=== PATIENT | female | born 1950 | race Caucasian/White ===

== ENCOUNTER 2017-01-28 12:33 | Inpatient (IN) | payer MEDICARE, OTHER ==
[2017-01-28 15:48] VITALS: BMI 26.9
--- NOTE | 2017-01-28 17:01 | HP ---
CIWA Score - CIWA Score Nausea/Vomitin-Mild Nausea/No Vomiting Muscle Tremors: 5 Anxiety: 5 Agitation: 4-Moderately Restless Paroxysmal Sweats: 1-Minimal Palms Moist Orientation: 1-Uncertain about Date Tacttile Disturbances: 0-None Auditory Disturbances: 0-None Visual Disturbances: 0-None Headache: 2-Mild CIWA-Ar Total Score: 19 Admission ROS BHS - HPI Chief Complaint: WITHDRAWAL SX Allergies/Adverse Reactions: Allergies Allergy/AdvReac Type Severity Reaction Status Date / Time No Known Allergies Allergy Verified 01/28/17 16:57 History of Present Illness: 66 YEARS OLD FEMALE WITH LONG HISTORY OF ALCOHOL NICOTINE DEPENDENCE, HAS HYPOTHYROID, HYPERLIPIDEMIA, CHRONIC SINUSITIS, AND DEPRESSION IS ADMITTED TO DETOX Exam Limitations: No Limitations - Ebola screening Have you traveled outside of the country in the last 21 days: No Have you had contact with anyone from an Ebola affected area: No Have you been sick,other than usual withdrawal symptoms: No Do you have a fever: No - Review of Systems Constitutional: Chills, Changes in sleep, Weight Stable EENT: reports: Other (EYE GLASSES) Respiratory: reports: No Symptoms reported Cardiac: reports: No Symptoms Reported GI: reports: Nausea, Poor Fluid Intake, Abdominal cramping : reports: No Symptoms Reported Musculoskeletal: reports: No Symptoms Reported Integumentary: reports: No Symptoms Reported Neuro: reports: Tremors Endocrine: reports: No Symptoms Reported Hematology: reports: No Symptoms Reported Psychiatric: reports: Judgement Intact, Depressed Other Systems: Reviewed and Negative Patient History - Patient Medical History Hx Anemia: No Hx Asthma: No Hx Chronic Obstructive Pulmonary Disease (COPD): No Hx Cancer: No Hx Cardiac Disorders: No Hx Congestive Heart Failure: No Hx Hypertension: No Hx Hypercholesterolemia: Yes (zocor 40mg ) Hx Pacemaker: No HX Cerebrovascular Accident: No Hx Seizures: No Hx Diabetes: No Hx Gastrointestinal Disorders: No Hx Liver Disease: No Hx Genitourinary Disorders: No Hx Sexually Transmitted Disorders: No Hx Renal Disease (ESRD): No Hx Thyroid Disease: Yes (HYPOTHYROIDISM 137mcq) Hx Human Immunodeficiency Virus (HIV): No Hx Hepatitis C: No Hx Depression: Yes Hx Suicide Attempt: No Hx Bipolar Disorder: No Hx Schizophrenia: No - Patient Surgical History Past Surgical History: Yes Hx Neurologic Surgery: No Hx Cataract Extraction: No Hx Cardiac Surgery: No Hx Lung Surgery: No Hx Breast Surgery: No Hx Breast Biopsy: No Hx Abdominal Surgery: No Hx Appendectomy: No Hx Cholecystectomy: No Hx Genitourinary Surgery: No Hx Section: No Hx Orthopedic Surgery: No Hx Hysterectomy: No Other Surgical History: Sinus sx in 1999 and 2009 Anesthesia Reaction: No - PPD History Previous Implant?: Yes Documented Results: Negative w/proof Implanted [facility] Admission?: Yes Date: 02/02/16 Results: 0mm PPD to be Administered?: Yes - Reproductive History Patient is a Female of Child Bearing Age (11 -55 yrs old): No Last Menstrual Period: 11/16/98 Patient : No - Smoking Cessation Smoking history: Current every day smoker Have you smoked in the past 12 months: Yes Aproximately how many cigarettes per day: 6 Cigars Per Day: 0 Hx Chewing Tobacco Use: No Initiated information on smoking cessation: Yes 'Breaking Loose' booklet given: 01/28/17 - Substance & Tx. History Hx Alcohol Use: Yes Hx Substance Use: No Substance Use Type: Alcohol Hx Substance Use Treatment: Yes - Substances Abused Alcohol Route: Oral Frequency: Daily Alcohol-wine/rum Route: Oral Frequency: Daily Amount used: 1 pt. Age of first use: 12 Date of Last Use: 01/28/17 Family Disease History - Family Disease History Family Disease History: CA: Father (), Brother (leukemia), Respiratory: Mother () Admission Physical Exam BHS - Vital Signs Vital Signs: Vital Signs - 24 hr 01/28/17 15:44 Temperature 98.7 F Pulse Rate 96 H Respiratory 20 Rate Blood Pressure 156/99 - Physical General Appearance: Yes: Nourished, Appropriately Dressed, Moderate Distress, Tremorous, Irritable, Sweating, Anxious HEENTM: Yes: Hearing grossly Normal, Normal ENT Inspection, Normocephalic, Normal Voice Respiratory: Yes: Chest Non-Tender, Lungs Clear, Normal Breath Sounds, No Respiratory Distress, No Accessory Muscle Use Neck: Yes: Supple, Trachea in good position Breast: Yes: Breasts Symetrical Cardiology: Yes: Regular Rhythm, S1, S2, Tachycardia Abdominal: Yes: Non Tender, Soft Genitourinary: Yes: Within Normal Limits Back: Yes: Normal Inspection Musculoskeletal: Yes: full range of Motion, Gait Steady Extremities: Yes: Normal Range of Motion, Non-Tender, Tremors Neurological: Yes: Alert, Motor Strength 5/5, Normal Response, Depressed Affect Integumentary: Yes: Warm Lymphatic: Yes: Within Normal Limits - Diagnostic (1) Alcohol dependence with uncomplicated withdrawal Current Visit: Yes Status: Acute (2) Depression Current Visit: Yes Status: Suspected Qualifiers: Depression Type: dysthymia Qualified Code(s): F34.1 - Dysthymic disorder (3) Hypercholesteremia Current Visit: Yes Status: Acute (4) Nicotine dependence Current Visit: Yes Status: Acute Qualifiers: Nicotine product type: cigarettes Substance use status: in withdrawal Qualified Code(s): F17.213 - Nicotine dependence, cigarettes, with withdrawal (5) Hypothyroidism Current Visit: Yes Status: Acute Qualifiers: Hypothyroidism type: acquired Qualified Code(s): E03.9 - Hypothyroidism, unspecified Cleared for Admission BHS - Detox or Rehab [facility] Level of Care: Medically Managed Detox Regimen/Protocol: Librium S Breath Alcohol Content Breath Alcohol Content: 0 Urine Pregancy Test - Result Urine Test Results: Negative- NO Line Present Urine Drug Screen - Results Drug Screen Negative: No Urine Drug Screen Results: BZO-Benzodiazepines
[2017-01-28] MEDS ORDERED: P-EPHED 60MG/TRIPROLIDI 2.5MG TABLET PO PRN (17:06)
[2017-01-28] MEDS ORDERED: hydrOXYzine PAMOATE 50 MG CAPSULE (FP) PO PRN (17:06)
[2017-01-28] MEDS ORDERED: MAGNESIUM CITRATE 300 ML BOTTLE PO PRN (17:06)
[2017-01-28] MEDS ORDERED: MENTHOL/PHENOL 1 EACH UD MM PRN (17:06)
[2017-01-28] MEDS ORDERED: chlordiazePOXIDE HCL 25 MG CAPSULE PO PRN (17:06)
[2017-01-28] MEDS ORDERED: NICOTINE POLACRILEX 2 MG GUM BC PRN (17:06)
[2017-01-28] MEDS ORDERED: guaiFENesin/D-METHORPHAN HB 10 ML UNIT-DOSE CUPS PO PRN (17:06)
[2017-01-28] MEDS ORDERED: MAGNESIUM HYDROX 2400MG/30ML ORAL SUSPENSION 30 ML CUP PO PRN (17:06)
[2017-01-28] MEDS ORDERED: MAG HYDROX/AL HYDROX/SIMETH 30 ML UNIT-DOSE CUP PO PRN (17:06)
[2017-01-28] MEDS ORDERED: LOPERAMIDE HCL 2 MG CAPSULE PO PRN (17:06)
[2017-01-28] MEDS ORDERED: ACETAMINOPHEN 325 MG TABLET (FP) PO PRN (17:06)
[2017-01-28] MEDS ORDERED: IBUPROFEN 400 MG TABLET (FP) PO PRN (17:06)
[2017-01-28] MEDS ORDERED: cloNIDine HCL 0.1 MG TABLET PO PRN (17:08)
[2017-01-28] MEDS ORDERED: chlordiazePOXIDE HCL 25 MG CAPSULE PO ONE (18:30)
[2017-01-28] MEDS: ATORVASTATIN CA 20 MG TABLET (FP) PO SCH (22:47)
[2017-01-28] MEDS: chlordiazePOXIDE HCL 25 MG CAPSULE PO SCH (22:47)
[2017-01-28] MEDS: THIAMINE HCL 100 MG TABLET (FP) PO SCH (22:47)
[2017-01-28 23:08] LABS: URINE APPEARANCE CLEAR; URINE BILIRUBIN NEGATIVE (NEGATIVE); URINE COLOR STRAW; URINE GLUCOSE (UA) NEGATIVE (NEGATIVE); URINE KETONE NEGATIVE (NEGATIVE); URINE LEUK ESTERASE NEGATIVE (NEGATIVE); URINE NITRITE NEGATIVE (NEGATIVE); URINE PROTEIN NEGATIVE (NEGATIVE); URINE UROBILINOGEN NEGATIVE E.U./dl (0.2-1.0)
[2017-01-28 23:12] LABS: URINE BLOOD 2+ (NEGATIVE)
[2017-01-28 23:16] LABS: URINE HYALINE CAST 1 /lpf; URINE MUCUS RARE; URINE RBC 10 /hpf (0-3); URINE WBC <1 /hpf (3-5)
[2017-01-28] MEDS: diphenhydrAMINE HCL 50 MG CAPSULE PO PRN (23:16)
[2017-01-29] MEDS: chlordiazePOXIDE HCL 25 MG CAPSULE PO SCH ×4 (05:42→22:29)
[2017-01-29] MEDS ORDERED: LEVOTHYROXINE NA 125 MCG TABLET (FP) PO SCH (07:00)
[2017-01-29] MEDS: LEVOTHYROXINE PO SCH (07:01)
[2017-01-29] MEDS: PRENATAL VITAMINS W/ FOLIC ACID TABLET (FP) PO SCH (10:12)
[2017-01-29] MEDS: NICOTINE 14 MG/24 HOURS TOPICAL PATCH TD SCH (10:13)
[2017-01-29 10:39] LABS: ALBUMIN 3.6 g/dl (3.4-5.0); ALK PHOS 63 U/L (45-117); ANION GAP 14 (8-16); BILIRUBIN,TOTAL 0.3 mg/dL (0.2-1.0); CALCIUM 8.5 mg/dL (8.5-10.1); CO2 26 mmol/L (21-32); CREATININE 0.7 mg/dL (0.55-1.02); GLUCOSE,RANDOM 119 mg/dL (74-106); SGOT/AST 45 U/L (15-37); SGPT/ALT 58 U/L (12-78); TOT PROT 6.7 g/dl (6.4-8.2)
[2017-01-29 10:41] LABS: MCHC 33.4 g/dl (32.0-36.0); MEAN PLT VOLUME 9.1 fl (7.5-11.1); PLATELET COUNT 270 K/MM3 (134-434); RDW 13.4 % (11.6-15.6); WHITE BLOOD COUNT 8.4 K/mm3 (4.0-10.0)
--- NOTE | 2017-01-29 11:07 | EKG ---
Test Reason : Blood Pressure : / mmHG Vent. Rate : 097 BPM Atrial Rate : 097 BPM P-R Int : 132 ms QRS Dur : 078 ms QT Int : 372 ms P-R-T Axes : 052 056 032 degrees QTc Int : 472 ms NORMAL SINUS RHYTHM POSSIBLE LEFT ATRIAL ENLARGEMENT NONSPECIFIC ST ABNORMALITY ABNORMAL ECG NO PREVIOUS ECGS AVAILABLE Confirmed by NICOLE GRANADOS, CLAY ([id number]) on 01/29/2017 11:07:14 AM Referred By: Ian Zhou Confirmed By:CLAY RIVERA MD
--- NOTE | 2017-01-29 11:58 | PN ---
S CIWA - CIWA Score Nausea/Vomitin Muscle Tremors: 3 Anxiety: 3 Agitation: 2 Paroxysmal Sweats: 3 Orientation: 0-Oriented Tacttile Disturbances: 1-Very Mild Itch/Numbness Auditory Disturbances: 0-None Visual Disturbances: 0-None Headache: 0-None Present CIWA-Ar Total Score: 14 S Progress Note (SOAP) Subjective: interrupted sleep, sweats, shakes , Objective: 01/29/17 11:56 Vital Signs Temperature 99.9 F H 01/29/17 09:49 Pulse Rate 94 H 01/29/17 09:49 Respiratory Rate 18 01/29/17 09:49 Blood Pressure 143/75 01/29/17 09:49 O2 Sat by Pulse Oximetry (%) Laboratory Tests 01/28/17 01/29/17 01/29/17 22:50 06:00 06:00 WBC 8.4 D RBC 3.89 Hgb 12.9 Hct 38.5 MCV 99.0 H MCHC 33.4 RDW 13.4 Plt Count 270 MPV 9.1 Sodium 144 Potassium 3.6 Chloride 104 Carbon Dioxide 26 Anion Gap 14 BUN 10 D Creatinine 0.7 Creat Clearance w eGFR > 60 Random Glucose 119 H Calcium 8.5 Total Bilirubin 0.3 D AST 45 H D ALT 58 D Alkaline Phosphatase 63 Total Protein 6.7 Albumin 3.6 Urine Color Straw Urine Appearance Clear Urine pH 7.0 Ur Specific [place] 1.014 Urine Protein Negative Urine Glucose (UA) Negative Urine Ketones Negative Urine Blood 2+ H Urine Nitrite Negative Urine Bilirubin Negative Urine Urobilinogen Negative Ur Leukocyte Esterase Negative Urine RBC 10 Urine WBC <1 Ur Epithelial Cells Rare Hyaline Casts 1 Urine Mucus Rare pt aox3 in nad, lying in bed Assessment: 01/29/17 11:57 withdrawal sx's Plan: cont. detox increase fluids pysch eval
--- NOTE | 2017-01-29 14:39 | CONSULT ---
[facility] Psychiatric Consult - Data Date of interview: 01/29/17 Admission source: [facility] Identifying data: [facility] for this 66 y/o female seeking detox treatment on for alcohol dependence.Patient is single without children,domiciled,unemployed and supported on SSI benefits. Substance Abuse History: - Smoking Cessation. Smoking history: Current every day smoker. Have you smoked in the past 12 months: Yes. Aproximately how many cigarettes per day: 6. Cigars Per Day: 0. Hx Chewing Tobacco Use: No. Initiated information on smoking cessation: Yes. 'Breaking Loose' booklet given : 01/28/17. - Substance & Tx. History. Hx Alcohol Use: Yes. Hx Substance Use : No. Substance Use Type: Alcohol. Hx Substance Use Treatment: Yes. - Substances Abused. Alcohol. Route: Oral. Frequency: Daily. Alcohol- wine/rum. Route: Oral. Frequency: Daily. Amount used: 1 pt. Age of first use : 12. Date of Last Use: 01/28/17. Confirmed by the patient in this session. Medical History: Hypothyroidism,hypercholesterolemia and a history of surgery for sinusitis. Psychiatric History: Diagnosed with MDD (1982).History of " more than 10 psychiatric hospitalizations ".Patient is known to [facility], [facility] and [facility] in [facility].Ms Sumnergan her psychiatric outpatient services at the [facility] in [facility].Current medications (as per patient) : prozac 40 mg/day + remeron 45 mg/ hs.Patient reports that she last took these medications about a week ago.History of a suicide attempt via overdose with medications (2006). Physical/Sexual Abuse/Trauma History: Patient denies. Additional Comment: Urine Drug Screen Results: BZO-Benzodiazepines.Noted. Mental Status Exam - Mental Status Exam Alert and Oriented to: Time, Place, Person Cognitive Function: Good Patient Appearance: Well Groomed Mood: Nervous, Withdrawn, Anxious Affect: Mood Congruent Patient Behavior: Fatigued, Appropriate, Cooperative Speech Pattern: Clear, Appropriate Voice Loudness: Normal Thought Process: Goal Oriented Thought Disorder: Not Present Hallucinations: Denies Suicidal Ideation: Denies Homicidal Ideation: Denies Insight/Judgement: Fair Sleep: Poorly, Difficulty falling asleep Appetite: Good Muscle strength/Tone: Normal Gait/Station: Normal Psychiatric Findings - Problem List ([place] 1, 2,3) (1) Alcohol dependence with uncomplicated withdrawal Current Visit: Yes Status: Acute (2) MDD (major depressive disorder), recurrent episode, moderate Current Visit: Yes Status: Chronic (3) Nicotine dependence Current Visit: Yes Status: Acute Qualifiers: Nicotine product type: cigarettes Substance use status: in withdrawal Qualified Code(s): F17.213 - Nicotine dependence, cigarettes, with withdrawal (4) Hypothyroidism Current Visit: Yes Status: Chronic Qualifiers: Hypothyroidism type: acquired Qualified Code(s): E03.9 - Hypothyroidism, unspecified (5) Hypercholesteremia Current Visit: Yes Status: Chronic (6) Insomnia Current Visit: Yes Status: Acute - Initial Treatment Plan Initial Treatment Plan: Psychoeducation.Detoxification.Medications : prozac 40 mg po daily + remeron 30 mg po hs (reduced in view of potential for orthostasis) .Side effects/benefits discussed with patient.She is in agreement with this plan.Observation.Medications verified via review of pharmacy claims on 01/21/17 @ [facility]No scripts needed at discharge.
[2017-01-29] MEDS: MIRTAZAPINE 30 MG TABLET (FP) PO SCH (22:29)
[2017-01-29] MEDS: THIAMINE HCL 100 MG TABLET (FP) PO SCH (22:29)
[2017-01-29] MEDS: ATORVASTATIN CA 20 MG TABLET (FP) PO SCH (22:29)
[2017-01-30] MEDS: chlordiazePOXIDE HCL 25 MG CAPSULE PO SCH ×3 (06:09→17:45)
[2017-01-30] MEDS: LEVOTHYROXINE PO SCH (06:09)
[2017-01-30] MEDS: NICOTINE 14 MG/24 HOURS TOPICAL PATCH TD SCH (10:16)
[2017-01-30] MEDS: FLUoxetine HCL 20 MG CAPSULE (FP) PO SCH (10:16)
[2017-01-30] MEDS: PRENATAL VITAMINS W/ FOLIC ACID TABLET (FP) PO SCH (10:16)
--- NOTE | 2017-01-30 10:36 | PN ---
[facility] CIWA - CIWA Score Nausea/Vomitin-No Nausea/No Vomiting Muscle Tremors: 4-Moderate,w/Arms Extend Anxiety: 2 Agitation: 3 Paroxysmal Sweats: 2 Orientation: 0-Oriented Tacttile Disturbances: 0-None Auditory Disturbances: 0-None Visual Disturbances: 0-None Headache: 0-None Present CIWA-Ar Total Score: 11 [facility] Progress Note (SOAP) Subjective: i have a sinus infection sweats shakes body aches Objective: 01/30/17 10:35 Vital Signs Temperature 98.2 F 01/30/17 10:10 Pulse Rate 92 H 01/30/17 10:10 Respiratory Rate 18 01/30/17 10:10 Blood Pressure 120/82 01/30/17 10:10 O2 Sat by Pulse Oximetry (%) Laboratory Tests 01/28/17 01/28/17 01/29/17 06:00 22:50 06:00 WBC 8.4 D RBC 3.89 Hgb 12.9 Hct 38.5 MCV 99.0 H MCHC 33.4 RDW 13.4 Plt Count 270 MPV 9.1 Sodium Potassium Chloride Carbon Dioxide Anion Gap BUN Creatinine Creat Clearance w eGFR Random Glucose Calcium Total Bilirubin AST ALT Alkaline Phosphatase Total Protein Albumin Urine Color Straw Urine Appearance Clear Urine pH 7.0 Ur Specific [place] 1.014 Urine Protein Negative Urine Glucose (UA) Negative Urine Ketones Negative Urine Blood 2+ H Urine Nitrite Negative Urine Bilirubin Negative Urine Urobilinogen Negative Ur Leukocyte Esterase Negative Urine RBC 10 Urine WBC <1 Ur Epithelial Cells Rare Hyaline Casts 1 Urine Mucus Rare RPR Titer Hepatitis C Antibody <0.1 01/29/17 01/29/17 06:00 06:00 WBC RBC Hgb Hct MCV MCHC RDW Plt Count MPV Sodium 144 Potassium 3.6 Chloride 104 Carbon Dioxide 26 Anion Gap 14 BUN 10 D Creatinine 0.7 Creat Clearance w eGFR > 60 Random Glucose 119 H Calcium 8.5 Total Bilirubin 0.3 D AST 45 H D ALT 58 D Alkaline Phosphatase 63 Total Protein 6.7 Albumin 3.6 Urine Color Urine Appearance Urine pH Ur Specific [place] Urine Protein Urine Glucose (UA) Urine Ketones Urine Blood Urine Nitrite Urine Bilirubin Urine Urobilinogen Ur Leukocyte Esterase Urine RBC Urine WBC Ur Epithelial Cells Hyaline Casts Urine Mucus RPR Titer Nonreactive Hepatitis C Antibody awake/alert ambulating no acute distress Assessment: 01/30/17 10:37 withdrawal sx Plan: continue detox increase fluids augmentin 875mg bid x 7 days ocean spray
[2017-01-30] MEDS: SODIUM CHLORIDE NASAL SPRAY 44 ML BOTTLE NS PRN (12:38)
[2017-01-30] MEDS: AMOX TR/POT CLAV 875MG/125MG TABLETS (FP) PO SCH (17:45)
[2017-01-30] MEDS: chlordiazePOXIDE 5 MG CAPSULE PO SCH (22:18)
[2017-01-30] MEDS: ATORVASTATIN CA 20 MG TABLET (FP) PO SCH (22:18)
[2017-01-30] MEDS: diphenhydrAMINE HCL 50 MG CAPSULE PO PRN (22:18)
[2017-01-30] MEDS: THIAMINE HCL 100 MG TABLET (FP) PO SCH (22:18)
[2017-01-30] MEDS: MIRTAZAPINE 30 MG TABLET (FP) PO SCH (22:18)
[2017-01-31] MEDS: chlordiazePOXIDE 5 MG CAPSULE PO SCH ×3 (06:04→17:55)
[2017-01-31] MEDS: LEVOTHYROXINE PO SCH (06:04)
[2017-01-31] MEDS: AMOX TR/POT CLAV 875MG/125MG TABLETS (FP) PO SCH ×2 (07:59→18:10)
--- NOTE | 2017-01-31 09:00 | PN ---
S Progress Note (SOAP) Subjective: ALERT,IRRITABLE,ANXIOUS,INTERRUPTED SLEEP Objective: 01/31/17 08:59 Vital Signs Temperature 97 F L 01/31/17 06:27 Pulse Rate 69 01/31/17 06:27 Respiratory Rate 18 01/31/17 06:27 Blood Pressure 134/74 01/31/17 06:27 O2 Sat by Pulse Oximetry (%) Assessment: 01/31/17 09:00 WITHDRAWAL SYMPTOM Plan: CONTINUE DETOX
[2017-01-31] MEDS: PRENATAL VITAMINS W/ FOLIC ACID TABLET (FP) PO SCH (10:34)
[2017-01-31] MEDS: FLUoxetine HCL 20 MG CAPSULE (FP) PO SCH (10:34)
[2017-01-31] MEDS: NICOTINE 14 MG/24 HOURS TOPICAL PATCH TD SCH (10:36)
[2017-01-31] MEDS: MIRTAZAPINE 30 MG TABLET (FP) PO SCH (22:42)
[2017-01-31] MEDS: chlordiazePOXIDE HCL 10 MG CAPSULE PO SCH (22:42)
[2017-01-31] MEDS: ATORVASTATIN CA 20 MG TABLET (FP) PO SCH (22:42)
[2017-01-31] MEDS: THIAMINE HCL 100 MG TABLET (FP) PO SCH (22:42)
[2017-01-31] MEDS: diphenhydrAMINE HCL 50 MG CAPSULE PO PRN (22:43)
--- NOTE | 2017-01-31 23:35 | PN ---
S Progress Note Note: received nurse call bp 148/106 no chest pain no shortness of breath, no headache no blurred vision hydrochlorothiazide 12.5 mg x 1 now repeat bp around 0130 am report to md/institutional research coordinator if bp above 140/90 or below 100/60 continue detox
[2017-02-01] MEDS: chlordiazePOXIDE HCL 10 MG CAPSULE PO SCH ×2 (05:43→10:41)
--- NOTE | 2017-02-01 07:38 | PN ---
S Progress Note (SOAP) Subjective: ALERT,NO COMPLAINT Objective: 02/01/17 07:36 Vital Signs Temperature 97.3 F L 02/01/17 06:15 Pulse Rate 68 02/01/17 06:15 Respiratory Rate 16 02/01/17 06:15 Blood Pressure 136/87 02/01/17 06:15 O2 Sat by Pulse Oximetry (%) Assessment: 02/01/17 07:37 DETOX COMPLETED,NO WITHDRAWAL SYMPTOM Plan: DISCHARGE TODAY,FOLLOW UP WITH AFTER CARE PROGRAM ARRANGEMENT
--- NOTE | 2017-02-01 07:44 | DS ---
[facility] Detox Discharge Summary Admission Date: 01/28/17 Discharge Date: 02/01/17 - History Present History: Alcohol Dependence Additional Comments: FOLLOW UP WITH AFTER CARE PROGRAM ARRANGEMENT ,CONTIUNE MEDICATIONS,TO SEE PMD FOR FOLLOW UP FOR MEDICAL PROBLEM Pertinent Past History: HYPERCHOLESTEROLEMIA HYPOTHYROIDISM NICOTINE DEPENDENCE DEPRESSION - Physical Exam Results Vital Signs: Vital Signs Temperature 97.3 F L 02/01/17 06:15 Pulse Rate 68 02/01/17 06:15 Respiratory Rate 16 02/01/17 06:15 Blood Pressure 136/87 02/01/17 06:15 O2 Sat by Pulse Oximetry (%) Pertinent Admission Physical Exam Findings: WITHDRAWAL SYMPTOM - Treatment Hospital Course: Detox Protocol Followed, Detoxed Safely, Responded well, Discharged Condition Good, Rehab Referral Accepted Patient has Accepted a Rehab Referral to: [facility] - Medication Discharge Medications: Ambulatory Orders Levothyroxine [Synthroid -] 137 mcg PO DAILY 02/04/16 Simvastatin [Zocor -] 40 mg PO HS #30 tablet 02/04/16 Mirtazapine [Remeron -] 45 mg PO HS #90 tablet 02/08/16 Fluoxetine HCl [Prozac -] 40 mg PO DAILY 01/28/17 - Diagnosis (1) Alcohol dependence with uncomplicated withdrawal Current Visit: Yes Status: Acute (2) Insomnia Current Visit: Yes Status: Acute (3) Nicotine dependence Current Visit: Yes Status: Acute Qualifiers: Nicotine product type: cigarettes Substance use status: in withdrawal Qualified Code(s): F17.213 - Nicotine dependence, cigarettes, with withdrawal (4) Hypercholesteremia Current Visit: Yes Status: Chronic (5) Hypothyroidism Current Visit: Yes Status: Chronic Qualifiers: Hypothyroidism type: acquired Qualified Code(s): E03.9 - Hypothyroidism, unspecified (6) MDD (major depressive disorder), recurrent episode, moderate Current Visit: Yes Status: Chronic - AMA Did Patient Leave Against Medical Advice: No
[2017-02-01] MEDS: LEVOTHYROXINE PO SCH (07:52)
[2017-02-01] MEDS: AMOX TR/POT CLAV 875MG/125MG TABLETS (FP) PO SCH (08:07)
[2017-02-01 10:03] VITALS: BP 126/66; PULSE 83; TEMP 98.4
[2017-02-01] MEDS: PRENATAL VITAMINS W/ FOLIC ACID TABLET (FP) PO SCH (10:39)
[2017-02-01] MEDS: SODIUM CHLORIDE NASAL SPRAY 44 ML BOTTLE NS PRN (10:39)
[2017-02-01] MEDS: NICOTINE 14 MG/24 HOURS TOPICAL PATCH TD SCH (10:39)
[2017-02-01] MEDS: FLUoxetine HCL 20 MG CAPSULE (FP) PO SCH (10:41)
[2017-02-01] MEDS ORDERED: HYDROCHLOROTHIAZIDE 12.5 MG CAPSULE (FP) PO ONE (23:30)
== END 2017-02-01 12:18 | disposition other institution (70) | DRG 897 ==
LOC: YASAS 12:33 → Y6N 18:13
PROVIDERS: ADMIT Internal Medicine Addiction Medicine; ATTEND Internal Medicine Addiction Medicine
PROC: HZ2ZZZZ Detoxification Services for Substance Abuse Treatment (ICD-10-PCS; principal; 2017-02-01)
DX: F10.230 Alcohol dependence with withdrawal, uncomplicated (principal); F33.1 Major depressive disorder, recurrent, moderate; F17.213 Nicotine dependence, cigarettes, with withdrawal; G47.00 Insomnia, unspecified; E03.9 Hypothyroidism, unspecified; E78.00 Pure hypercholesterolemia, unspecified
CPT/HCPCS: 36415; 80053; 81003; 81015; 85027; 86593; 93005; 93010

== ENCOUNTER 2017-02-01 12:33 | Inpatient (IN) | payer MEDICARE, OTHER ==
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
[2017-02-01] MEDS ORDERED: MAGNESIUM CITRATE 300 ML BOTTLE PO PRN (13:57)
[2017-02-01] MEDS ORDERED: guaiFENesin/D-METHORPHAN HB 10 ML UNIT-DOSE CUPS PO PRN (13:57)
[2017-02-01] MEDS ORDERED: MENTHOL/PHENOL 1 EACH UD MM PRN (13:57)
[2017-02-01] MEDS ORDERED: IBUPROFEN 400 MG TABLET (FP) PO PRN (13:57)
[2017-02-01] MEDS ORDERED: MAGNESIUM HYDROX 2400MG/30ML ORAL SUSPENSION 30 ML CUP PO PRN (13:57)
[2017-02-01] MEDS ORDERED: MAG HYDROX/AL HYDROX/SIMETH 30 ML UNIT-DOSE CUP PO PRN (13:57)
[2017-02-01] MEDS ORDERED: ACETAMINOPHEN 325 MG TABLET (FP) PO PRN (13:57)
[2017-02-01] MEDS ORDERED: LOPERAMIDE HCL 2 MG CAPSULE PO PRN (13:57)
--- NOTE | 2017-02-01 13:57 | HP ---
REANNA GRANADOS Rehab Assess/Revision - Admission History Admitted to Rehab from: [facility] [place] Date of Admission to Rehab: 02/01/17 - Vital signs Vital Signs: Vital Signs Period Temp Pulse Resp BP Sys/Chappell Pulse Ox Last 24 Hr 98.2 F 80 19 104/64 - Findings Detox History & Physical reviewed: Yes Concur with findings: Yes Comments/Additional Findings: FOR REHAB PROTOCOL
[2017-02-01] MEDS: ATORVASTATIN CA 20 MG TABLET (FP) PO SCH (21:32)
[2017-02-01] MEDS: THIAMINE HCL 100 MG TABLET (FP) PO SCH (21:32)
[2017-02-01] MEDS: MIRTAZAPINE 15 MG TABLET (FP) PO SCH (22:05)
[2017-02-01] MEDS ORDERED: PT OWN MED DRAWER 7, Y5N ONE (22:38)
[2017-02-02] MEDS ORDERED: PT OWN MED DRAWER 7, Y5N ONE (05:04)
[2017-02-02] MEDS: LEVOTHYROXINE 112 MCG, LEVOTHYROXINE 25 MCG PO SCH (06:28)
[2017-02-02] MEDS ORDERED: LEVOTHYROXINE PO SCH (07:00)
[2017-02-02] MEDS ORDERED: LEVOTHYROXINE NA 25 MCG TABLET (FP) PO SCH (07:00)
[2017-02-02] MEDS ORDERED: AMOX TR/POT CLAV 875MG/125MG TABLETS (FP) PO SCH (08:00)
[2017-02-02] MEDS: FLUoxetine HCL 20 MG CAPSULE (FP) PO SCH (09:44)
[2017-02-02] MEDS: PRENATAL VITAMINS W/ FOLIC ACID TABLET (FP) PO SCH (09:44)
[2017-02-02] MEDS: AMOX TR/POT CLAV 875MG/125MG TABLETS (FP) PO SCH (17:44)
[2017-02-02] MEDS: ATORVASTATIN CA 20 MG TABLET (FP) PO SCH (21:32)
[2017-02-02] MEDS: THIAMINE HCL 100 MG TABLET (FP) PO SCH (21:32)
[2017-02-02] MEDS: MIRTAZAPINE 15 MG TABLET (FP) PO SCH (21:32)
[2017-02-03] MEDS ORDERED: PT OWN MED DRAWER 7, Y5N ONE ×3 (05:37→20:06)
[2017-02-03] MEDS: LEVOTHYROXINE 112 MCG, LEVOTHYROXINE 25 MCG PO SCH (06:51)
[2017-02-03] MEDS: AMOX TR/POT CLAV 875MG/125MG TABLETS (FP) PO SCH ×2 (09:42→17:30)
[2017-02-03] MEDS: FLUoxetine HCL 20 MG CAPSULE (FP) PO SCH (09:42)
[2017-02-03] MEDS: PRENATAL VITAMINS W/ FOLIC ACID TABLET (FP) PO SCH (09:42)
[2017-02-03] MEDS: SODIUM CHLORIDE NASAL SPRAY 44 ML BOTTLE NS PRN ×2 (09:43→20:05)
[2017-02-03] MEDS: MIRTAZAPINE 15 MG TABLET (FP) PO SCH (21:09)
[2017-02-03] MEDS: ATORVASTATIN CA 20 MG TABLET (FP) PO SCH (21:09)
[2017-02-03] MEDS: THIAMINE HCL 100 MG TABLET (FP) PO SCH (21:09)
[2017-02-04] MEDS ORDERED: PT OWN MED DRAWER 7, Y5N ONE ×3 (02:52→22:46)
[2017-02-04] MEDS: LEVOTHYROXINE 112 MCG, LEVOTHYROXINE 25 MCG PO SCH (06:12)
[2017-02-04] MEDS: FLUoxetine HCL 20 MG CAPSULE (FP) PO SCH (09:53)
[2017-02-04] MEDS: PRENATAL VITAMINS W/ FOLIC ACID TABLET (FP) PO SCH (09:53)
[2017-02-04] MEDS: AMOX TR/POT CLAV 875MG/125MG TABLETS (FP) PO SCH ×2 (09:53→17:50)
[2017-02-04] MEDS: SODIUM CHLORIDE NASAL SPRAY 44 ML BOTTLE NS PRN (09:55)
[2017-02-04] MEDS: THIAMINE HCL 100 MG TABLET (FP) PO SCH (21:19)
[2017-02-04] MEDS: ATORVASTATIN CA 20 MG TABLET (FP) PO SCH (21:19)
[2017-02-04] MEDS: MIRTAZAPINE 15 MG TABLET (FP) PO SCH (21:19)
[2017-02-05] MEDS: SODIUM CHLORIDE NASAL SPRAY 44 ML BOTTLE NS PRN ×2 (06:16→10:04)
[2017-02-05] MEDS: LEVOTHYROXINE 112 MCG, LEVOTHYROXINE 25 MCG PO SCH (06:17)
[2017-02-05] MEDS: PRENATAL VITAMINS W/ FOLIC ACID TABLET (FP) PO SCH (10:00)
[2017-02-05] MEDS: AMOX TR/POT CLAV 875MG/125MG TABLETS (FP) PO SCH ×2 (10:00→17:40)
[2017-02-05] MEDS: FLUoxetine HCL 20 MG CAPSULE (FP) PO SCH (10:01)
[2017-02-05] MEDS ORDERED: PT OWN MED DRAWER 7, Y5N ONE ×3 (10:02→12:04)
[2017-02-05] MEDS: ATORVASTATIN CA 20 MG TABLET (FP) PO SCH (21:24)
[2017-02-05] MEDS: MIRTAZAPINE 15 MG TABLET (FP) PO SCH (21:24)
[2017-02-05] MEDS: THIAMINE HCL 100 MG TABLET (FP) PO SCH (21:25)
[2017-02-06] MEDS ORDERED: PT OWN MED DRAWER 7, Y5N ONE ×2 (03:47→17:42)
[2017-02-06] MEDS: LEVOTHYROXINE 112 MCG, LEVOTHYROXINE 25 MCG PO SCH (06:40)
[2017-02-06] MEDS: AMOX TR/POT CLAV 875MG/125MG TABLETS (FP) PO SCH ×2 (10:33→17:42)
[2017-02-06] MEDS: FLUoxetine HCL 20 MG CAPSULE (FP) PO SCH (10:33)
[2017-02-06] MEDS: PRENATAL VITAMINS W/ FOLIC ACID TABLET (FP) PO SCH (10:33)
[2017-02-06] MEDS: SODIUM CHLORIDE NASAL SPRAY 44 ML BOTTLE NS PRN (17:42)
[2017-02-06] MEDS: ATORVASTATIN CA 20 MG TABLET (FP) PO SCH (21:43)
[2017-02-06] MEDS: THIAMINE HCL 100 MG TABLET (FP) PO SCH (21:43)
[2017-02-06] MEDS: MIRTAZAPINE 15 MG TABLET (FP) PO SCH (21:43)
[2017-02-07] MEDS ORDERED: PT OWN MED DRAWER 7, Y5N ONE (03:34)
[2017-02-07] MEDS: LEVOTHYROXINE 112 MCG, LEVOTHYROXINE 25 MCG PO SCH (06:36)
[2017-02-07] MEDS: PRENATAL VITAMINS W/ FOLIC ACID TABLET (FP) PO SCH (10:29)
[2017-02-07] MEDS: AMOX TR/POT CLAV 875MG/125MG TABLETS (FP) PO SCH (10:29)
[2017-02-07] MEDS: FLUoxetine HCL 20 MG CAPSULE (FP) PO SCH (10:29)
[2017-02-07] MEDS: MIRTAZAPINE 15 MG TABLET (FP) PO SCH (21:44)
[2017-02-07] MEDS: ATORVASTATIN CA 20 MG TABLET (FP) PO SCH (21:45)
[2017-02-07] MEDS: THIAMINE HCL 100 MG TABLET (FP) PO SCH (21:45)
[2017-02-07] MEDS: diphenhydrAMINE HCL 50 MG CAPSULE PO PRN (21:46)
[2017-02-08] MEDS: LEVOTHYROXINE 112 MCG, LEVOTHYROXINE 25 MCG PO SCH (06:23)
--- NOTE | 2017-02-08 10:25 | PN ---
Psychiatric Progress Note Vital Signs: Vital Signs Period Temp Pulse Resp BP Sys/Chappell Pulse Ox Last 24 Hr 98.0 F 79 16-18 160/69 Date of Session: 02/08/17 Chief Complaint:: Santos depressed,thinking a lot,still some cravings and dreams about drinking. HPI: Patient addressed Alcohol dependence comorbid with Major Depressive Disorder. ROS: Significant for Hypothyroidism,Hyperlipidemia. Current Medications: Active Medications Generic Name Dose Route Start Last Admin Trade Name Freq PRN Reason Stop Dose Admin Acetaminophen 650 mg 02/01/17 13:57 Tylenol - PO Q4H PRN FEVER OR PAIN Al Hydroxide/Mg Hydroxide 30 ml 02/01/17 13:57 Mylanta Oral Suspension - PO Q6H PRN DYSPEPSIA Aripiprazole 5 mg 02/08/17 10:30 Abilify PO DAILY CURT Atorvastatin Calcium 20 mg 02/01/17 22:00 02/07/17 21:45 Lipitor - PO 20 mg HS CURT Administration Diphenhydramine HCl 50 mg 02/01/17 13:57 02/07/17 21:46 Benadryl - PO 50 mg HSMR1 PRN Administration FOR ITCHING Eucalyptus/Menthol/Phenol/Sorbitol 1 each 02/01/17 13:57 Cepastat Lozenge - MM Q4H PRN SORE THROAT Fluoxetine HCl 60 mg 02/08/17 10:30 Prozac - PO DAILY [facility] Guaifenesin 10 ml 02/01/17 13:57 Robitussin Dm - PO Q6H PRN COUGH Hydroxyzine Pamoate 50 mg 02/01/17 13:57 Vistaril - PO Q4H PRN AGITATION Ibuprofen 400 mg 02/01/17 13:57 Motrin - PO Q6H PRN PAIN Levothyroxine Sodium 112 mcg/ 137 mcg 02/02/17 07:00 02/08/17 06:23 Levothyroxine Sodium 25 mcg PO 137 mcg DAILY@0700 CURT Administration Loperamide HCl 4 mg 02/01/17 13:57 Imodium - PO Q6H PRN DIARRHEA Magnesium Hydroxide 30 ml 02/01/17 13:57 Milk Of Magnesia - PO DAILY PRN CONSTIPATION Mirtazapine 45 mg 02/01/17 22:00 02/07/17 21:44 Remeron - PO 45 mg HS CURT Administration Multivit/Folic Acid/Iron 1 tab 02/02/17 10:00 02/07/17 10:29 Vitamins (Sjr) - PO 1 tab DAILY CURT Administration Pseudoephedrine/Triprolidine 1 combo 02/01/17 13:57 Actifed - PO TID PRN NASAL CONGESTION Sodium Chloride 2 spray 02/02/17 21:34 02/06/17 17:42 [place] Nasal [place] - NS 2 sprays TID PRN Administration NASAL CONGESTION Thiamine HCl 100 mg 02/01/17 22:00 02/07/17 21:45 Vitamin B1 - PO 100 mg HS CURT Administration Current Side Effect: No Lab tests ordered: No Lab tests reviewed: Yes Provider note:: Chart was revuewed,Attending Admission notes appreciated.Patient addressed continues anxiety,depressed mood,stil some craving and thoughts about drniking.Properties of Prozac and Abilify has been discussed with the patient including side effects profile,benefits adn dose adjustment.Patient agrees to start Abilify 5 mg po daily and Prozac 60 mg po daily(will be adjusted from 40 mg po daily to 60 mg po daily). Supportive therapy provided including relaxation techniques,behavioral odification.Emotional support provided. Total face to face time:: 35 Mental Status Exam - Mental Status Exam Alert and Oriented to: Time, Place, Person Cognitive Function: Grossly Intact Patient Appearance: Well Groomed Mood: Sad, Anxious Affect: Labile Patient Behavior: Cooperative Speech Pattern: Clear Voice Loudness: Mildly Soft/Quiet Thought Process: Goal Oriented Thought Disorder: Not Present Hallucinations: Denies Suicidal Ideation: Denies Homicidal Ideation: Denies Insight/Judgement: Fair Sleep: Fair Appetite: Good Muscle strength/Tone: Normal Gait/Station: Normal Psychiatric Treatment Plan - Problem List (1) Nicotine dependence Current Visit: No Qualifiers: Qualified Code(s): F17.213 - Nicotine dependence, cigarettes, with withdrawal (2) Alcohol dependence Current Visit: No (3) Hypercholesteremia Current Visit: No (4) Hypothyroidism Current Visit: No Qualifiers: Qualified Code(s): E03.9 - Hypothyroidism, unspecified (5) MDD (major depressive disorder), recurrent episode, moderate Current Visit: No
[2017-02-08] MEDS: PRENATAL VITAMINS W/ FOLIC ACID TABLET (FP) PO SCH (10:52)
[2017-02-08] MEDS: FLUoxetine HCL 20 MG CAPSULE (FP) PO SCH ×2 (10:53→10:54)
[2017-02-08] MEDS: ARIPiprazole 5 MG TABLET (FP) PO SCH (10:53)
[2017-02-08] MEDS ORDERED: COLLOIDAL OATMEAL 1 BAR EACH TP PRN (12:23)
[2017-02-08] MEDS: MIRTAZAPINE 15 MG TABLET (FP) PO SCH (21:33)
[2017-02-08] MEDS: ATORVASTATIN CA 20 MG TABLET (FP) PO SCH (21:33)
[2017-02-08] MEDS: THIAMINE HCL 100 MG TABLET (FP) PO SCH (21:34)
[2017-02-09] MEDS ORDERED: PT OWN MED DRAWER 7, Y5N ONE ×2 (06:28→20:27)
[2017-02-09] MEDS: LEVOTHYROXINE 112 MCG, LEVOTHYROXINE 25 MCG PO SCH (06:56)
[2017-02-09] MEDS: FLUoxetine HCL 20 MG CAPSULE (FP) PO SCH (10:23)
[2017-02-09] MEDS: PRENATAL VITAMINS W/ FOLIC ACID TABLET (FP) PO SCH (10:23)
[2017-02-09] MEDS: ARIPiprazole 5 MG TABLET (FP) PO SCH (10:24)
[2017-02-09] MEDS: hydrOXYzine PAMOATE 50 MG CAPSULE (FP) PO PRN (18:05)
[2017-02-09] MEDS: ATORVASTATIN CA 20 MG TABLET (FP) PO SCH (21:28)
[2017-02-09] MEDS: SODIUM CHLORIDE NASAL SPRAY 44 ML BOTTLE NS PRN (21:28)
[2017-02-09] MEDS: THIAMINE HCL 100 MG TABLET (FP) PO SCH (21:29)
[2017-02-09] MEDS: MIRTAZAPINE 15 MG TABLET (FP) PO SCH (21:29)
[2017-02-10] MEDS ORDERED: PT OWN MED DRAWER 7, Y5N ONE ×2 (05:52→20:17)
[2017-02-10] MEDS: LEVOTHYROXINE 112 MCG, LEVOTHYROXINE 25 MCG PO SCH (06:52)
[2017-02-10] MEDS: FLUoxetine HCL 20 MG CAPSULE (FP) PO SCH (10:12)
[2017-02-10] MEDS: ARIPiprazole 5 MG TABLET (FP) PO SCH (10:12)
[2017-02-10] MEDS: PRENATAL VITAMINS W/ FOLIC ACID TABLET (FP) PO SCH (10:12)
[2017-02-10] MEDS: hydrOXYzine PAMOATE 50 MG CAPSULE (FP) PO PRN (16:32)
[2017-02-10] MEDS: MIRTAZAPINE 15 MG TABLET (FP) PO SCH (21:25)
[2017-02-10] MEDS: THIAMINE HCL 100 MG TABLET (FP) PO SCH (21:25)
[2017-02-10] MEDS: ATORVASTATIN CA 20 MG TABLET (FP) PO SCH (21:25)
[2017-02-11] MEDS ORDERED: PT OWN MED DRAWER 7, Y5N ONE (04:01)
[2017-02-11] MEDS: LEVOTHYROXINE 112 MCG, LEVOTHYROXINE 25 MCG PO SCH (06:30)
[2017-02-11] MEDS: PRENATAL VITAMINS W/ FOLIC ACID TABLET (FP) PO SCH (10:04)
[2017-02-11] MEDS: ARIPiprazole 5 MG TABLET (FP) PO SCH (10:04)
[2017-02-11] MEDS: FLUoxetine HCL 20 MG CAPSULE (FP) PO SCH (10:05)
[2017-02-11] MEDS: hydrOXYzine PAMOATE 50 MG CAPSULE (FP) PO PRN (10:28)
[2017-02-11] MEDS: THIAMINE HCL 100 MG TABLET (FP) PO SCH (21:30)
[2017-02-11] MEDS: diphenhydrAMINE HCL 50 MG CAPSULE PO PRN (21:30)
[2017-02-11] MEDS: MIRTAZAPINE 15 MG TABLET (FP) PO SCH (21:30)
[2017-02-11] MEDS: ATORVASTATIN CA 20 MG TABLET (FP) PO SCH (21:30)
[2017-02-12] MEDS ORDERED: PT OWN MED DRAWER 7, Y5N ONE ×2 (03:12→20:12)
[2017-02-12] MEDS: LEVOTHYROXINE 112 MCG, LEVOTHYROXINE 25 MCG PO SCH (06:24)
[2017-02-12] MEDS: PRENATAL VITAMINS W/ FOLIC ACID TABLET (FP) PO SCH (09:55)
[2017-02-12] MEDS: FLUoxetine HCL 20 MG CAPSULE (FP) PO SCH (09:55)
[2017-02-12] MEDS: ARIPiprazole 5 MG TABLET (FP) PO SCH (09:55)
[2017-02-12] MEDS: hydrOXYzine PAMOATE 50 MG CAPSULE (FP) PO PRN (18:18)
[2017-02-12] MEDS: MIRTAZAPINE 15 MG TABLET (FP) PO SCH (21:37)
[2017-02-12] MEDS: SODIUM CHLORIDE NASAL SPRAY 44 ML BOTTLE NS PRN (21:37)
[2017-02-12] MEDS: ATORVASTATIN CA 20 MG TABLET (FP) PO SCH (21:37)
[2017-02-12] MEDS: THIAMINE HCL 100 MG TABLET (FP) PO SCH (21:37)
[2017-02-13] MEDS: LEVOTHYROXINE 112 MCG, LEVOTHYROXINE 25 MCG PO SCH (06:31)
[2017-02-13] MEDS: P-EPHED 60MG/TRIPROLIDI 2.5MG TABLET PO PRN (07:43)
[2017-02-13] MEDS: FLUoxetine HCL 20 MG CAPSULE (FP) PO SCH (10:02)
[2017-02-13] MEDS: ARIPiprazole 5 MG TABLET (FP) PO SCH (10:02)
[2017-02-13] MEDS: PRENATAL VITAMINS W/ FOLIC ACID TABLET (FP) PO SCH (10:03)
[2017-02-13] MEDS: hydrOXYzine PAMOATE 50 MG CAPSULE (FP) PO PRN ×2 (10:04→17:23)
[2017-02-13] MEDS: THIAMINE HCL 100 MG TABLET (FP) PO SCH (21:36)
[2017-02-13] MEDS: MIRTAZAPINE 15 MG TABLET (FP) PO SCH (21:36)
[2017-02-13] MEDS: ATORVASTATIN CA 20 MG TABLET (FP) PO SCH (21:36)
[2017-02-14] MEDS: LEVOTHYROXINE 112 MCG, LEVOTHYROXINE 25 MCG PO SCH (06:22)
[2017-02-14] MEDS: P-EPHED 60MG/TRIPROLIDI 2.5MG TABLET PO PRN (06:23)
[2017-02-14] MEDS: FLUoxetine HCL 20 MG CAPSULE (FP) PO SCH (10:19)
[2017-02-14] MEDS: PRENATAL VITAMINS W/ FOLIC ACID TABLET (FP) PO SCH (10:19)
[2017-02-14] MEDS: ARIPiprazole 5 MG TABLET (FP) PO SCH (10:19)
[2017-02-14] MEDS: hydrOXYzine PAMOATE 50 MG CAPSULE (FP) PO PRN (17:06)
[2017-02-14] MEDS: diphenhydrAMINE HCL 50 MG CAPSULE PO PRN (21:38)
[2017-02-14] MEDS: ATORVASTATIN CA 20 MG TABLET (FP) PO SCH (21:38)
[2017-02-14] MEDS: MIRTAZAPINE 15 MG TABLET (FP) PO SCH (21:38)
[2017-02-14] MEDS: THIAMINE HCL 100 MG TABLET (FP) PO SCH (21:38)
[2017-02-15] MEDS ORDERED: PT OWN MED DRAWER 7, Y5N ONE (06:00)
[2017-02-15] MEDS: P-EPHED 60MG/TRIPROLIDI 2.5MG TABLET PO PRN (06:16)
[2017-02-15] MEDS: LEVOTHYROXINE 112 MCG, LEVOTHYROXINE 25 MCG PO SCH (06:16)
[2017-02-15 07:35] VITALS: BP 147/84; PULSE 67; TEMP 97.4
[2017-02-15] MEDS: PRENATAL VITAMINS W/ FOLIC ACID TABLET (FP) PO SCH (09:05)
[2017-02-15] MEDS: FLUoxetine HCL 20 MG CAPSULE (FP) PO SCH (09:05)
[2017-02-15] MEDS: ARIPiprazole 5 MG TABLET (FP) PO SCH (09:05)
[2017-02-15] MEDS: SODIUM CHLORIDE NASAL SPRAY 44 ML BOTTLE NS PRN (09:06)
--- NOTE | 2017-02-15 09:09 | PN ---
Psychiatric Progress Note Vital Signs: Vital Signs Period Temp Pulse Resp BP Sys/Chappell Pulse Ox Last 24 Hr 97.4 F 67 18-18 147/84 Date of Session: 02/15/17 Chief Complaint:: Discharge visit HPI: Patient addressed Alcohol dependence comorbid with Major Depressive Disorder. ROS: Significant for Hypothyroidism,Hyperlipidemia. Current Medications: Active Medications Generic Name Dose Route Start Last Admin Trade Name Freq PRN Reason Stop Dose Admin Acetaminophen 650 mg 02/01/17 13:57 02/11/17 15:58 Tylenol - PO 650 mg Q4H PRN Administration FEVER OR PAIN Al Hydroxide/Mg Hydroxide 30 ml 02/01/17 13:57 Mylanta Oral Suspension - PO Q6H PRN DYSPEPSIA Aripiprazole 5 mg 02/08/17 10:30 02/15/17 09:05 Abilify PO 5 mg DAILY CURT Administration Atorvastatin Calcium 20 mg 02/01/17 22:00 02/14/17 21:38 Lipitor - PO 20 mg HS CURT Administration Colloidal Oatmeal 1 applic 02/08/17 12:23 02/08/17 13:35 Aveeno Soap - TP 1 bar DAILY PRN Administration HYGEINE Diphenhydramine HCl 50 mg 02/01/17 13:57 02/14/17 21:38 Benadryl - PO 50 mg HSMR1 PRN Administration FOR ITCHING Eucalyptus/Menthol/Phenol/Sorbitol 1 each 02/01/17 13:57 Cepastat Lozenge - MM Q4H PRN SORE THROAT Fluoxetine HCl 60 mg 02/08/17 10:30 02/15/17 09:05 Prozac - PO 60 mg DAILY CURT Administration Guaifenesin 10 ml 02/01/17 13:57 Robitussin Dm - PO Q6H PRN COUGH Hydroxyzine Pamoate 50 mg 02/01/17 13:57 02/14/17 17:06 Vistaril - PO 50 mg Q4H PRN Administration AGITATION Ibuprofen 400 mg 02/01/17 13:57 Motrin - PO Q6H PRN PAIN Levothyroxine Sodium 112 mcg/ 137 mcg 02/02/17 07:00 02/15/17 06:16 Levothyroxine Sodium 25 mcg PO 137 mcg DAILY@0700 CURT Administration Loperamide HCl 4 mg 02/01/17 13:57 Imodium - PO Q6H PRN DIARRHEA Magnesium Hydroxide 30 ml 02/01/17 13:57 Milk Of Magnesia - PO DAILY PRN CONSTIPATION Mirtazapine 45 mg 02/01/17 22:00 02/14/17 21:38 Remeron - PO 45 mg HS CURT Administration Multivit/Folic Acid/Iron 1 tab 02/02/17 10:00 02/15/17 09:05 Vitamins (Sjr) - PO 1 tab DAILY CURT Administration Pseudoephedrine/Triprolidine 1 combo 02/01/17 13:57 02/15/17 06:16 Actifed - PO 1 combo TID PRN Administration NASAL CONGESTION Sodium Chloride 2 spray 02/02/17 21:34 02/15/17 09:06 [place] Nasal [place] - NS 2 sprays TID PRN Administration NASAL CONGESTION Thiamine HCl 100 mg 02/01/17 22:00 02/14/17 21:38 Vitamin B1 - PO 100 mg HS CURT Administration Current Side Effect: No Lab tests ordered: No Lab tests reviewed: Yes Provider note:: Patient completed this program today.She has met her treatment goals and will continue to address her issues on outpatient basis at [facility].Patient continues to find that Remeron 45 mg po hs, Prozac 60 mg po daily and Abilify 5 mg po daily help to reduce her depressed mood,anxiety,mood instability.Therapy provided focusing on relapse prevention.Emotional support provided. Patient is stable for discharge today. Total face to face time:: 30 Mental Status Exam - Mental Status Exam Alert and Oriented to: Time, Place, Person Cognitive Function: Grossly Intact Patient Appearance: Well Groomed Mood: Hopeful, Euthymic Affect: Appropriate, Mood Congruent Patient Behavior: Cooperative Speech Pattern: Clear Voice Loudness: Normal Thought Process: Goal Oriented Thought Disorder: Not Present Hallucinations: Denies Suicidal Ideation: Denies Homicidal Ideation: Denies Insight/Judgement: Fair Sleep: Fair Appetite: Fair Muscle strength/Tone: Normal Gait/Station: Normal Psychiatric Treatment Plan - Problem List (1) Nicotine dependence Qualifiers: Qualified Code(s): F17.213 - Nicotine dependence, cigarettes, with withdrawal (4) Hypothyroidism Qualifiers: Qualified Code(s): E03.9 - Hypothyroidism, unspecified
== END 2017-02-15 09:30 | disposition home or self-care (01) | DRG 895 ==
LOC: YASAS 12:33 → Y3W 12:34 → Y3E 02-05 12:29
PROVIDERS: ADMIT Psychiatry & Neurology Psychiatry; ATTEND Psychiatry & Neurology Psychiatry
PROC: HZ42ZZZ Group Counseling for Substance Abuse Treatment, Cognitive-Behavioral (ICD-10-PCS; principal; 2017-02-15)
DX: F10.20 Alcohol dependence, uncomplicated (principal); F33.1 Major depressive disorder, recurrent, moderate; F17.213 Nicotine dependence, cigarettes, with withdrawal; E03.9 Hypothyroidism, unspecified; E78.00 Pure hypercholesterolemia, unspecified

== ENCOUNTER 2020-09-01 11:24 | Inpatient (IN) | payer MEDICARE, OTHER ==
--- NOTE | 2020-09-01 11:39 | BHS.RME ---
Substance Use & Tx History - Substance Use History Alcohol Substance amount: 2 pints rum Frequency of use: Daily Substance route: Oral Date of Last Use: 09/01/20 ( started age 27) Vaping/Electronic Cigaret Substance amount: 1 cartridge Frequency of use: Daily Substance route: Vaping Date of Last Use: 09/01/20 (started age 66) - Last Treatment Date of last treatment: 2016 Treatment type: Substance Use Disorder (DON[facility]) Where was last treatment: Detox Physical/Psych/Mental Status - Behavior General Behavior: Increased activity (restlessness, agitation) Eye Contact: Normal - Cooperativeness Cooperativeness: Cooperative - Thinking Thought Processes: Tight, Logical, Goal Directed Thought content: Future oriented - Physical Health Problems Is patient presently having any pain?: No Does patient presently have any injuries (include location): No Does patient currently have a fever: No Is patient : No CIWA Nausea/Vomitin Muscle Tremors: 3 Anxiety: 3 Agitation: 1-Slight > Activity Paroxysmal Sweats: 5 Orientation: 0-Oriented Tacttile Disturbances: 0-None Auditory Disturbances: 0-None Visual Disturbances: 0-None Headache: 0-None Present (not yet in full withdrawals due to drinking at 7AM today.) CIWA-Ar Total Score: 14
--- OUTSIDE RECORDS SUMMARY | 2020-09-01 11:47 | XMS ---
:1950 Author Organization [facility] Care Team Providers Name Role Phone Veronica, Jus Unavailable Unavailable Issack, Jus Unavailable Unavailable Issack, Jus Unavailable Unavailable OUTREACH, SAMY Unavailable Unavailable Rosina Caruso ([facility] [place] Unavailable MARCHWINSKI Unavailable Unavailable Abhyankar Unavailable Unavailable POP Unavailable Unavailable Covino Unavailable Jyung Unavailable Unavailable Jyung Unavailable Unavailable Re-disclosure Warning The records that you are about to access may contain information from federally- assisted alcohol or drug abuse programs. If such information is present, then the following federally mandated warning applies: This information has been disclosed to you from records protected by federal confidentiality rules (42 CFR part 2). The federal rules prohibit you from making any further disclosure of this information unless further disclosure is expressly permitted by the written consent of the person to whom it pertains or as otherwise permitted by 42 CFR part 2. A general authorization for the release of medical or other information is NOT sufficient for this purpose. The Federal rules restrict any use of the information to criminally investigate or prosecute any alcohol or drug abuse patient.The records that you are about to access may contain highly sensitive health information, the redisclosure of which is protected by Article 27-F of the [facility] Public Health law. If you continue you may haveaccess to information: Regarding HIV / AIDS; Provided by facilities licensed or operated by the [facility] Office of Mental Health; or Provided by the [facility] Office for People With Developmental Disabilities. If such information is present, then the following [facility] mandated warning applies: This information has been disclosed to you from confidential records which are protected by state law. State law prohibits you from making any further disclosure of this information without the specific written consent of the person to whom it pertains, or as otherwise permitted by law. Any unauthorized further disclosure in violation of state law may result in a fine or long term sentence or both. A general authorization for the release of medical or other information is NOT sufficient authorization for further disclosure. Allergies and Adverse Reactions Type Description Substance Reaction Status Data Source(s ) SYSTEMIC NO KNOWN ALLERGIES NO KNOWN ALLERGIES [facility] Encounters Encounter Providers Location Date Indications Data Source(s ) Outpatient Attender: Jagruti 08/12/2020 The [facility] 05:05:[address] [facility] EDT Patient admitted. Outpatient Attender: Jagruti 08/12/2020 04:00:51 PM The [facility] Patient admitted. Outpatient Attender: Jagruti 08/05/2020 09:44:08 AM The [facility] Patient admitted. Outpatient Attender: Jagruti 07/25/2020 01:20:24 PM The [facility] - 07/25/2020 [facility] 02:25:52 PM EDT Patient admitted. Outpatient Attender: Jagruti 07/05/2020 09:29:53 AM The [facility] Patient admitted. Outpatient Attender: KENIA 06/03/2020 11:34:28 AM The [facility] Patient admitted. Outpatient Attender: Jagruti 05/24/2020 01:54:32 PM The [facility] Patient admitted. Outpatient Attender: Eddie Hopper 05/04/2020 02:33:24 PM The [facility] - 05/04/2020 [facility] 03:41:51 PM EDT Patient admitted. Outpatient Attender: Jagruti 05/02/2020 10:58:44 AM The [facility] Patient admitted. Outpatient Attender: Jus Martin 04/20/2020 12:39:32 PM The [facility] Patient admitted. Outpatient Attender: IVORY 04/15/2020 09:59:[address] [facility] [place] Outpatient Attender: IVORY 04/13/2020 06:12:[address] [facility] ED Family Health Patient admitted. Outpatient Attender: KENIA 04/07/2020 09:59:13 AM The [facility] ED Family [facility] Patient admitted. Outpatient Attender: SAMY 03/28/2020 03:27:58 PM The [place] [facility] EDT Family Health Patient admitted. Outpatient Attender: Sendy 03/17/2020 09:30:51 AM The [facility] - 03/17/2020 Family H ealth 06:30:27 PM EDT Patient admitted. Outpatient Attender: Sendy 03/15/2020 11:07:37 AM The [facility] - 03/16/2020 Family [facility] e[facility] 01:21:54 PM EDT Patient admitted. Outpatient Attender: Sendy 03/14/2020 01:23:57 PM The [facility] - 03/19/2020 Family H ealth 12:30:17 PM EDT Patient admitted. Outpatient Attender: Jagruti 02/17/2020 12:00:00 AM The [place] [facility] Family Health Patient admitted. Outpatient Attender: SAMY 12/31/2019 11:27:11 AM The [place] For [facility] EST Family Health Patient admitted. Outpatient Attender: SAMY 12/29/2019 09:49:50 AM The [place] For [facility] EST Family Health Patient admitted. Outpatient Attender: Rosina Caruso 11/24/2019 08:49:18 AM The [place] For EST Family Health Patient admitted. Outpatient Attender: SAMY 11/20/2019 12:22:27 PM The [place] For [facility] EST Family Health Patient admitted. Outpatient Attender: Rosina Caruso 11/16/2019 02:56:30 PM The [place] For EST Family Health Patient admitted. Outpatient Attender: Jagruti 11/16/2019 10:44:07 AM The [place] [facility] EST Family Health Patient admitted. Outpatient Attender: SAMY 11/13/2019 12:23:22 PM The [place] For [facility]RE[facility] EST Family Health Patient admitted. Outpatient Attender: SAMY 11/03/2019 03:23:52 PM The [place] For [facility] EST Family Health Patient admitted. Outpatient Attender: Jagruti 09/25/2019 12:31:57 PM The [place] [facility] Family Health Patient admitted. Outpatient Attender: Jagruti 07/17/2019 08:39:35 AM The [facility] EDT - 07/17/2019 Family H ealth 12:39:59 PM EDT Patient admitted. Outpatient Attender: Jagruti 07/16/2019 09:37:50 AM The [facility] EDT Family Health Patient admitted. Immunizations Vaccine Date Status Description Data Source(s) Quadrivalent 07/25/2020 completed Quadrivalent 07/25/2020 Th e [place] Influenza 12:00:00 AM Influenza For Fami ly Vaccine, EDT Vaccine, Health Adjuvanted, Adjuvanted, Preservative Preservative Free Free influenza, 09/02/2019 completed Seasonal 09/02/2019 The Ins titute trivalent, 12:00:00 AM Trivalent For Fam renetta adjuvanted EDT Influenza Health Vaccine, Adjuvanted, Preservative Free Tdap 07/17/2019 completed Tdap 07/17/2019 The Inst itute 12:00:00 AM (Deferred: Out For Family EDT of Stock) Health Deferred: Out of Stock Medications Medication Brand Start Product Dose Route Administrative Pharmacy [facility] Indications Reaction Description Data Name Date Form Instructions Instructions Source(s) Levothyroxi levoth Oral active Other Take O NE The ne Sodium yroxin 2020 ug specified tablet ( 150 [place] 0.15 MG e 150 12:00: hypothyroidi mcg to lainey) For Family Oral Tablet MCG 00 AM sm by mouth Hea lth levothyroxi Oral EDT daily ne 150 MCG tablet Oral tablet Other specified hypothyroidism atorvastatin Atorvastatin 07/25/2020 40 Oral active Other Take The 40 MG Oral Calcium 40 MG 12:00:00 AM mg hyperlip idemia ONE [place] Tablet Oral Tab EDT tablet For Fam renetta Atorvastatin (40 mg Healt h Calcium 40 MG total) Oral Tab by mouth daily Other hyperlipidemia Levothyroxine Levothyroxine 07/25/2020 137 Oral abort ed Hypothyroidism, Take The Sodium 0.137 Sodium 137 MCG 12:00:00 AM ug unspe cified type ONE [place] MG Oral Tablet Oral Tab EDT tablet For Family Levothyroxine (137 Health Sodium 137 MCG mcg Oral Tab total) by mouth daily Hypothyroidism, unspecified type Amlodipine 5 amLODIPine 5 07/25/2020 5 Oral active Essent ial Take The MG Oral MG Oral 12:00:00 AM mg hypertension ONE [place] Tablet tablet EDT tablet For Famil y amLODIPine 5 (5 mg Health MG Oral total) tablet by mouth daily Essential hypertension Mirtazapine Mirtazapine 07/25/2020 45 Oral active Severe Take The 45 MG Oral 45 MG Oral 12:00:00 AM mg episode of ONE [place] Tablet Tab EDT recurrent tablet For Julia valente major (45 mg Health depressive total) disorder, by without mouth psychotic daily features (HCC) Severe episode of recurrent major depres sive disorder, without psychotic features (HCC) Potassium Potassium 07/05/2020 20 Oral active Hypokalemia Take The Chloride 20 Chloride ER 12:00:00 AM meq ONE [place] MEQ 20 MEQ Oral EDT tablet For Fa ambrosio Extended Tab CR (20 mEq Health Release total) Oral Tablet by Potassium mouth Chloride ER daily 20 MEQ Oral Tab CR Hypokalemia Amlodipine 5 amLODIPine 5 05/24/2020 5 Oral aborted Essen tial Take The MG Oral MG Oral 12:00:00 AM mg hypertension ONE [place] Tablet tablet EDT tablet For Famil y amLODIPine 5 (5 mg Health MG Oral total) tablet by mouth daily Essential hypertension Take ONE tablet (5 mg total) by mouth da renetta Levothyroxine Levothyroxine 05/24/2020 137 Oral abort ed Hypothyroidism, Take The Sodium 0.137 Sodium 137 MCG 12:00:00 AM ug unspe cified type ONE [place] MG Oral Tablet Oral Tab EDT tablet For Family Levothyroxine (137 Health Sodium 137 MCG mcg Oral Tab total) by mouth daily Hypothyroidism, unspecified type Take ONE tablet (137 mcg total) by mouth daily 24 HR Budesonide 9 05/16/2020 active The Budesonide 9 MG Oral 12:00:00 AM [place] MG Extended TABLET SR 24 EDT For Family Release Oral HR Health Tablet Budesonide 9 MG Oral TABLET SR 24 HR Sertraline Sertraline 05/03/2020 25 Oral aborted Recurrent Take The 25 MG Oral HCl (ZOLOFT) 12:00:00 AM mg major ONE [place] Tablet 25 MG Oral EDT depressive tablet For Family Sertraline Tab disorder, (25 mg He alth HCl (ZOLOFT) in partial total) 25 MG Oral remission by Tab (HCC) mouth daily Recurrent major depressive disorder, in partial remission (HCC) Take ONE tablet (25 mg total) by mouth d aily Levothyroxine Levothyroxine 05/03/2020 112 Oral compl eted Hypothyroidism, Take The Sodium 0.112 Sodium 112 MCG 12:00:00 AM ug unspe cified type ONE [place] MG Oral Tablet Oral Tab EDT tablet For Family Levothyroxine (112 Health Sodium 112 MCG mcg Oral Tab total) by mouth daily Hypothyroidism, unspecified type Take ONE tablet (112 mcg total) by mouth daily Potassium Potassium 05/03/2020 20 Oral aborted Hypokalemia Take The Chloride 20 Chloride ER 12:00:00 AM meq ONE [place] MEQ 20 MEQ Oral EDT tablet For Fa ambrosio Extended Tab CR (20 mEq Health Release total) Oral Tablet by Potassium mouth Chloride ER daily 20 MEQ Oral Tab CR Hypokalemia Take ONE tablet (20 mEq total) by mouth daily Loperamide loperamide 2 04/27/2020 2 mg completed 2 mg The Hydrochloride 2 MG Oral 12:00:00 AM [place] MG Oral Tablet tablet EDT For Family loperamide 2 MG Heal th Oral tablet 2 mg atorvastatin Atorvastatin 02/17/2020 40 Oral aborted Other Take The 40 MG Oral Calcium 40 MG 12:00:00 AM mg hyperlip idemia ONE [place] Tablet Oral Tab EDT tablet For Fam renetta Atorvastatin (40 mg Healt h Calcium 40 MG total) Oral Tab by mouth daily Other hyperlipidemia Take ONE tablet (40 mg total) by mouth d aily Amlodipine amLODIPine 02/17/2020 5 Oral completed Essenti al Take The 5 MG Oral 5 MG Oral 12:00:00 AM mg hypertension ONE [place] Tablet tablet EDT tablet For Famil y amLODIPine (5 mg Health 5 MG Oral total) tablet by mouth daily Essential hypertension Take ONE tablet (5 mg total) by mouth da renetta Levothyroxine Levothyroxine 02/17/2020 137 Oral compl eted Other specified Take The Sodium 0.137 Sodium 137 MCG 12:00:00 AM ug hypot hyroidism ONE [place] MG Oral Tablet Oral Tab EDT tablet For Family Levothyroxine (137 Health Sodium 137 MCG mcg Oral Tab total) by mouth daily Other specified hypothyroidism Take ONE tablet (137 mcg total) by mouth daily Mirtazapine Mirtazapine 02/17/2020 45 Oral aborted Severe Take The 45 MG Oral 45 MG Oral 12:00:00 AM mg episode of ONE [place] Tablet Tab EDT recurrent tablet For Julia valente major (45 mg Health depressive total) disorder, by without mouth psychotic daily features (HCC) Severe episode of recurrent major depres sive disorder, without psychotic features (HCC) Take ONE tablet (45 mg total) by mouth d safia Blood [id number] 02/17/2020 active Essential Dispense The Pressure 12:00:00 AM hypertension e lectronic [place] Monitor EDT Blood For Family Does not Pressure Health apply Kit monitor with upper arm cuff, use daily as directed. Essential hypertension Dispense electronic Blood Pressure monit or with upper arm cuff, use daily as directed. duloxetine DULoxetine 12/23/2019 aborted The 60 MG HCl 60 MG 12:00:00 AM In stitute Delayed Oral CAPSULE EST For Family Release Oral ENTERIC Heal th Capsule COATED DULoxetine PARTICLES HCl 60 MG Oral CAPSULE ENTERIC COATED PARTICLES Mirtazapine Mirtazapine 11/16/2019 45 Oral completed Sever e Take The 45 MG Oral 45 MG Oral 12:00:00 AM mg episode of ONE [place] Tablet Tab EST recurrent tablet For Fa ambrosio major (45 mg Health depressive total) disorder, by without mouth psychotic daily features (HCC) Severe episode of recurrent major depres sive disorder, without psychotic features (HCC) Take ONE tablet (45 mg total) by mouth leonardo baig Levothyroxine Levothyroxine 11/16/2019 137 Oral compl eted Other specified Take The Sodium 0.137 Sodium 137 MCG 12:00:00 AM ug hypot hyroidism ONE [place] MG Oral Tablet Oral Tab EST tablet For Family Levothyroxine (137 Health Sodium 137 MCG mcg Oral Tab total) by mouth daily Other specified hypothyroidism Take ONE tablet (137 mcg total) by mouth daily Fluoxetine 40 FLUoxetine HCl 09/25/2019 completed TK ONE The MG Oral 40 MG Oral Cap 12:00:00 AM C PO [place] Capsule EDT QD For Family FLUoxetine HCl Healt h 40 MG Oral Cap TK ONE C PO QD Mirtazapine Mirtazapine 09/25/2019 45 Oral completed Sever e Take The 45 MG Oral 45 MG Oral 12:00:00 AM mg episode of ONE [place] Tablet Tab EDT recurrent tablet For Fa ambrosio major (45 mg Health depressive total) disorder, by without mouth psychotic daily features (HCC) Severe episode of recurrent major depres sive disorder, without psychotic features (HCC) Take ONE tablet (45 mg total) by mouth d safia Naltrexone Naltrexone 07/17/2019 50 Oral active Alcohol Take The hydrochloride HCl 50 MG 12:00:00 AM mg abuse ONE [place] 50 MG Oral Oral Tab EDT tablet For Family Tablet (50 mg Health Naltrexone HCl total) 50 MG Oral Tab by mouth daily for 14 days Alcohol abuse Folic folic 07/17/2019 1 mg Oral completed Alcohol Take ONE The Acid 1 MG acid 1 MG 12:00:00 AM abuse ta blet [place] Oral Oral EDT (1 mg For Family Tablet tablet total) Health folic by mouth acid 1 MG daily Oral tablet Alcohol abuse Take ONE tablet (1 mg total) by mouth da renetta Thiamine thiamine 07/17/2019 100 Oral completed Alcohol Take The 100 MG 100 MG 12:00:00 AM mg abuse ONE Ins titute Oral Oral EDT tablet For Family Tablet tablet (100 mg Health thiamine total) 100 MG by Oral mouth tablet daily Alcohol abuse Take ONE tablet (100 mg total) by mouth daily Levothyroxine Levothyroxine 03/27/2019 137 Oral compl eted Other specified Take The Sodium 0.137 Sodium 137 MCG 12:00:00 AM ug hypot hyroidism ONE [place] MG Oral Tablet Oral Tab EDT tablet For Family Levothyroxine (137 Health Sodium 137 MCG mcg Oral Tab total) by mouth daily Other specified hypothyroidism Take ONE tablet (137 mcg total) by mouth daily atorvastatin Atorvastatin 03/27/2019 40 Oral completed Oth er Take The 40 MG Oral Calcium 40 MG 12:00:00 AM mg hyperlip idemia ONE [place] Tablet Oral Tab EDT tablet For Fam renetta Atorvastatin (40 mg Healt h Calcium 40 MG total) Oral Tab by mouth daily Other hyperlipidemia Take ONE tablet (40 mg total) by mouth d aily Folic folic 03/27/2019 1 mg Oral aborted Alcohol Take O NE The Acid 1 MG acid 1 MG 12:00:00 AM abuse ta blet [place] Oral Oral EDT (1 mg For Family Tablet tablet total) Health folic by mouth acid 1 MG daily Oral tablet Alcohol abuse Thiamine thiamine 03/27/2019 100 Oral aborted Alcohol Take ONE The 100 MG 100 MG 12:00:00 AM mg abuse tablet I nstitute Oral Oral EDT (100 mg For Family Tablet tablet total) Health thiamine by mouth 100 MG daily Oral tablet Alcohol abuse Mirtazapine Mirtazapine 03/27/2019 45 Oral completed Sever e Take The 45 MG Oral 45 MG Oral 12:00:00 AM mg episode of ONE [place] Tablet Tab EDT recurrent tablet For Fa ambrosio major (45 mg Health depressive total) disorder, by without mouth psychotic daily features (HCC) Severe episode of recurrent major depres sive disorder, without psychotic features (HCC) Take ONE tablet (45 mg total) by mouth d aily duloxetine DULoxetine 03/27/2019 60 Oral completed Severe Take ONE The 60 MG HCl 60 MG 12:00:00 AM mg episode of c apsule [place] Delayed Oral EDT recurrent (60 mg For F amily Release Oral CAPSULE major total) H ealth Capsule ENTERIC depressive by mouth DULoxetine COATED disorder, daily HCl 60 MG PARTICLES without Oral CAPSULE psychotic ENTERIC features COATED (HCC) PARTICLES Severe episode of recurrent major depres sive disorder, without psychotic features (HCC) Take ONE capsule (60 mg total) by mouth daily aripiprazole Aripiprazole 02/19/2019 10 Oral completed Take The 10 MG Oral (ABILIFY) 10 12:00:00 AM mg 10 mg [place] Tablet MG Oral Tab EDT by For Julia valente Aripiprazole mouth Health (ABILIFY) 10 MG Oral Tab Take 10 mg by mouth Insurance Providers Payer name Policy type Policy ID Covered Covered constitution party's Policy P migdalia / Coverage constitution party ID relationship to Jaffe Inf ormation type jaffe ADRIAN Medicare/Med [id number] CARE [facility] Managed Care PENDING SALE TO [facility] [id number] Self [id number] CARE PENDING SALE TO [facility] [id number] Self [id number] CARE PENDING SALE TO [facility] Medicare/Med 2784 [id number] CARE icaid Managed Care ADRIAN [id number] Self [id number] CARE PENDING SALE TO [facility] Medicare/Med 2784 [id number] CARE [facility] Managed Care Problems, Conditions, and Diagnoses Code Display Name Description Problem Type Effective Data Dates Source(s) K52.832 Lymphocytic colitis Lymphocytic colitis [id number] The 12:00:00 AM [place] EDT For [facility] [email or web address] Lab Results Lab Results Diagnosis 08/12/2020 The 05:05:50 PM [place] EDT For [facility] [employer] Z23 Encounter for Encounter for Diagnosis 07/25/2020 The immunization immunization 01:20:24 PM [place] EDT For [facility] [employer] I10 Essential (primary) Essential (primary) Diagnosis 020 The hypertension hypertension 01:20:24 PM [place] EDT For [facility] F33.2 Major depressive Major depressive Diagnosis 07/25/2020 Th e disorder, recurrent disorder, recurrent 01:20:2 4 PM [place] severe without severe without EDT For Julia valente psychotic features psychotic features Health Well Exam Well Exam Diagnosis 07/25/2020 The 01:20:24 PM [place] EDT For [facility] Other Other Diagnosis 07/25/2020 The 01:20:24 PM [place] EDT For [facility] E87.6 Hypokalemia Hypokalemia Diagnosis 07/05/2020 The 09:29:53 AM [place] EDT For [facility] Outreach Outreach Diagnosis 06/03/2020 The 11:34:28 AM [place] EDT For [facility] K52.832 Lymphocytic colitis Lymphocytic colitis Diagnosis 020 The 02:28:42 PM [place] EDT For [facility] F32.9 Major depressive Major depressive Diagnosis 05/24/2020 Th e disorder, single disorder, single 01:54:32 PM I nstitute episode, unspecified episode, unspecified EDT For [facility] R19.7 Diarrhea, Diarrhea, Diagnosis 05/04/2020 The unspecified unspecified 02:33:24 PM [place] EDT For [facility] Z53.20 Procedure and Procedure and Diagnosis 05/04/2020 The treatment not treatment not 02:33:24 PM Institu te carried out because carried out because EDT For Family of patient's of patient s Health decision for decision for unspecified reasons unspecified reasons Z11.4 Encounter for Encounter for Diagnosis 05/04/2020 The screening for human screening for human 02:33:2 4 PM [place] immunodeficiency immunodeficiency EDT Fo r [facility] virus [HIV] virus (HIV) [facility] F33.41 Major depressive Major depressive Diagnosis 05/02/2020 Th e disorder, recurrent, disorder, recurrent, 10:58 :44 AM [place] in partial remission in partial remission EDT For [facility] Virtual Visit Virtual Visit Diagnosis 05/02/2020 The (Telephone Only) (Telephone Only) 10:58:44 AM I nstitute EDT For [facility] R11.15 Cyclical vomiting Cyclical vomiting Diagnosis 04/20/2020 The syndrome unrelated syndrome unrelated 12:39:32 PM [place] to migraine to migraine EDT For [facility] Case Closure Case Closure Diagnosis 04/15/2020 The 09:59:00 AM [place] EDT For [facility] Missed Appointment Missed Appointment Diagnosis 0 The 06:12:07 PM [place] EDT For [facility] R45.851 Suicidal ideations Suicidal ideations Diagnosis 0 The 09:30:51 AM [place] EDT For [facility] Z20.828 Contact with and Contact with and Diagnosis 03/15/2020 Th e (suspected) exposure (suspected) exposure 11:07 :37 AM [place] to other viral to other viral EDT For Julia valente communicable communicable Health diseases diseases R68.89 Other general Other general Diagnosis 03/14/2020 The symptoms and signs symptoms and signs 01:23:57 PM [place] EDT For [facility] Appointment Reminder Appointment Reminder Diagnosis 12/31 The Call Call 11:27:11 AM [place] EST [facility] Emergency Room Visit Emergency Room Visit Diagnosis 12/29 The Follow Up Follow Up 09:49:50 AM [place] EST [facility] Depression Depression Diagnosis 11/16/2019 The 02:56:[address] [facility] Z28.21 Immunization not Immunization not Diagnosis 11/16/2019 Th e carried out because carried out because 10:44:0 7 AM [place] of patient refusal of patient refusal EST [facility] Medication Request Medication Request Diagnosis 9 The 10:44:[address] [facility] Hospital Discharge Hospital Discharge Diagnosis 9 The Appointment Appointment 03:23:[address] [facility] Forms Forms Diagnosis 07/17/2019 The 08:39:35 AM [place] EDT For [facility] Call During Clinic Call During Clinic Diagnosis 9 The Hours Hours 09:37:50 AM [place] EDT For [facility] Surgeries/Procedures Procedure Description Date Indications Data Source(s) AIIV4 VACC AIIV4 VACC Routine 07/25/2020 Need for 07/25/2020 Nee d for The INACTIVATED INACTIVATED 2:45 PM EDT prophylactic 02:45:2 5 PM prophylactic [place] PRSRV FR PRSRV FR vaccination EDT vaccinatio n For Family 0.5ML DOS IM 0.5ML DOS IM and and Health USE USE inoculation inoculation against against influenza influenza Need for prophylactic vaccination and in oculation against influenza TSH, HIGH TSH, HIGH Routine 07/25/2020 Hypothyroidism, 0 Hypothyroidism, The SENSITIVITY SENSITIVITY 2:27 PM EDT unspecified type 02: 27:00 PM unspecified type [place] (SERUM) (SERUM) EDT For [facility] Hypothyroidism, unspecified type COMP COMP Routine 05/04/2020 Hypothyroidism, 05/04/2020 Hy pothyroidism, The METABOLIC METABOLIC 2:50 PM EDT unspecified type 02:50:0 0 PM unspecified type [place] PANEL PANEL EDT For [facility] Hypothyroidism, unspecified type TSH, HIGH TSH, HIGH Routine 05/04/2020 Hypothyroidism, 0 Hypothyroidism, The SENSITIVITY SENSITIVITY 2:50 PM EDT unspecified type 02: 50:00 PM unspecified type [place] (SERUM) (SERUM) EDT [facility] Hypothyroidism, unspecified type TDAP TDAP Routine 07/17/2019 Need for prophylactic 019 Need for prophylactic The VACCINE VACCINE 9:56 AM EDT vaccination with combined 01 :56:06 PM vaccination with combined [place] 7/> YR SQ IMM uekxjqnolw-nozzutt-ddfjiyeze EDT tehtvarewz-uijhawg-khhyafxcc For [facility] (DTP) vaccine (DTP) vacc ine Health Need for prophylactic vaccination with c ombined dwguyujacz-zqwhohd-htamtlyay (DTP) vaccine TSH, HIGH TSH, HIGH Routine 07/17/2019 Alcohol 07/17/2019 Alcoho l The SENSITIVITY SENSITIVITY 9:44 AM EDT abuse 01:44:00 PM abuse [place] (SERUM) (SERUM) EDT [facility] Alcohol abuse HGA1C (HGB HGA1C (HGB Routine 07/17/2019 Alcohol 07/17/2019 Alco hol The GLYCOSYLATED) GLYCOSYLATED) 9:44 AM EDT abuse 01:44:00 PM abuse [place] EDT [facility] Alcohol abuse LIPID LIPID Routine 07/17/2019 Alcohol 07/17/2019 Alcohol Th e PANEL PANEL 9:44 AM EDT abuse 01:44:00 PM abuse [place] EDT [facility] Alcohol abuse COMP COMP Routine 07/17/2019 Alcohol 07/17/2019 Alcohol Th e METABOLIC METABOLIC 9:44 AM EDT abuse 01:44:00 PM abus e [place] PANEL PANEL EDT [facility] Alcohol abuse Results ID Date Data Source [id number] 07/25/2020 02:46:50 PM EDT [facility] Reason for Visit and Comments: Other [0] - meds refills Well Exam [1110] Other [0] - no Er visitVitals (Last File d):BP 126/70 (Orthostatic Site : Arm - Right, Orthostatic Po- siti on : Sitting, Orthostatic Cuff Size : Adult) Pulse - 78 Temp 97. 4 F (36.3 C) (Temporal) Wt 194 lb (88 kg- ) SpO2 97% BMI 30.1 8 kg/x6UlkjmSheryl Torres MA 07/25/2020 2:25 PM SignedI have identified this patient to be Lavell Cruz, -1950.Chief ComplaintPatient presents with Other m eds refills Well Exam Other no Er visitVitals: 07/25/20 1328BP: 126/70Orth ostatic Site : Arm - RightOrthostatic Position : SittingOrthostatic Cuff Size : AdultPulse: 78Temp: 97.4 F (36.3 C)TempSrc: TemporalSpO2: 97%Weight: 194 lb (88 kg)Patient reports a pain score of "0-None" in her No pain location entered forpatient.Pharmacy VerifiedAllergies VerifiedER Visit Status= Marcus Yates Lalita, MD 07/25/2020 2:25 PM SignedLavell Cruz is a 69 year old femalePatient Active Problem ListDiagnosis Hyperlipidemia Hypothyroid Alcohol abu se Tobacco use disorder 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 Diarrhea is gone. Hasan appointment with GI next month, will tell him then.ROS: no fevers, chills, cp, n/v/d, sob, ab pain, urinary problems, headache,blurry vision, numbness/tingling, rashes, unintentional weight lossEXAM:BP 126/70 (Orthostatic Site : Arm - Right, Orthostatic Position : Si tting,Orthostatic Cuff Size : Adult) | Pulse 78 | Temp 97.4 F (36.3 C) (Temporal) | Wt 194 lb (88 kg) | SpO2 97% | BMI 30.18 kg/mThe patient appears well, in no a pparent distress. Alert and oriented timesthree, pleasant and cooperative. Vi lainey signs are as noted by the nurse.1. Other hyperlipidemia- Atorvastatin Calcium 40 MG Oral Tab; Take ONE tablet (40 mg total) by mouthdaily Dispense: 30 tablet; Refill: 32. Hypothyroidism, unspecified type- Levothyroxine Sodium 137 MCG Oral Tab; T jayne ONE tablet (137 mcg total) bymouth daily Dispense: 30 tablet; Refill: 2- TSH, HIG H SENSITIVITY (SERUM); Future3. Essential hypertension- amLODIPine 5 MG Oral table t; Take ONE tablet (5 mg total) by mouth dailyDispense: 30 tablet; Refill: 24. Se octaviano episode of recurrent major depressive disorder, without psychoticfeatures (HCC )- Mirtazapine 45 MG Oral Tab; Take ONE tablet (45 mg total) by mouth dailyDispe nse: 30 tablet; Refill: 25. Need for prophylactic vaccination and inoculation against influenza- FLUCELVAX, INFLUENZA, CCIIV4, PSRV FREE, 4YRS+, 0.5 ML, PREFIL LED SYRINGE;Yanira Ahmadi MD [facility]ITALtthugh [facility] Family PhysicianNorth Carolina Specialty HospitalJagruti Ahmadi MD 07/25/2020 2:39 PM SignedAddended by: JAGRUTI RAMOS on: 07/25/2020 02:39 PM Modules accepted: Celeste Enriquez M A 07/25/2020 2:41 PM [facility] 1 sst tubessent to [facility]. She tolerated the proc edure well and will return [facility] for results.Joel Odom Erika, MA 07/25/2020 2:41 PM SignedAddended by: CELESTE BECKER on: 07/25/2020 02:41 PM Modules accepted: Martha Sewell Alexander, LPN 07/25/2020 2:46 PM Sign Pratima have identified this patient to be Lavell Cruz, -1950.Chief ComplaintPatient presents with Other meds refills Well Exam Other no Er visitAf ter obtaining consent, and per orders of Dr. Ahmadi, injection of FluADgiven by Lucien Gunderson LPN. Patient instructed to remain in clinic for 25minutes afterward s, and to report any adverse reaction to me immediately.Allergies reviewedTolerated wellEducation materials given and discussed with patient.Edmundo Fannie Gunderson Alexander, LPN 07/25/2020 2:46 PM SignedAddended by: EDMUNDO GUNDERSON o n: 07/25/2020 02:46 PM Modules accepted: Orders, SmartSetPrimary Diagnosis:F33.2 Severe episode of recurrent major depressive disorder, wi thout psychotic features (HCC) Other Diagnoses:E78.49 Other hyperlipidemia E03.9 Hypothyroidism, unspecified type I10 Essential hypertension Z23 Need for prophylactic vaccinat ion and inoculationagainst influenza F33.2 Major depressive disor merritt, recurrent severe withoutpsychotic features (Active) Comment:Billing Diagnosis E78.49 Other hyperlipidemia (Active ) Comment:Billing Diagnosis E03.9 Hyp othyroidism, unspecified (Active) Comment:Billing Diagnosis I10 Essential (primary) hypertension (Active) Comment:Billing Diagnosis Z23 Encounter for immunization (Active) Comment:Billing DiagnosisPrescription s as of 07/25/2020 Disp Refills Start End * amLODIPine 5 MG Oral tablet 30 t* 2 07/25/2020 10/23/2020 Class: E Prescribing Ro [place]: Oral Sig: Take ONE tablet (5 mg total) by mouth daily * Atorvastatin Ca lcium 40 MG Oral Tab 30 t* 3 07/25/2020 08/24/2020 Class: E Prescri lupillo Route: Oral Sig: Take ONE tablet (40 mg total) by mouth daily Blood Pr essure Monitor Does not ap* 1 kit 0 02/17/2020 Class: E Prescribing Si g: Dispense electronic Blood Pressure monitor with upper arm cuff, use daily a s directed. Budesonide 9 MG Oral TABLET SR 24 * 05/16/2020 Cla ss: Historical Med Sig: FLUTICASONE PROPIONATE, NASAL, 50 * 1 Luis* 5 11/06/2017 Class: E Prescribing Route: Nasal Sig: TWO Act (100 mcg to lainey) into each nostril daily FLUTICASONE PROPIONATE, NASAL, 50 * 0 03/15/2017 Class: Historical Med Sig: instill 1 spray into each nostril twice a day * Levothyroxine Sodium 137 MCG Oral * 30 t* 2 07/25/2020 08/24/2020 Class: E Prescribing Route: Oral Sig: Take ONE tablet (137 mcg total) by mouth daily loperamide 2 MG Oral tablet 04/27/2020 020 Class: Historical Med Si mg * Mirtazapine 45 MG Oral Tab 30 t * 2 07/25/2020 Class: E Prescribing Route: Oral Sig: Take ONE tablet (45 mg total) by mouth daily Potassium Chloride ER 20 MEQ Oral * 30 t * 1 07/05/2020 08/04/2020 Class: E Prescribing Route: Oral Sig: Titus e ONE tablet (20 mEq total) by mouth dailyAllergies As of Date: 07/25/2020(No Known Allergies)Date Reviewed: 07/25/2020Reviewed by: Sheryl Torres MA - ReviewedLevel of Service:[id number] OFFIC/OUTPT VISIT E&M EST LOW-MOD SEVER* Historical Information ----- ------Past Medical and Surgical HistoryM edical And Surgical History Item DateHyperlipidemiaDepressionHypothyroidi smNo family history on fileSocial History Marital Status: Single Sp ouse: Years of Education: # children:Social History Narrative (no ne)Social History Topics Tobacco Use: Yes Cigarettes (Packs/Day): .5 Sta rt Date: Comment: 6 a day Alcohol Use: No Drug Use: No Sexually Active: Never Immunizations Administered Bicillin LA 05/02/2017 Influenza, Injectable,(cciiv4), Qu* 11/13/2017 P neumococcal polysaccharide vaccin* 03/27/2019 Quadrivalent Influenza Vacci ne, Ad* 07/25/2020 Seasonal Trivalent Influenza Vacci* 09/02/2019 Tdap defer-07/17/2019 Name Value Range Interpretation Code Description Data Megan rce(s) Supporting Document(s ) ID Date Data Source [id number] 07/26/2020 12:09:00 PM EDT The [place] [facility] Name Value Range Interpretation Code Description Data Megan rce(s) Supporting Document(s ) TSH 13.610 0.234-4.02 Above high normal The Institu te uIU/mL 0 [facility] ID Date Data Source [id number] 05/24/2020 06:58:39 PM EDT The [place] [facility] Reason for Visit and Comments: Well E xam [1110] Follow-up for: [92] - [facility] visit , lab resultsVitals (Last Filed):BP 123/65 Pu lse 79 Temp 97.5 F (36.4 C) (Oral) Wt- 188 lb (85.3 kg) SpO2 98% BMI 29 .25 kg/p3VtfhsyCeleste Becker MA 05/24/2020 6:58 PM SignedI have identified this patient to be Fouzia Cruz, -1950.Chief ComplaintPatient presents with Well Exam Follow-[facility] for[facility] , lab resultsVitals: 05/24/20 1410BP: 123/65Pulse: 79Temp: 97.5 F (36.4 C)Te mpSrc: OralSpO2: 98%Weight: 188 lb (85.3 kg)Patient reports a pain score of "0-None" in her No pain location entered forpatient.Pharmacy VerifiedNo Recent ER VisitEmelina Odom Lalita, MD 05/24/2020 6:58 PM SignedLavell Cruz is a 69 year old femalePatient Active Problem ListDiagnosis Hyperlipidemia Hypothyroid Alcohol abuse Tobacco use disorder Severe recurrent major depression without psychotic features (HCC) Borderline per sonality disorder (HCC) PMB (postmenopausal bleeding) Emergency Room Frequent User Lymphocyti c colitisHas appointment with cardiology for dx with lymphocytic colitis, taking bude sonide orally, has refills of thismedicationDr. JASWINDER Hawley was the one who diagnosed her and did a colonoscopy. Nolonger having diarrhea.Still not drinking!ROS: no fevers, chills, cp, n/v/d, sob, ab pain, urinary problems, headache,blurry vision, numbness/tingling, rashes, unint entional weight lossTSH was 16 at last visit, low does of thyroid medication. Will increaseEXAM :BP 123/65 | Pulse 79 | Temp 97.5 F (36.4 C) (Oral) | Wt 188 lb (85.3 kg)| SpO2 98% | BMI 2 9.25 kg/mThe patient appears well, in no apparent distress. Alert and oriented timesthree , pleasant and cooperative. Vital signs are as noted by the nurse.Exam minimized to decrease COV ID-19 transmission1. Hypothyroidism, unspecified type- Levothyroxine Sodium 137 MCG Oral Tab; T jayne ONE tablet (137 mcg total) bymouth daily Dispense: 30 tablet; Refill: 22. Lymphocytic colit is3. Essential hypertension- amLODIPine 5 MG Oral tablet; Take ONE tablet (5 mg total) by mouth dailyDispense: 30 tablet; Refill: 2Lmeron Ahmadi MD [facility] HospitalPrimary Diagnosis:E03.9 Hypothyroidism, unspecified type Other Diagnoses:K52.832 Lymphocytic colitis I10 Essential hypertension F10.10 Alcohol abuse F32.9 Depression, unspecified depres joey typePrescriptions as of 05/24/2020 Disp Refills Start End * amLODIPin e 5 MG Oral tablet 30 t* 2 05/24/2020 08/22/2020 Class: E Prescribing Rou te: Oral Sig: Take ONE tablet (5 mg total) by mouth daily Atorvastatin Calcium 40 MG Oral Tab 30 t* 3 02/17/2020 03/18/2020 Class: E Prescribing Route: Oral Sig: Take ONE tablet (40 mg total) by mouth daily Blood Pressure Monitor Does not ap* 1 kit 0 02/17/2020 Class: E Prescribing Sig: Dispense electronic Blood Pressure monit or with upper arm cuff, use daily as directed. Budesonide 9 MG Oral TABLET SR 24 * 05/16/2020 Class: Historical Med Sig: DULoxetine HCl 60 MG Oral CAPSUL E * 12/23/2019 Class: Historical Med Sig: FLUTICASONE PROPIONATE, N NELLY, 50 * 1 Luis* 5 11/06/2017 Class: E Prescribing Route: Nasal Sig: TWO Act (100 mcg total) into each nostril daily FLUTICASONE PROPIONATE, NASAL, 50 * 0 03/15/2017 Class: Historical Med Sig: instill 1 spray into each nostril t wice a day * Levothyroxine Sodium 137 MCG Oral * 30 t* 2 05/24/2020 06/23/2020 Cla ss: E Prescribing Route: Oral Sig: Take ONE tablet (137 mcg total) by mouth daily * corey mide 2 MG Oral tablet 04/27/2020 05/25/2020 Class: Historical Med Si mg Mirtazapine 45 MG Oral Tab 30 t* 2 02/17/2020 Class: E Prescribing Route: Oral Sig: Take ONE tablet (45 mg total) by mouth daily Potassium Ch loride ER 20 MEQ Oral * 30 t* 1 05/03/2020 06/02/2020 Class: E Prescribing Rout e: Oral Sig: Take ONE tablet (20 mEq total) by mouth daily Sertraline HCl (ZOLOFT) 25 MG O ral* 30 t* 3 05/03/2020 06/02/2020 Class: E Prescribing Route: Oral Sig: Take ONE tablet (25 mg total) by mouth dailyAllergies As of Date: 05/24/2020(No Known Allergies)Date Reviewed: 05/24/2020Reviewed by: Celeste Becker MA - ReviewedLevel of Service:[id number] OFFIC /OUTPT VISIT E&M EST LOW-MOD SEVER* Historical Information Past Medical and Surgical HistoryMedical And Surgical History Item DateHyperlipidemiaDepressionHypothyroidi smNo family history on fileSocial History Marital Status: Single Spouse: Y ears of Education: # children:Social History Narrative (none)Social History Topics Tobacco Use: Yes Cigarettes (Packs/Day): .5 Start Date: Commen t: 6 a day Alcohol Use: No Drug Use: No Sexually Active: NeverImmunizations Administered Bicillin LA 05/02/2017 Influenza, Injectabl e,(cciiv4), Qu* 11/13/2017 Pneumococcal polysaccharide vaccin* 03/27/2019 [place] Trivalent Influenza Vacci* 09/02/2019 Tdap defer-2018 Name Value Range Interpretation Code Description Data Megan rce(s) Supporting Document(s ) ID Date Data Source [id number] 05/04/2020 03:41:54 PM EDT [facility] [place] [facility] Reason for Visit and Comments: Other [0] - pt was on the hospital and was discharged on saturday04/27/20b/c pt had constant d iarrhea, throwing up yellow liquid and pt was tested forpotasium and it was very low Bloodwork [1103] - CMP and TSHVitals (Last Filed):BP 118/78 (Orthostatic Site : Arm - Left, Orthostatic Pos- ition : Sitting, Orthostatic Cuff Size : Adult) Pulse 8- 6 Temp 98.3 F (36.8 C) (Oral) Wt 186 lb (84. 4 kg) - SpO2 95% BMI 28.94 kg/n9NzcsfEddie Hopper MD 05/04/2020 3:41 PM SignedI have identified this patient to be Lavell Cruz, who is 69 year oldfem evelyn who presents forLast drink 04/20/2020Hospitalized for weakness, emes is, near syncopeFor severe hypokalemia with initial EKG changes which improved with repletion-no EKG result in discharge summaryPotassium of 3.8 on 04/27/2020Colon oscopy done without polyps but hemorrhoid biopsiedDeclined rehab but considering A A meetingsDenies any chest pain, shortness of breath, dizziness, muscle achesLoose sto ol improving, 1-2 times a day, no blood in stool, on imodium, has GIapptLevothyroxi ne decreased to 112mcgReview Of Systems: Denies fever, CP, SOB, Abd pain, nausea, vomiti ng, dysuriaMedicines - list reviewed and reconciledPastMedicalHistory: reviewed a nd updatedBP 118/78 (Orthostatic Site : Arm - Left, Orthostatic Position : Sitting,Ort hostatic Cuff Size : Adult) | Pulse 86 | Temp 98.3 F (36.8 C) (Oral) |Wt 186 lb (84 .4 kg) | SpO2 95% | BMI 28.94 kg/mGen: In no acute distressLungs clear to ascultat ion bilaterallyHeart: regular rate rhythm, negative murmurAbdomen: soft, nontender, + bowel soundsNeuro: No gross abnormalities1. Hypothyroidism, unspecified type2. Hypok alemiaHypokalemia - thought to be secondary to chronic diarrhea, continue repletion,imo dium, follow up with GIHospital discharge records reviewed and scanned to chartRec heck TSH in 8 weeks since recent adjustment of dose, continue 112mcglevothyroxine- COMP METABOLIC PANEL; Future- TSH, HIGH SENSITIVITY (SERUM); Future- TSH, HIGH SENSITIVITY ( SERUM)- COMP METABOLIC PANEL- ROUTINE VENIPUNCT/FINGER/HEEL STICK-COL*- HANDL &/OR CONVEY SPECMN-TRANSF OFFIC T*3. Alcohol abuseCounseling given, declines rehab at this time, encouraged close follow up andAA meeting when able4. DiarrheaAvoid trigge rs, imodium, follow up with Sheryl Renee MA 05/04/2020 3:41 PM SignedI have identif ied this patient to be Lavell Cruz, -1950.Chief ComplaintPatient prese nts with? Other pt was on the hospital and was discharged on saturday04/27/20 b/c p t hadconstant diarrhea, throwing up yellow liquid and pt was tested for potasium an dit was very low? Bloodwork CMP and TSHVitals: 05/04/20 1448BP: 118/78Orthos tatic Site : Arm - LeftOrthostatic Position : SittingOrthostatic Cuff Size : AdultPuls e: 86Temp: 98.3 F (36.8 C)TempSrc: OralSpO2: 95%Weight: 186 lb (84.4 kg)Patient repor ts a pain score of "0-None" in her No pain location entered forpatient.Pharmacy [facility] VerifiedER Visit Status= 04/27/20 discharged from [facility] JOSE Torres I have identified this patient to be Lavell Cruz, -1950.Lavell Sumner [facility]asmeen [facility] today to have blood drawn. 1sst tubes sentto [facility]. Pat iepaolo tolerated the procedure well and will return [facility] for results.Lab beatriz ges was done.Jordan Velazquez Diagnosis:E87.6 Hypokalemia Other D iagnoses:E03.9 Hypothyroidism, unspecified type F10.10 Alcohol abuse Z11.4 Encounter for screening for HIV Z53.2 0 Surgical or procedure not carried out because ofpatient s decision R19.7 Diarrhea, unspecified type E87.6 Hypokalemia (Activ e) Comment:Billing Diagnosis E03.9 Hyp othyroidism, unspecified (Active) Comment:Billing Diagnosis F10.10 Alcohol abuse, uncomplicated (Active) Comment:Billing Diagnosis Z11.4 Encounter for screening f or human immunodeficiencyvirus (HIV) (Active) Comment:Billing Diagnosis R19.7 Diarrhea, unspecified (Active) Comment:Billing DiagnosisPrescriptions as of 05/04/2020 Disp Refills Start End amLODIPine 5 MG Oral tablet 30 t* 2 020 05/17/2020 Class: E Prescribing Route: Oral Sig: Take ONE tablet (5 m g total) by mouth daily Atorvastatin Calcium 40 MG Oral Tab 30 t* 3 020 03/18/2020 Class: E Prescribing Route: Oral Sig: Take ONE tablet (40 mg total) by mouth daily Blood Pressure Monitor Does not ap* 1 kit 0 02/17/2020 Class: E Prescribing Sig: Dispense electronic Blood Pressure monit or with upper arm cuff, use daily as directed. DULoxetine HCl 60 MG Oral C APSULE * 12/23/2019 Class: Historical Med Sig: FLUTICASONE PA OPIONATE, NASAL, 50 * 1 Luis* 5 11/06/2017 Class: E Prescribing Ro [place]: Nasal Sig: TWO Act (100 mcg total) into each nostril daily FLUTICASONE PROPIO KHLOE, NASAL, 50 * 0 03/15/2017 Class: Historical Med Sig: instill 1 spray into each nostril twice a day Levothyroxine Sodium 112 MCG Oral * 30 t * 0 05/03/2020 06/02/2020 Class: E Prescribing Route: Oral Sig: Take ONE tablet (112 mcg total) by mouth daily Mirtazapine 45 MG Oral Tab 30 t * 2 02/17/2020 Class: E Prescribing Route: Oral Sig: Take ONE tablet (45 mg total) by mouth daily Potassium Chloride ER 20 MEQ Oral * 30 t * 1 05/03/2020 06/02/2020 Class: E Prescribing Route: Oral Sig: Take ONE tablet (20 mEq total) by mouth daily Sertraline HCl (ZOLOFT) 25 MG Oral* 30 t * 3 05/03/2020 06/02/2020 Class: E Prescribing Route: Oral Sig: Take ONE tablet (25 mg total) by mouth dailyAllergies As of Date: 05/04/2020(No Known Allergies)Date Reviewed: 05/04/2020Reviewed by: Sheryl Torres MA - ReviewedLevel of Service:[id number] OFFIC/OUTPT VISIT E&M EST LOW-MOD SEVER* Historical Information ------- ----Past Medical and Surgical HistoryMed ical And Surgical History Item DateHyperlipidemiaDepressionHypothyroidi smNo family history on fileSocial History Marital Status: Single Sp ouse: Years of Education: # children:Social History Narrative (none )Social History Topics Tobacco Use: Yes Cigarettes (Packs/Day): .5 Start D ate: Comment: 6 a day Alcohol Use: No Drug Use: No Sexually Active: NeverImmuni zations Administered Bicillin LA Influenza, Injectable,(cciiv4), Qu* 11/13/2017 Pneumococcal polysaccharide vaccin* 03/27/2019 Seasonal Trivalent Influenza Vacci* 09/02/2019 Tdap defer-07/17/2019 Name Value Range Interpretation Code Description Data Megan rce(s) Supporting Document(s ) ID Date Data Source [id number] 05/05/2020 01:34:00 PM EDT [facility] Name Value Range Interpretation Code Description Data Megan rce(s) Supporting Document(s ) TSH 16.640 0.234-4.02 Above high normal The Institu te uIU/mL 0 [facility] ID Date Data Source [id number] 05/05/2020 08:57:00 AM EDT [facility] Name Value Range Interpretation Description Data Sup porting Code Source(s) Document(s ) PROTEIN, 6.7 g/dL 5.9-8.4 The TOTAL, SERUM [place] [facility] ALBUMIN 3.8 g/dL 3.5-5.[address] [place] [address] [facility] GLOBULIN, 2.9 g/dL 1.7-3.7 The TOTAL [facility] A/G RATIO 1.3 1.1-2.9 The Ratio [facility] SODIUM 138 135-147 The mmol/L [facility] POTASSIUM 4.4 3.5-5.5 The mmol/L [facility] CHLORIDE 101 96-108 The mmol/L [facility] CARBON DIOXIDE 25 22-29 The mmol/L [facility] UREA NITROGEN 9 mg/dL 8-23 The (BUN) [facility] CREATININE 0.82 0.49-1.0 The mg/dL 2 [facility] EGFR 73 >or=60 The mL/min [facility] EGFR 85 >or=60 The [place] mL/min [facility] BUN/CREATININE 11.0 10.0-28. The RATIO Ratio 0 [facility] CALCIUM 9.0 8.6-10.4 The mg/dL [facility] BILIRUBIN, <0.2 <1.2 The TOTAL mg/dL [facility] ALKALINE 48 U/L 40-156 The PHOSPHATASE [facility] AST (SGOT) 26 U/L <32 The [facility] ALT (SGPT) 13 U/L <33 The [facility] GLUCOSE 101 70-99 Above high normal The mg/dL [facility] ID Date Data Source [id number] 11/16/2019 07:05:55 PM EST [facility] Reason for Visit and Comments: Medica tion Request [386] Well Exam [1110] Other [0] - no recent er visit Cold Symptoms [186]Pat linares (Last Filed):BP 103/68 (Orthostatic Site : Arm - Right, Orthostatic Po- sition : Sitting, Orthostatic Cuff Size : Adult) Pulse - 74 Temp 98. 2 F (36.8 C) (Oral) Wt 204 lb (92.5 kg) - SpO2 96% BMI 31.74 kg/s2Qithvx History RecordedCeleste Becker 11/16/2019 7:05 PM SignedI have identified this patient to be Lavell Cruz, -1950.Chief ComplaintPatient presents with Medicati on Request Well Exam Other no recent er visit Cold SymptomsVitals: 11/16/19 1100BP: 103/68O rthostatic Site : Arm - RightOrthostatic Position : SittingOrthostatic Cuff Size : AdultPuls e: 74Temp: 98.2 F (36.8 C)TempSrc: OralSpO2: 96%Weight: 204 lb (92.5 kg)Patient repor ts a pain score of "0-None" in her No pain location entered forpatient.Pharmacy VerifiedNo R ecent ER Marcus Maynard Lalita, MD 11/16/2019 7:05 PM SignedPatricblank lundberg is a 69 year old femalePatient Active Problem ListDiagnosis Hyperlipidemia Hypothyro id Depression Alcohol abuse Tobacco use disorder Severe recurrent major depression withou t psychotic features (HCC) Borderline personality disorder (HCC) PMB (postmenopausal blee ding) Emergency Room Frequent UserWants to go to rehab for the holidaysHaving difficulty follow ing up with [facility] to [facility] to get insurance to pay for rehabCurrently drinking 1 bot tle wine and 1 pint of rum, was not using alcoholduring my visit, but apparently was actively dr inking alcohol while meetingwith mental healthTried to commit suicide in 1999sHaving increasing ly suicidal thoughts, but no plan to kill herself. "If I had agun I would just shoot myself, but I don t know where to get a gun."Needs refills for thyroid and cholesterol medicationDiscus sed with patient access to after-hours providers, weekend and eveningcare, and onsite and affiliated resources as well as appropriate use ofemergency room services when needed.EX AM:BP 103/68 (Orthostatic Site : Arm - Right, Orthostatic Position : Sitting,Orthostat ic Cuff Size : Adult) | Pulse 74 | Temp 98.2 F (36.8 C) (Oral) |Wt 204 lb (92.5 kg) Comment: w shoes | SpO2 96% | BMI 31.74 kg/mThe patient appears well, in no apparent distress. Alert and oriented timesthree, pleasant and cooperative. Vital signs are as noted by the nurse.We ight Assessment and CounselingPatricia s body mass index is 31.74 kg/m. This is considered to be obese.Using shared medical decision- making, discussed with patient an individualizedplan that includes both diet and exercise recommendations.1. Refused influenza vaccine2. Severe episo de of recurrent major depressive disorder, without psychoticfeatures (HCC)- Mirtazapine 45 MG Oral Tab; Take ONE tablet (45 mg total) by mouth dailyDispense: 30 tablet; Refill: 23. Ot her specified hypothyroidism- Levothyroxine Sodium 137 MCG Oral Tab; Take ONE tablet (137 mcg t otal) bymouth daily Dispense: 30 tablet; Refill: 5Discussed with health and social care teacher today poss ibility of getting patient to inpatientrehab.If unable to have scheduled check-in with patient next SaturdayJagruti Ahmadi MD [facility] PhysicianCrawley Memorial HospitalPrim christopher Diagnosis:Z28.21 Refused influenza vaccine Other Diagnoses:F33.2 Severe episode of re current major depressive disorder, without psychotic features (HCC) E03.8 Other specified hypothyroidism Z28.21 Immunization not ca rried out because of patientrefusal (Active) Comment:Billing Diagnosis F33.2 Major depressive disorder, recurrent severe withoutpsychotic featur es (Active) Comment:Billing Diagnosis E03.8 Oth er specified hypothyroidism (Active) Comment:Billing DiagnosisPrescrip tions as of 11/16/2019 Disp Refills Start End * Aripiprazole (ABILIFY) 10 MG Oral * 02/19/2019 Class: Historical Med Route: Oral Sig: Ta ke 10 mg by mouth Atorvastatin Calcium 40 MG Oral Tab 30 t* 3 03/27/2019 04/26/2019 Class: E Prescribing Route: Oral Sig: Take ONE tablet (40 mg total) by mouth daily F LUoxetine HCl 40 MG Oral Cap 0 09/25/2019 Class: Historical Med Si g: TK ONE C PO QD FLUTICASONE PROPIONATE, NASAL, 50 * 1 Luis* 5 11/06/2017 Class : E Prescribing Route: Nasal Sig: TWO Act (100 mcg total) into each nostril daily FLUTIC ASONE PROPIONATE, NASAL, 50 * 0 03/15/2017 Class: Historical Med Si g: instill 1 spray into each nostril twice a day folic acid 1 MG Oral tablet 30 t * 5 07/17/2019 11/14/2019 Class: E Prescribing Route: Oral Sig: Take ONE tablet (1 mg total) by mouth daily * Levothyroxine Sodium 137 MCG Oral * 30 t* 5 11/16/2019 Class: E Prescribing Route: Oral Sig: Take ONE tablet (137 mcg total) by mouth daily * Mirtazapine 45 MG Oral Tab 30 t* 2 11/16/2019 Class: E Pres cribing Route: Oral Sig: Take ONE tablet (45 mg total) by mouth daily thiamine 100 MG Oral tablet 30 t* 5 07/17/2019 10/15/2019 Class: E Prescribing [place]: Oral Sig: Take ONE tablet (100 mg total) by mouth dailyAllergies As of Date: 019(No Known Allergies)Date Reviewed: 11/16/2019Reviewed by: Celeste Becker - [facility]ed[facility] Ser vice[id number] OFFIC/OUTPT VISIT E&M EST LOW-MOD SEVER* Historical Information Past Medical and Surgical HistoryMedical And Surgical History Item DateHyperlipidemiaDepressionHypothyroidi smNo family history on fileSocial History Marital Status: Single Spouse: Y ears of Education: # children:Social History Narrative (none)Social History Topics Tobacco Use: Yes Cigarettes (Packs/Day): .5 Start Date: Commen t: 6 a day Alcohol Use: No Drug Use: No Sexually Active: NeverImmunizations Administered Bicillin LA 05/02/2017 Influenza, Injectabl e,(cciiv4), Qu* 11/13/2017 Pneumococcal polysaccharide vaccin* 03/27/2019 [place] Trivalent Influenza Vacci* 09/02/2019 Tdap defer-2018 Name Value Range Interpretation Code Description Data Megan rce(s) Supporting Document(s ) ID Date Data Source [id number] 07/17/2019 12:45:50 PM EDT [facility] Reason for Visit and Comments: Other [0] - pt would like to do a endoscopy to see why is the reason herstomach is bothering to o much. Other [0] - pt want a blood test to check her thyroid and checkprescription she was given on the hospital Other [0] - no Er visit Forms [188] - forms to be fi lled out for transportationVitals (Last Filed):BP 126/75 (Orthostatic Site : Arm - Right, Orthostatic Po- sition : Sitting, Orthostatic Cuff Size : Adult) Pulse - 81 Temp 98.5 F (36.9 C) (Oral) Wt 208 lb (94. 3 kg) - SpO2 95% BMI 32.36 kg/i0Emzbmi History RecordedSheryl Torres MA 07/17/2019 12:39 PM SignedI have identified this patient to be Lavell reagan, -1950.Chief ComplaintPatient presents with Other pt would like to d o a endoscopy to see why is the reason her stomach isbothering too much. Other pt want a blood test to check her thyroid and check prescription she wasgiven on the h ospital Other no Er visit Forms forms to be filled out for transportationVitals: 0857BP: 126/75Orthostatic Site : Arm - RightOrthostatic Position : SittingOrtho static Cuff Size : AdultPulse: 81Temp: 98.5 F (36.9 C)TempSrc: OralSpO2: 95%Weight: 2 08 lb (94.3 kg)Patient reports a pain score of "0-None" in her No pain location entered forpatient.Pharmacy VerifiedAllergies VerifiedER Visit Status= Marcus Yates Lalita, MD 07/17/2019 12:39 PM SignedLavell Cruz is a 68 year old femalePatient Active Problem ListDiagnosis Hyperlipidemia Hypothyroid Depression Alcohol abuse Tobacco use disorder 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) Borderline personality disorder (HCC) PMB (postmenopausal blee ding) Emergency Room Frequent UserRecently hospitalized for rehab in Mayconcnered for loose stool GI referral, had FIT testing in February that wasnegative, denies bleeding, no nausea, no vomiting, no coughing up blood, nomelenaStill drinking 1 pint of rum ron ly with mixerNot interested in stopping drinking, but interested in trailing lulu canHaving eye openers dailyCurrent Outpatient Medications: Atorvastatin Calcium 40 M G Oral Tab, Take ONE tablet (40 mg total) by mouthdaily, Disp: 30 tablet, Rfl: 3 DU Loxetine HCl 60 MG Oral CAPSULE ENTERIC COATED PARTICLES, Take ONE capsule(60 mg total) by mouth daily, Disp: 30 capsule, Rfl: 3 FLUTICASONE PROPIONATE, NASAL, 50 MCG/AC T Nasal Suspension, TWO Act (100 mcgtotal) into each nostril daily, Disp: 1 Bottle, Rfl: 5 FLUTICASONE PROPIONATE, NASAL, 50 MCG/ACT Nasal Suspension, instill 1 sprayinto ea ch nostril twice a day, Disp: , Rfl: 0 folic acid 1 MG Oral tablet, Take ONE tablet ( 1 mg total) by mouth daily,Disp: 30 tablet, Rfl: 5 Levothyroxine Sodium 137 MCG Oral Ta b, Take ONE tablet (137 mcg total) bymouth daily, Disp: 30 tablet, Rfl: 5 Mirtaza pine 45 MG Oral Tab, Take ONE tablet (45 mg total) by mouth daily,Disp: 30 tablet, R fl: 3 Naltrexone HCl 50 MG Oral Tab, Take ONE tablet (50 mg total) by mouth dailyfor 1 4 days, Disp: 14 tablet, Rfl: 0 thiamine 100 MG Oral tablet, Take ONE tablet (100 mg total) by mouth daily,Disp: 30 tablet, Rfl: 5EXAM:BP 126/75 (Orthostatic Site : Arm - Right, Orthostatic Position : Sitting,Orthostatic Cuff Size : Adult) | Pulse 81 | Temp 98.5 F (36.9 C) (Oral) |Wt 208 lb (94.3 kg) | SpO2 95% | BMI 32.3 6 kg/mThe patient appears well, in no apparent distress. Alert and oriented timesthree , pleasant and cooperative. Vital signs are as noted by the nurse.Abdomen: soft, non-te nder, normal bowel sounds, no masses, no organomegaly.1. Alcohol abuse- Naltrexon e HCl 50 MG Oral Tab; Take ONE tablet (50 mg total) by mouth dailyfor 14 days Dispen se: 14 tablet; Refill: 0- folic acid 1 MG Oral tablet; Take ONE tablet (1 mg total) by mouth dailyDispense: 30 tablet; Refill: 5- thiamine 100 MG Oral tablet; Take ONE ta blet (100 mg total) by mouth dailyDispense: 30 tablet; Refill: 5- TSH, HIGH SENSITIVITY (SERUM); Future- HGA1C (HGB GLYCOSYLATED); Future- LIPID PANEL; Future- COMP METABO LIC PANEL; Future- ULTRASOUND, LIVER2. Diarrhea, unspecified type- CONSULT TO GASTROENTER OLOGYLalita Abhyankar, MD [facility] Family PhysicianCrawley Memorial HospitalDis ussed with patient access to after-hours providers, weekend and eveningcare, and onsite and affiliated resources as well as appropriate [facility] s when needed.Ivory Jesus MA 07/17/2019 12:39 PM SignedMental Health Screenings and AssessmentsPHQ-2: Over the the past two weeks, how often have you been bothered by thefollowing...?PHQ-2 Total: 1PHQ- 9:Over the past two weeks, how often have you been bothered by thefollowing...? (Ulysses las ultimas 2 semanas, con que frecuencia le hanmolestado los siguientes problemas...?)1. Little interest or pleasure doing things (Tener poco interes o disfrutarpoco de hacer cosas): Several days2. Feeling down, dep ressed, or hopeless (Sentirse desanimado/a, deprimido/a, osin sha): Not at all 3. Trouble falling or staying asleep, or sleeping too much (Tener problemaspara d ormir (coger el sueno o mantenerlo) o tener mas sueno de la cuenta): Notat all4. Feeling tired or having little energy (Sentirse cansado/a o con pocaenergia): Several da ys5. Poor appetite or overeating (Tener poco apetito o comer en exceso): Not atall6. Feeling bad about yourself- or that you are a failure or have let yourselfor your fami ly down (Sentimientos de culpabilidad, desesperanza o perdida deautoestima sensacion de ser un fracaso o mark dece pcionado a goodrich tanner o simismo): Several days7. Trouble concentrating on things such as reading the newspaper or watchingtelevision (Tener problemas para concentrarse, lele por ejemplo para leer elperiodico o nedra la television): Not at all8. Moving or spea sushila slowly that other people have noticed. Or being sofidgety or restless that you hav e been moving around more than usual. (Moverseo hablar lentamente que los demas lo thomas n otado o estar mas inquieto ointranquilo de lo habitual): Not at all9. Thoughts that you would be better off or of hurting yoursel f insomeway. (Tener pensamientos de que seria mejor estar muerto/a o de hacersedano a si mismo de alguna manera): (!) Several daysPHQ-9 Total: 4.1GAD-7: Over the the past two weeks, how often have you been bothered by thefollowing...?1. Feeling nervous, a nxious, or on edge: Nearly every day2. Not being able to stop or control worrying: Not at all3. Worrying too much about different things: Not at all4. Trouble relaxing: Several d ays5. Being so restless that it s hard to sit still: Not at all6. Becoming easily anno yed or irritable: Several days7. Feeling afraid as if something awful might happen: Not at allGAD-7 Total: 7NNOTA8. How often do you have a drink containing alcohol?: 4 or m ore times a week2. How many standard drinks containing alcohol do you have on a typ ical daywhen drinking?: 7, 8, or 93. How often do you have six or more drinks on one oc casion?: Daily or almostdailyI have identified this patient to be Lavell Cruz, DO B -1950.Lavell Cruz at [facility] today to have blood drawn. 1 SST and 1L avender tubes sent to [facility]. She tolerated the procedure well andhansel davis urn to the clinic for results.Mariela Dunbar Diagnosis:F10.10 A lcohol abuse Other Diagnoses:R19.7 Diarrhea, unspecified type Z23 Need for prophylactic vaccination with jnxrhiqnaqbdmshvxq-otrajwp-yxvfgazo s (DTP) vaccine F10.10 Alcohol abuse, uncomplicated (Active) Comment:Billing Diagnosis R19.7 Sarah rrhea, unspecified (Active) Comment:Billing Diagnosis Z23 Encounter for immunization (Active) Comm ent:Billing DiagnosisPrescriptions as of 07/17/2019 Disp Refills S tart End amLODIPine 5 MG Oral tablet 30 t* 3 03/27/2019 04/26/20 19 Class: E Prescribing Route: Oral Sig: Take ONE tablet (5 mg total) by quiana th daily Atorvastatin Calcium 40 MG Oral Tab 30 t* 3 03/27/2019 04/26/2019 Class: E Prescribing Route: Oral Sig: Take ONE tablet (40 mg total) by mouth d aily DULoxetine HCl 60 MG Oral CAPSULE * 30 c* 3 03/27/2019 04/26/2019 C lass: E Prescribing Route: Oral Sig: Take ONE capsule (60 mg total) by mouth daily FLUTICASONE PROPIONATE, NASAL, 50 * 1 Luis* 5 11/06/2017 Class: E Prescri lupillo Route: Nasal Sig: TWO Act (100 mcg total) into each nostril daily FLUTIC ASONE PROPIONATE, NASAL, 50 * 0 03/15/2017 Class: Historical Med Si g: instill 1 spray into each nostril twice a day * folic acid 1 MG Oral tablet 3 0 t* 5 07/17/2019 11/14/2019 Class: E Prescribing Route: Oral S ig: Take ONE tablet (1 mg total) by mouth daily Levothyroxine Sodium 137 MCG Oral * 30 t* 5 03/27/2019 Class: E Prescribing Route: Oral Sig: Take ONE tablet (137 mcg total) by mouth daily Mirtazapine 45 MG Oral Tab 30 t * 3 03/27/2019 Class: E Prescribing Route: Oral Sig: Take ONE tablet (4 5 mg total) by mouth daily * Naltrexone HCl 50 MG Oral Tab 14 t* 0 06/2607/31/2019 Class: E Prescribing Route: Oral Sig: Take ONE tablet (50 mg total) by mouth daily for 14 days * thiamine 100 MG Oral tablet 30 t* 5 07/17/2019 10/15/2019 Class: E Prescribing Route: Oral Sig: Take ONE tablet (100 mg total) by mouth dailyAllergies As of Date: 07/17/2019(No Known Allergies)Date Reviewed: 07/17/2019Reviewed by: Jagruti Ahmadi MD - ReviewedLevel of Service:25135 OFFIC/OUTPT VISIT E&M EST LOW-MOD SEVER* Historical Information -------- ---Past Medical and Surgical HistoryMedi david And Surgical History Item DateHyperlipidemiaDepressionHypothyroidi smNo family history on fileSocial History Marital Status: Single Sp ouse: Years of Education: # children:Social History Narrative (none )Social History Topics Tobacco Use: Yes Cigarettes (Packs/Day): .5 Start Da te: Comment: 6 a day Alcohol Use: No Drug Use: No Sexually Active: NeverImmuni zations Administered Bicillin LA Influenza, Injectable,(cciiv4), Qu* 11/13/2017 Pneumococcal polysaccharide vaccin* 03/27/2019 Tdap defer-07/17/2019 Name Value Range Interpretation Code Description Data Megan rce(s) Supporting Document(s ) ID Date Data Source [id number] 07/18/2019 03:46:00 AM EDT [facility] Name Value Range Interpretation Description Data Sup porting Code Source(s) Document(s ) CHOLESTEROL 198 <200 The mg/dL [facility] HDL CHOLESTEROL 74 mg/dL >50 [facility] TRIGLYCERIDES 227 <150 Above high normal The mg/dL [facility] HDL % OF 37 % >14 The CHOLESTEROL [facility] Evaluation: BELOW AVERAGE RISK CHOL/HDL RATIO 2.7 NA <5.8 [facility] Evaluation: BELOW AVERAGE RISK HDL/LDL RATIO 1.07 NA <3.56 [facility] LDL CHOLESTEROL 79 mg/dL <100 [facility] VLDL CHOLESTEROL DAVID 45 mg/dL 7-32 Above high normal T he [facility] NON HDL CHOL. (LDL+VLDL) 124 mg/dL <130 [facility] Date Data Source [id number] 07/18/2019 03:46:00 AM EDT [facility] Name Value Range Interpretation Description Data Sup porting Code Source(s) Document(s ) PROTEIN, 7.1 g/dL 5.9-8.4 The TOTAL, SERUM [facility] ALBUMIN 4.3 g/dL 3.5-5.2 The [facility] GLOBULIN, 2.8 g/dL 1.7-3.7 The TOTAL [facility] A/G RATIO 1.5 1.1-2.9 The Ratio [facility] SODIUM 138 135-147 The mmol/L [facility] POTASSIUM 4.0 3.5-5.5 The mmol/L [facility] CHLORIDE 101 96-108 The mmol/L [facility] CARBON DIOXIDE 22 22-29 The mmol/L [facility] UREA NITROGEN 22 mg/dL 8-23 The (BUN) [facility] CREATININE 0.57 0.49-1.0 The mg/dL 2 [facility] EGFR 95 >or=60 The mL/min [facility] EGFR 110 >or=60 The [place] mL/min [facility] BUN/CREATININE 38.6 10.0-28. Above high normal The RATIO Ratio 0 [facility] CALCIUM 9.2 8.6-10.4 The mg/dL [facility] BILIRUBIN, 0.6 <1.2 The TOTAL mg/dL [facility] ALKALINE 62 U/L 40-156 The PHOSPHATASE [facility] AST (SGOT) 38 U/L <32 Above high normal The [facility] ALT (SGPT) 31 U/L <33 The [facility] GLUCOSE 77 mg/dL 70-99 The [facility] ID Date Data Source [id number] 07/18/2019 03:33:00 AM EDT [facility] Name Value Range Interpretation Code Description Data Megan rce(s) Supporting Document(s ) TSH 4.800 0.338-3.91 Above high normal The Institu te uIU/mL [address] [facility] NOTE: New reference range for TSH implem ented on 06-03-19. ID Date Data Source [id number] 07/18/2019 12:38:00 AM EDT [facility] Name Value Range Interpretation Description Data Sup porting Code Source(s) Document(s ) HEMOGLOBIN A1C 5.4 % <5.7 The [facility] HEMOGLOBIN A1c AND eAG REFERENCE RANGES A1c(%) DIABETES CATEGORY* <5.7 Normal (non-diabetic) 5.7-6.4 [address] ri sk of diabetes =>6.5 Consistent with diabetes A1c(%) eAG(ESTIMATED AVERAGE PLASMA GLUCOSE)(mg/dL) 6 126 7 154 8 183 9 212 10 240 11 269 12 298 *recom [facility] regioned ranges-[place] [employer](2010) NOTE: The amount of gl ycated hemoglobin as measured by the HbA1c test may be overestimated in [place] n Americans and should not be used as the sole parameter of glycemic burden. Similarly, hemolysis, genetic hemoglobin variants and chemically modified hemoglo bin derivatives (as seen in renal failure, smoking, aspirin use) may also affect glycated hemoglobin levels. Procedure Social History Code Duration Value Status Description Data Source(s ) Alcohol intake 07/25/2020 Current completed Current The [facility] [place] 12:00:00 AM non-drinker non-drinker of For Fami ly EDT of alcohol alcohol (finding) Health (finding) Tobacco use and 07/25/2020 Never used completed Never used The Insti tute exposure 12:00:00 AM For Family EDT Health Cigarettes 07/25/2020 UNK completed [facility] smoked current 12:00:00 AM For Famil y (pack per day) - EDT Health Reported Smoking 07/25/2020 Current every completed Current every day [facility] 12:00:00 AM day smoker smoker For Family EDT Health Alcohol intake 05/24/2020 Current completed Current [facility] [place] 12:00:00 AM non-drinker non-drinker of For Fami ly EDT of alcohol alcohol (finding) Health (finding) Cigarettes 05/04/2020 K [facility] smoked current 12:00:00 AM For Famil y (pack per day) - EDT Health Reported Alcohol intake 05/04/2020 Current The [facility] [place] 12:00:00 AM non-drinker For Family EDT of alcohol Health (finding) Tobacco use and 05/04/2020 Never used The Insti tute exposure 12:00:00 AM For Family EDT Health Tobacco smoking 05/04/2020 Current every The In stitute status NHIS 12:00:00 AM day smoker For Family EDT Health Cigarettes 11/16/2019 UNK [facility] smoked current 12:00:00 AM For Famil y (pack per day) - EST Health Reported Tobacco use and 11/16/2019 Never used The Insti tute exposure 12:00:00 AM For Family EST Health Tobacco smoking 11/16/2019 Current every The In stitute status NHIS 12:00:00 AM day smoker For Family EST Health Alcohol intake 11/16/2019 Current The [facility] [place] 12:00:00 AM non-drinker For Family EST of alcohol Health (finding) Alcohol intake 07/17/2019 Current completed The [facility] [place] 12:00:00 AM non-drinker For Family EDT of alcohol Health (finding) Tobacco smoking 07/17/2019 Current every completed Current every day [facility] status NHIS 12:00:00 AM day smoker smoker For Family EDT Health Cigarettes 07/17/2019 UNK completed [facility] smoked current 12:00:00 AM For Famil y (pack per day) - EDT Health Reported Vital Signs ID Date Data Source UNK Name Value Range Interpretation Code Description Data Source(s) Oxygen saturation 97 % 97 % The Ins titute in Arterial blood For Shilo renetta by Pulse oximetry [facility] Body mass index 30.18 kg/m2 30.18 kg/m2 The Ins titute (BMI) [Ratio] For [facility] Body weight 87.998 kg 87.998 kg The [facility] Body temperature 36.33 Kimi 36.33 Kimi The Inst itute For [facility] Heart rate 78 /min 78 /min The [facility] Diastolic blood 70 mm[Hg] 70 mm[Hg] The Insti tute pressure For [facility] Systolic blood 126 mm[Hg] 126 mm[Hg] The Instit [place] pressure For Family Health Oxygen saturation 98 % 98 % The Ins titute in Arterial blood For Shilo renetta by Pulse oximetry [facility] Body weight 85.276 kg 85.276 kg The [facility] Body temperature 36.39 Kimi 36.39 Kimi The Inst itute For [facility] Heart rate 79 /min 79 /min The [facility] Diastolic blood 65 mm[Hg] 65 mm[Hg] The Insti tute pressure For [facility] Systolic blood 123 mm[Hg] 123 mm[Hg] The Instit [place] pressure For [facility] Oxygen saturation 95 % 95 % The Ins titute in Arterial blood For Shilo renetta by Pulse oximetry [facility] Body weight 84.369 kg 84.369 kg The [facility] Body temperature 36.83 Kimi 36.83 Kimi The Inst itute For [facility] Heart rate 86 /min 86 /min The [facility] Diastolic blood 78 mm[Hg] 78 mm[Hg] The Insti tute pressure For Family Health Systolic blood 118 mm[Hg] 118 mm[Hg] The Instit [place] pressure For [facility] Oxygen saturation 96 % 96 % The Ins titute in Arterial blood For Fam renetta by Pulse oximetry [facility] Body weight 92.534 kg 92.534 kg [facility] Body temperature 36.78 Kimi 36.78 Kimi The Inst itute For [facility] Heart rate 74 /min 74 /min The [facility] Diastolic blood 68 mm[Hg] 68 mm[Hg] The Insti tute pressure For Family Health Systolic blood 103 mm[Hg] 103 mm[Hg] The Instit [place] pressure For [facility] Oxygen saturation 95 % 95 % The Ins titute in Arterial blood For Fam renetta by Pulse oximetry [facility] Body mass index 32.36 kg/m2 32.36 kg/m2 The Ins titute (BMI) [Ratio] For [facility] Body weight 94.348 kg 94.348 kg The [facility] Body temperature 36.94 Kimi 36.94 Kimi The Inst itute For [facility] Heart rate 81 /min 81 /min The [facility] Diastolic blood 75 mm[Hg] 75 mm[Hg] The Insti tute pressure For Family Health Systolic blood 126 mm[Hg] 126 mm[Hg] The Instit [place] pressure For [facility] Patient Treatment Plan of Care Planned Activity Planned Date Details Description Data Source (s) Levothyroxine Sodium 0.15 08/12/2020 12:00:00 [facility] For MG Oral Tablet AM [facility] Mirtazapine 45 MG Oral 07/25/2020 12:00:00 [facility] For Tablet AM [facility] Amlodipine 5 MG Oral 07/25/2020 12:00:00 [facility] For Tablet AM [facility] atorvastatin 40 MG Oral 07/25/2020 12:00:00 [facility] For Tablet AM [facility] Levothyroxine Sodium 07/25/2020 12:00:00 [facility] For 0.137 MG Oral Tablet AM [facility] Potassium Chloride 20 MEQ 07/05/2020 12:00:00 [facility] For Extended Release Oral AM [facility] Tablet Amlodipine 5 MG Oral 05/24/2020 12:00:00 [facility] For Tablet AM [facility] Levothyroxine Sodium 05/24/2020 12:00:00 [facility] For 0.137 MG Oral Tablet AM [facility] 24 HR Budesonide 9 MG 05/16/2020 12:00:00 [facility] For Extended Release Oral AM [facility] Tablet Sertraline 25 MG Oral 05/03/2020 12:00:00 [facility] For Tablet AM [facility] Potassium Chloride 20 MEQ 05/03/2020 12:00:00 [facility] For Extended Release Oral AM [facility] Tablet Blood Pressure Monitor 02/17/2020 12:00:00 [facility] For Does not apply Kit AM [facility] Family He alth atorvastatin 40 MG Oral 02/17/2020 12:00:00 [facility] For Tablet AM [facility] Mirtazapine 45 MG Oral 02/17/2020 12:00:00 [facility] For Tablet AM [facility] duloxetine 60 MG Delayed 12/23/2019 12:00:00 [facility] For Release Oral Capsule AM [facility] Folic Acid 1 MG Oral 07/17/2019 12:00:00 [facility] For Tablet AM [facility] Thiamine 100 MG Oral 07/17/2019 12:00:00 [facility] For Tablet AM [facility] Naltrexone hydrochloride 07/17/2019 12:00:00 The [place] [facility] 50 MG Oral Tablet AM [facility] lt atorvastatin 40 MG Oral 03/27/2019 12:00:00 [facility] [place] [facility] Tablet AM [facility] duloxetine 60 MG Delayed 03/27/2019 12:00:00 [facility] [place] [facility] Release Oral Capsule AM [facility] Levothyroxine Sodium 03/27/2019 12:00:00 [facility] [place] [facility] 0.137 MG Oral Tablet AM [facility] Mirtazapine 45 MG Oral 03/27/2019 12:00:00 [facility] [place] [facility] Tablet AM [facility] Thiamine 100 MG Oral 03/27/2019 12:00:00 [facility] [place] [facility] Tablet AM [facility] Folic Acid 1 MG Oral 03/27/2019 12:00:00 [facility] [place] [facility] Tablet AM [facility]
--- NOTE | 2020-09-01 12:51 | HP ---
CIWA Score Nausea/Vomitin Muscle Tremors: 3 Anxiety: 3 Agitation: 1-Slight > Activity Paroxysmal Sweats: 5 Orientation: 0-Oriented Tacttile Disturbances: 0-None Auditory Disturbances: 0-None Visual Disturbances: 0-None Headache: 0-None Present (not yet in full withdrawals due to drinking at 7AM today.) CIWA-Ar Total Score: 14 - Admission Criteria OASAS Guidelines: Admission for Medically Managed Detox: Requires at least one of the followin. CIWA greater than 12 2. Seizures within the past 24 hours 3. Delirium tremens within the past 24 hours 4. Hallucinations within the past 24 hours 5. Acute intervention needed for co occurring medical disorder 6. Acute intervention needed for co occurring psychiatric disorder 7. Severe withdrawal that cannot be handled at a lower level of care (continued vomiting, continued diarrhea, abnormal vital signs) requiring intravenous medication and/or fluids 8. Admitting History and Physical - Admission Chief Complaint: Ms. Guan is a 69 yo woman who presents to [facility] requesting admission to detox for alcohol use disorder. History of Present Illness: Ms. Guan is a 69 yo woman who presents to [facility] requesting admission to detox for alcohol use disorder. She was last here in 2016, was in detox, was sober for 2 years post discharge. She relapsed to drinking in 2019 without a clear trigger. PMH: Hypothyroidism, HLD, colitis PSH; none Psych: insomnia: Remeron, h/o depression, no SI, hx SA years ago: OD of pills SOC: lives in [place] roommate Legal: none Substance Use History Alcohol Substance amount: 2 pints rum Frequency of use: Daily Substance route: Oral Date of Last Use: 09/01/20 ( started age 27) No seizures Blackouts, last was in 2014 Admits to eyeopener Vaping/Electronic Cigaret Substance amount: 1 cartridge Frequency of use: Daily Substance route: Vaping Date of Last Use: 09/01/20 (started age 66) - Last Treatment Date of last treatment: 2016 Treatment type: Substance Use Disorder (DONTE) Where was last treatment: Detox History Source: Patient Limitations to Obtaining History: No Limitations - Past Medical History ...LMP: 10/25/98 - Smoking History Smoking history: Current every day smoker Have you smoked in the past 12 months: Yes Aproximately how many cigarettes per day: 6 - Alcohol/Substance Use Hx Alcohol Use: Yes Admission ROS S - HPI Allergies/Adverse Reactions: Allergies Allergy/AdvReac Type Severity Reaction Status Date / Time No Known Allergies Allergy Verified 09/01/20 13:06 Exam Limitations: No Limitations - Ebola screening Have you traveled outside of the country in the last 21 days: No Have you been sick,other than usual withdrawal symptoms: No Do you have a fever: No - Review of Systems Constitutional: Loss of Appetite EENT: reports: Blurred Vision (glasses) Respiratory: reports: No Symptoms reported Cardiac: reports: No Symptoms Reported GI: reports: No Symptoms Reported : reports: No Symptoms Reported Musculoskeletal: reports: No Symptoms Reported Integumentary: reports: No Symptoms Reported Neuro: reports: No Symptoms reported, Other (cane for 2 years, feels light headed at times) Endocrine: reports: Other (sweats) Hematology: reports: No Symptoms Reported Psychiatric: reports: Depressed (prior hx, denies now, no SI) Patient History - Patient Medical History Hx Anemia: No Hx Asthma: No Hx Chronic Obstructive Pulmonary Disease (COPD): No Hx Cancer: No Hx Cardiac Disorders: No Hx Congestive Heart Failure: No Hx Hypertension: No Hx Hypercholesterolemia: Yes (zocor 40mg ) Hx Pacemaker: No HX Cerebrovascular Accident: No Hx Seizures: No Hx Diabetes: No Hx Gastrointestinal Disorders: No Hx Liver Disease: No Hx Genitourinary Disorders: No Hx Sexually Transmitted Disorders: Yes Hx Renal Disease (ESRD): No Hx Thyroid Disease: Yes (HYPOTHYROIDISM 137mcq) Hx Human Immunodeficiency Virus (HIV): No Hx Hepatitis C: No Hx Depression: Yes Hx Suicide Attempt: No Hx Bipolar Disorder: No Hx Schizophrenia: No - Patient Surgical History Past Surgical History: Yes Hx Neurologic Surgery: No Hx Cataract Extraction: No Hx Cardiac Surgery: No Hx Lung Surgery: No Hx Breast Surgery: No Hx Breast Biopsy: No Hx Abdominal Surgery: No Hx Appendectomy: No Hx Cholecystectomy: No Hx Genitourinary Surgery: No Hx Section: No Hx Orthopedic Surgery: No Hx Hysterectomy: No Other Surgical History: Sinus sx in 1999 and 2009 Anesthesia Reaction: No - PPD History Date: 01/30/17 Results: 0 mm - Reproductive History Last Menstrual Period: 10/25/98 - Smoking Cessation Smoking history: Current every day smoker Have you smoked in the past 12 months: Yes Aproximately how many cigarettes per day: 6 Cigars Per Day: 0 Hx Chewing Tobacco Use: No Initiated information on smoking cessation: Yes 'Breaking Loose' booklet given: 09/01/20 Admission Physical Exam [facility] - Vital Signs Vital Signs: 123/71, 89, 12, 97.5, 96% O2 sat UDS: all neg CHANTALE: 0.046 - Physical General Appearance: Yes: No Apparent Distress, Nourished, Appropriately Dressed HEENTM: Yes: EOMI, Hearing grossly Normal, Normocephalic, Normal Voice Respiratory: Yes: Lungs Clear, No Respiratory Distress, No Accessory Muscle Use Neck: Yes: Within Normal Limits, Supple Breast: Yes: Breast Exam Deferred Cardiology: Yes: Regular Rhythm, Regular Rate Abdominal: Yes: Normal Bowel Sounds, Non Tender, Flat, Soft Genitourinary: Yes: Other (deferred) Back: Yes: Normal Inspection Musculoskeletal: Yes: Gait Steady (with use of a cane) Extremities: Yes: Normal Inspection, Non-Tender Neurological: Yes: Alert, Normal Response Integumentary: Yes: Normal Color, Dry, Warm - Diagnostic (1) Alcohol dependence with uncomplicated withdrawal Current Visit: Yes Status: Acute Comment: 1. Admit to detox 2. routine labs 3. Librium protocol 4. Education; substance use 5. comfort medication (2) Nicotine dependence Current Visit: No Status: Acute Qualifiers: Nicotine product type: cigarettes Substance use status: in withdrawal Qualified Code(s): F17.213 - Nicotine dependence, cigarettes, with withdrawal (3) Hypercholesteremia Current Visit: No Status: Chronic (4) Hypothyroidism Current Visit: No Status: Chronic Qualifiers: Hypothyroidism type: acquired Qualified Code(s): E03.9 - Hypothyroidism, unspecified (5) Depression Current Visit: Yes Status: Chronic Qualifiers: Depression Type: dysthymia Qualified Code(s): F34.1 - Dysthymic disorder Cleared for Admission [facility] - Detox or Rehab [facility] Level of Care: Medically Managed Detox Regimen/Protocol: Librium Breathalyzer - Breathalyzer Breathalyzer: 0.046 Urine Drug Screen - Test Device Lot number: [id number] Expiration date: 03/02/22 - Control Is test valid?: Yes - Results Drug screen NEGATIVE: Yes Inpatient Rehab Admission - Rehab Decision to Admit Inpatient rehab admission?: No
[2020-09-01] MEDS ORDERED: MAGNESIUM HYDROX 2400MG/30ML ORAL SUSPENSION 30 ML CUP PO PRN (12:55)
[2020-09-01] MEDS ORDERED: ONDANSETRON *ODT* 4 MG TABLET SL PRN (12:55)
[2020-09-01] MEDS ORDERED: METHOCARBAMOL 500 MG TABLET PO PRN (12:55)
[2020-09-01] MEDS ORDERED: MENTHOL/PHENOL 1 EACH UD MM PRN (12:55)
[2020-09-01] MEDS ORDERED: IBUPROFEN 400 MG TABLET (FP) PO PRN (12:55)
[2020-09-01] MEDS ORDERED: MAGNESIUM CITRATE 300 ML BOTTLE PO PRN (12:55)
[2020-09-01] MEDS ORDERED: BISMUTH SUBSALICYLATE 262 MG/15 ML BTL PO PRN (12:55)
[2020-09-01] MEDS ORDERED: NICOTINE POLACRILEX 2 MG GUM BUC PRN (12:55)
[2020-09-01] MEDS ORDERED: MAG HYDROX/AL HYDROX/SIMETH 30 ML UNIT-DOSE CUP PO PRN (12:55)
[2020-09-01] MEDS ORDERED: ACETAMINOPHEN 325 MG TABLET (FP) PO PRN ×2 (12:55)
[2020-09-01 13:11] VITALS: BMI 28.5
[2020-09-01] MEDS: chlordiazePOXIDE HCL 25 MG CAPSULE PO PRN (14:36)
[2020-09-01] MEDS: hydrOXYzine PAMOATE 25 MG CAPSULE (FP) PO SCH ×3 (14:36→22:26)
--- OUTSIDE RECORDS SUMMARY | 2020-09-01 15:06 | XMS ---
:1950 Author Organization [facility] Care Team Providers Name Role Phone Jus Martin Unavailable Unavailable Issack, Jus Unavailable Unavailable Issack, Jus Unavailable Unavailable SAMY TONY Unavailable Unavailable Rosina Caruso ([facility] [place] Unavailable MARCHWINSKI Unavailable Unavailable Abhyankar Unavailable Unavailable [...] is protected by Article 27-F of the [facility] Public Health law. If you continue you may haveaccess to information: Regarding HIV / AIDS; Provided by facilities licensed or operated by the [facility] Office of Mental Health; or Provided by the [facility] Office for People With Developmental Disabilities. If such information is present, then the following [facility] mandated warning applies: This information has been [...] law may result in a fine or mcfp sentence or both. A general authorization for the release of medical or other information is NOT sufficient authorization for further disclosure. Allergies and Adverse Reactions Type Description Substance Reaction Status Data Source(s ) SYSTEMIC NO KNOWN ALLERGIES NO KNOWN ALLERGIES The [facility] Encounters Encounter Providers Location Date Indications Data Source(s ) Outpatient Attender: Jagruti 08/12/2020 The [facility] 05:05:50 PM [facility] EDT Patient admitted. Outpatient Attender: 08/12/2020 04:00:51 PM The [facility] Patient admitted. Outpatient Attender: 08/05/2020 09:44:08 AM The [facility] Patient admitted. Outpatient Attender: 07/25/2020 01:20:24 PM The [facility] - 07/25/2020 [facility] 02:25:52 PM EDT Patient admitted. Outpatient Attender: Jagruti 07/05/2020 09:29:53 AM The [facility] Patient admitted. Outpatient Attender: KENIA 06/03/2020 11:34:28 AM The [facility] Patient admitted. Outpatient Attender: Jagruti 05/24/2020 01:54:32 PM The [facility] Patient admitted. Outpatient Attender: Eddie Hopper 05/04/2020 02:33:24 PM The [facility] 05/04/2020 [facility] 03:41:51 PM EDT Patient admitted. Outpatient Attender: Jagruti 05/02/2020 10:58:44 AM The [facility] Patient admitted. Outpatient Attender: Jus Martin 04/20/2020 12:39:32 PM The [facility] Family Health Patient admitted. Outpatient Attender: IVORY 04/15/2020 09:59:00 AM The [facility] Family [facility] Patient admitted. Outpatient Attender: IVORY 04/13/2020 06:12:07 PM The [facility] ED Family Health Patient admitted. Outpatient Attender: KENIA 04/07/2020 09:59:13 AM The [facility] ED Family [facility] Patient admitted. Outpatient Attender: SAMY 03/28/2020 03:27:58 PM The [place] [facility] EDT Family Health Patient admitted. Outpatient Attender: Sendy 03/17/2020 09:30:51 AM The [facility] - 03/17/2020 Family [facility] e[facility] 06:30:27 PM EDT Patient admitted. Outpatient Attender: Sendy 03/15/2020 11:07:37 AM The [facility] - 03/16/2020 Family [facility] 01:21:54 PM EDT Patient admitted. Outpatient Attender: Sendy 03/14/2020 01:23:57 PM The [facility] - 03/19/2020 Family [facility] ealth 12:30:17 PM EDT Patient admitted. Outpatient Attender: Jagruti 02/17/2020 12:00:00 AM The [facility] Family [facility] Patient admitted. Outpatient Attender: SAMY 12/31/2019 11:27:11 AM The [place] [facility] EST Family Health Patient admitted. Outpatient Attender: SAMY 12/29/2019 09:49:50 AM The [place] [facility] EST Family Health Patient admitted. Outpatient Attender: Rosina Caruso 11/24/2019 08:49:18 AM The [place] For EST Family Health Patient admitted. Outpatient Attender: SAMY 11/20/2019 12:22:27 PM The [place] [facility]REACH EST Family Health Patient admitted. Outpatient Attender: Rosina Caruso 11/16/2019 02:56:30 PM The [place] For EST Family Health Patient admitted. Outpatient Attender: Jagruti 11/16/2019 10:44:07 AM The [facility] Family Health Patient admitted. Outpatient Attender: SAMY 11/13/2019 12:23:22 PM The [place] For OUTREACH EST Family Health Patient admitted. Outpatient Attender: SAMY 11/03/2019 03:23:52 PM The [facility] EST [facility] Patient admitted. Outpatient Attender: Jagruti 09/25/2019 12:31:57 PM The [facility] Patient admitted. Outpatient Attender: Jagruti 07/17/2019 08:39:35 AM The [facility] EDT - 07/17/2019 Family H ealth 12:39:59 PM EDT Patient admitted. Outpatient Attender: Jagruti 07/16/2019 09:37:50 AM The [facility] Patient admitted. Immunizations Vaccine Date Status Description Data Source(s) Quadrivalent 07/25/2020 completed Quadrivalent 07/25/2020 Th e [place] Influenza 12:00:00 AM Influenza For Fami ly [...] Brand Start Product Dose Route Administrative Pharmacy [facility] Indications Reaction Description Data Name Date Form Instructions Instructions Source(s) Levothyroxi levoth Oral active Other Take O NE The ne Sodium yroxin 2020 ug specified tablet ( 150 [place] 0.15 MG e 150 12:00: hypothyroidi mcg to lainey) For Family Oral Tablet MCG 00 AM sm by mouth Hea lth levothyroxi Oral EDT daily ne 150 MCG tablet Oral tablet Other specified hypothyroidism atorvastatin Atorvastatin 07/25/2020 40 Oral active Other Take The 40 MG Oral Calcium 40 MG 12:00:00 AM mg hyperlip idemia ONE [place] Tablet Oral Tab EDT tablet For Fam renetta Atorvastatin (40 mg Healt h Calcium 40 MG total) Oral Tab by mouth daily Other hyperlipidemia Levothyroxine Levothyroxine 07/25/2020 137 Oral abort ed Hypothyroidism, Take The Sodium 0.137 Sodium 137 MCG 12:00:00 AM ug unspe cified type ONE [place] MG Oral Tablet Oral Tab EDT tablet For Family Levothyroxine (137 Health Sodium 137 MCG mcg Oral Tab total) by mouth daily Hypothyroidism, unspecified type Amlodipine 5 amLODIPine 5 07/25/2020 5 Oral active Essent ial Take The MG Oral MG Oral 12:00:00 AM mg hypertension ONE [place] Tablet tablet EDT tablet For Famil y amLODIPine 5 (5 mg Health MG Oral total) tablet by mouth daily Essential hypertension Mirtazapine Mirtazapine 07/25/2020 45 Oral active Severe Take The 45 MG Oral 45 MG Oral 12:00:00 AM mg episode of ONE [place] Tablet Tab EDT recurrent tablet For Fa ambrosio major (45 mg Health depressive total) disorder, by without mouth psychotic daily features (HCC) Severe episode of recurrent major depres sive disorder, without psychotic features (HCC) Potassium Potassium 07/05/2020 20 Oral active Hypokalemia Take The Chloride 20 Chloride ER 12:00:00 AM meq ONE [place] MEQ 20 MEQ Oral EDT tablet For Fa ambrosio Extended Tab CR (20 mEq Health Release total) Oral Tablet by Potassium mouth Chloride ER daily 20 MEQ Oral Tab CR Hypokalemia Amlodipine 5 amLODIPine 5 05/24/2020 5 Oral aborted Essen tial Take The MG Oral MG Oral 12:00:00 AM mg hypertension ONE [place] Tablet tablet EDT tablet For Famil y amLODIPine 5 (5 mg Health MG Oral total) tablet by mouth daily Essential hypertension Take ONE tablet (5 mg total) by mouth da renetta Levothyroxine Levothyroxine 05/24/2020 137 Oral abort ed Hypothyroidism, Take The Sodium 0.137 Sodium 137 MCG 12:00:00 AM ug unspe cified type ONE [place] MG Oral Tablet Oral Tab EDT tablet For Family Levothyroxine (137 Health Sodium 137 MCG mcg Oral Tab total) by mouth daily Hypothyroidism, unspecified type Take ONE tablet (137 mcg total) by mouth daily 24 HR Budesonide 9 05/16/2020 active The Budesonide 9 MG Oral 12:00:00 AM [place] MG Extended TABLET SR 24 EDT For Family Release Oral HR Health Tablet Budesonide 9 MG Oral TABLET SR 24 HR Sertraline Sertraline 05/03/2020 25 Oral aborted Recurrent Take The 25 MG Oral HCl (ZOLOFT) 12:00:00 AM mg major ONE [place] Tablet 25 MG Oral EDT depressive tablet [...] 12:00:00 AM ug unspe cified type ONE [place] MG Oral Tablet Oral Tab EDT tablet For Family Levothyroxine (112 Health Sodium 112 MCG mcg Oral Tab total) by mouth daily Hypothyroidism, unspecified type Take ONE tablet (112 mcg total) by mouth daily Potassium Potassium 05/03/2020 20 Oral aborted Hypokalemia Take The Chloride 20 Chloride ER 12:00:00 AM meq ONE [place] MEQ 20 MEQ Oral EDT tablet For Fa ambrosio Extended Tab CR (20 mEq Health Release total) Oral Tablet by Potassium mouth Chloride ER daily 20 MEQ Oral Tab CR Hypokalemia Take ONE tablet (20 mEq total) by mouth daily Loperamide loperamide 2 04/27/2020 2 mg completed 2 mg The Hydrochloride 2 MG Oral 12:00:00 AM [place] MG Oral Tablet tablet EDT For Family loperamide 2 MG Heal th Oral tablet 2 mg atorvastatin Atorvastatin 02/17/2020 40 Oral aborted Other Take The 40 MG Oral Calcium 40 MG 12:00:00 AM mg hyperlip idemia ONE [place] Tablet Oral Tab EDT tablet For Fam renetta Atorvastatin (40 mg Healt h Calcium 40 MG total) Oral Tab by mouth daily Other hyperlipidemia Take ONE tablet (40 mg total) by mouth d aily Amlodipine amLODIPine 02/17/2020 5 Oral completed Essenti al Take The 5 MG Oral 5 MG Oral 12:00:00 AM mg hypertension ONE [place] Tablet tablet EDT tablet For Famil y amLODIPine (5 mg Health 5 MG Oral total) tablet by mouth daily Essential hypertension Take ONE tablet (5 mg total) by mouth da rneetta Levothyroxine Levothyroxine 02/17/2020 137 Oral compl eted Other specified Take The Sodium 0.137 Sodium 137 MCG 12:00:00 AM ug hypot hyroidism ONE [place] MG Oral Tablet Oral Tab EDT tablet For Family Levothyroxine (137 Health Sodium 137 MCG mcg Oral Tab total) by mouth daily Other specified hypothyroidism Take ONE tablet (137 mcg total) by mouth daily Mirtazapine Mirtazapine 02/17/2020 45 Oral aborted Severe Take The 45 MG Oral 45 MG Oral 12:00:00 AM mg episode of ONE [place] Tablet Tab EDT recurrent tablet For Fa ambrosio major (45 mg Health depressive total) disorder, by without mouth psychotic daily features (HCC) Severe episode of recurrent major depres sive disorder, without psychotic features (HCC) Take ONE tablet (45 mg total) by mouth d aily Blood [id number] 02/17/2020 active Essential Dispense The Pressure 12:00:00 AM hypertension e lectronic [place] Monitor EDT Blood For Family Does not [...] Oral 12:00:00 AM mg episode of ONE [place] Tablet Tab EST recurrent tablet For Fa ambrosio major (45 mg Health depressive total) disorder, by without mouth psychotic daily features (HCC) Severe episode of recurrent major depres sive disorder, without psychotic features (HCC) Take ONE tablet (45 mg total) by mouth d safia Levothyroxine Levothyroxine 11/16/2019 137 Oral compl eted Other specified Take The Sodium 0.137 Sodium 137 MCG 12:00:00 AM ug hypot hyroidism ONE [place] MG Oral Tablet Oral Tab EST tablet For Family Levothyroxine (137 Health Sodium 137 MCG mcg Oral Tab total) by mouth daily Other specified hypothyroidism Take ONE tablet (137 mcg total) by mouth daily Fluoxetine 40 FLUoxetine HCl 09/25/2019 completed TK ONE The MG Oral 40 MG Oral Cap 12:00:00 AM C PO [place] Capsule EDT QD For Family FLUoxetine HCl Healt h 40 MG Oral Cap TK ONE C PO QD Mirtazapine Mirtazapine 09/25/2019 45 Oral completed Sever e Take The 45 MG Oral 45 MG Oral 12:00:00 AM mg episode of ONE [place] Tablet Tab EDT recurrent tablet For Fa ambrosio major (45 mg Health depressive total) disorder, by without mouth psychotic daily features (HCC) Severe episode of recurrent major depres sive disorder, without psychotic features (HCC) Take ONE tablet (45 mg total) by mouth d aily Naltrexone Naltrexone 07/17/2019 50 Oral active Alcohol Take The hydrochloride HCl 50 MG 12:00:00 AM mg abuse ONE [place] 50 MG Oral Oral Tab EDT tablet For Family Tablet (50 mg Health Naltrexone HCl total) 50 MG Oral Tab by mouth daily for 14 days Alcohol abuse Folic folic 07/17/2019 1 mg Oral completed Alcohol Take ONE The Acid 1 MG acid 1 MG 12:00:00 AM abuse ta blet [place] Oral Oral EDT (1 mg For Family Tablet tablet total) Health folic by mouth acid 1 MG daily Oral tablet Alcohol abuse Take ONE tablet (1 mg total) by mouth da ernetta Thiamine thiamine 07/17/2019 100 Oral completed Alcohol [...] MCG 12:00:00 AM ug hypot hyroidism ONE [place] MG Oral Tablet Oral Tab EDT tablet For Family Levothyroxine (137 Health Sodium 137 MCG mcg Oral Tab total) by mouth daily Other specified hypothyroidism Take ONE tablet (137 mcg total) by mouth daily atorvastatin Atorvastatin 03/27/2019 40 Oral completed Oth er Take The 40 MG Oral Calcium 40 MG 12:00:00 AM mg hyperlip idemia ONE [place] Tablet Oral Tab EDT tablet For Fam renetta Atorvastatin (40 mg Healt h Calcium 40 MG total) Oral Tab by mouth daily Other hyperlipidemia Take ONE tablet (40 mg total) by mouth d aily Folic folic 03/27/2019 1 mg Oral aborted Alcohol Take O NE The Acid 1 MG acid 1 MG 12:00:00 AM abuse ta blet [place] Oral Oral EDT (1 mg For Family [...] Oral 12:00:00 AM mg episode of ONE [place] Tablet Tab EDT recurrent tablet For Julia [...] 12:00:00 AM mg episode of c apsule [place] Delayed Oral EDT recurrent (60 mg For [...] (ABILIFY) 10 12:00:00 AM mg 10 mg [place] Tablet MG Oral Tab EDT by For Julia valente Aripiprazole mouth Health (ABILIFY) 10 MG Oral Tab Take 10 mg by mouth Insurance Providers Payer name Policy type Policy ID Covered Covered constitution party's Policy P migdalia / Coverage constitution party ID relationship to Jaffe Inf ormation type jaffe MEDICAID [id number] SP [id number] ADRIAN [id number] SP [id number] MEDICARE ADV PLAN ADRIAN CARE Medicare/Med [id number] [facility] Managed Care ADRIAN CARE [id number] Self [id number] ADRIAN CARE [id number] Self [id number] ADRIAN CARE Medicare/Med [id number] [facility] Managed Care ADRIAN CARE [id number] Self [id number] ADRIAN CARE Medicare/Med [id number] [facility] Managed Care Problems, Conditions, and Diagnoses Code Display Name Description Problem Type Effective Data Dates Source(s) K52.832 Lymphocytic colitis Lymphocytic colitis [id number] The 12:00:00 AM [place] EDT For [facility] Lab Results Lab Results Diagnosis 08/12/2020 The 05:05:50 PM [place] EDT For [facility] Z23 Encounter for Encounter for Diagnosis 07/25/2020 The immunization immunization 01:20:24 PM [place] EDT For [facility] I10 Essential (primary) Essential (primary) Diagnosis 020 The hypertension hypertension 01:20:24 PM [place] EDT For [facility] F33.2 Major depressive Major depressive Diagnosis 07/25/2020 Th e disorder, recurrent disorder, recurrent 01:20:2 4 PM [place] severe without severe without EDT For Julia valente psychotic features psychotic features Health Well Exam Well Exam Diagnosis 07/25/2020 The 01:20:24 PM [place] EDT For [facility] Other Other Diagnosis 07/25/2020 The 01:20:24 PM [place] EDT For [facility] E87.6 Hypokalemia Hypokalemia Diagnosis 07/05/2020 The 09:29:53 AM [place] EDT For [facility] Outreach Outreach Diagnosis 06/03/2020 The 11:34:28 AM [place] EDT For [facility] K52.832 Lymphocytic colitis Lymphocytic colitis Diagnosis 020 The 02:28:42 PM [place] EDT For [facility] F32.9 Major depressive Major depressive Diagnosis 05/24/2020 Th e disorder, single disorder, single 01:54:32 PM I nstitute episode, unspecified episode, unspecified EDT For [facility] R19.7 Diarrhea, Diarrhea, Diagnosis 05/04/2020 The unspecified unspecified 02:33:24 PM [place] EDT For [facility] Z53.20 Procedure and Procedure and Diagnosis 05/04/2020 The treatment not treatment not 02:33:24 PM Institu te carried out because carried out because EDT For Family of patient's of patient s Health decision for decision for unspecified reasons unspecified reasons Z11.4 Encounter for Encounter for Diagnosis 05/04/2020 The screening for human screening for human 02:33:2 4 PM [place] immunodeficiency immunodeficiency EDT Fo r Family virus [HIV] virus (HIV) Health F33.41 Major depressive Major depressive Diagnosis 05/02/2020 Th e disorder, recurrent, disorder, recurrent, 10:58 :44 AM [place] in partial remission in partial remission EDT For [facility] Virtual Visit Virtual Visit Diagnosis 05/02/2020 The (Telephone Only) (Telephone Only) 10:58:44 AM I nstitute EDT For [facility] R11.15 Cyclical vomiting Cyclical vomiting Diagnosis 04/20/2020 The syndrome unrelated syndrome unrelated 12:39:32 PM [place] to migraine to migraine EDT For [facility] Case Closure Case Closure Diagnosis 04/15/2020 The 09:59:00 AM [place] EDT For [facility] Missed Appointment Missed Appointment Diagnosis 0 The 06:12:07 PM [place] EDT For [facility] R45.851 Suicidal ideations Suicidal ideations Diagnosis 0 The 09:30:51 AM [place] EDT For [facility] Z20.828 Contact with and Contact with and Diagnosis 03/15/2020 Th e (suspected) exposure (suspected) exposure 11:07 :37 AM [place] to other viral to other [facility] diseases diseases R68.89 Other general Other general Diagnosis 03/14/2020 The symptoms and signs symptoms and signs 01:23:57 PM [place] EDT For [facility] Appointment Reminder Appointment Reminder Diagnosis 12/31 The Call Call 11:27:11 AM [facility] Emergency Room Visit Emergency Room Visit Diagnosis 12/29 The Follow Up Follow Up 09:49:50 AM [place] EST [facility] Depression Depression Diagnosis 11/16/2019 The 02:56:30 PM [place] EST [facility] Z28.21 Immunization not Immunization not Diagnosis 11/16/2019 Th e carried out because carried out because 10:44:0 7 AM [place] of patient refusal of patient refusal EST [facility] Medication Request Medication Request Diagnosis 9 The 10:44:07 AM [place] EST For [facility] Hospital Discharge Hospital Discharge Diagnosis 9 The Appointment Appointment 03:23:52 PM [place] EST [facility] Forms Forms Diagnosis 07/17/2019 The 08:39:35 AM [place] EDT For [facility] Call During Clinic Call During Clinic Diagnosis 9 The Hours Hours 09:37:50 AM [place] EDT For [facility] Surgeries/Procedures Procedure Description Date Indications Data Source(s) AIIV4 VACC AIIV4 VACC Routine 07/25/2020 Need for 07/25/2020 Nee d for The INACTIVATED INACTIVATED 2:45 PM EDT prophylactic 02:45:2 5 PM prophylactic [place] PRSRV FR PRSRV FR vaccination EDT vaccinatio n For Family 0.5ML DOS IM 0.5ML DOS IM and and Health USE USE inoculation inoculation against against influenza influenza Need for prophylactic vaccination and in oculation against influenza TSH, HIGH TSH, HIGH Routine 07/25/2020 Hypothyroidism, 0 Hypothyroidism, The SENSITIVITY SENSITIVITY 2:27 PM EDT unspecified type 02: 27:00 PM unspecified type [place] (SERUM) (SERUM) EDT For [facility] Hypothyroidism, unspecified type COMP COMP Routine 05/04/2020 Hypothyroidism, 05/04/2020 Hy pothyroidism, The METABOLIC METABOLIC 2:50 PM EDT unspecified type 02:50:0 0 PM unspecified type [place] PANEL PANEL EDT For [facility] Hypothyroidism, unspecified type TSH, HIGH TSH, HIGH Routine 05/04/2020 Hypothyroidism, 0 Hypothyroidism, The SENSITIVITY SENSITIVITY 2:50 PM EDT unspecified type 02: 50:00 PM unspecified type [place] (SERUM) (SERUM) EDT For [facility] Hypothyroidism, unspecified type TDAP TDAP Routine 07/17/2019 Need for prophylactic 019 Need for prophylactic The VACCINE VACCINE 9:56 AM EDT vaccination with combined 01 :56:06 PM vaccination with combined [place] 7/> YR SQ IMM [id number] EDT rdbpebdxqj-vsfjuls-znfpcnzcd For Family IM CLINIC (DTP) vaccine (DTP) vacc [facility] Health Need for prophylactic vaccination with c ombined vlrwgmkpuu-[id number] (DTP) vaccine TSH, HIGH TSH, HIGH Routine 07/17/2019 Alcohol 07/17/2019 Alcoho l The SENSITIVITY SENSITIVITY 9:44 AM EDT abuse 01:44:00 PM abuse [place] (SERUM) (SERUM) EDT For [facility] Alcohol abuse HGA1C (HGB HGA1C (HGB Routine 07/17/2019 Alcohol 07/17/2019 Alco hol The GLYCOSYLATED) GLYCOSYLATED) 9:44 AM EDT abuse 01:44:00 PM abuse [place] EDT For [facility] Alcohol abuse LIPID LIPID Routine 07/17/2019 Alcohol 07/17/2019 Alcohol Th e PANEL PANEL 9:44 AM EDT abuse 01:44:00 PM abuse [place] EDT For [facility] Health Alcohol abuse COMP COMP Routine 07/17/2019 Alcohol 07/17/2019 Alcohol Th e METABOLIC METABOLIC 9:44 AM EDT abuse 01:44:00 PM abus e [place] PANEL PANEL EDT For [facility] Alcohol abuse Results ID Date Data Source [id number] 07/25/2020 02:46:50 PM EDT The [facility] Reason for Visit and [...] kg- ) SpO2 97% BMI 30.1 8 kg/o6YmqdfSheryl Torres MA 07/25/2020 2:25 PM SignedI have [...] Marcus Yates Lalita, MD 07/25/2020 2:25 PM SignedPaelia Cruz is a 69 year old femalePatient [...] PSRV FREE, 4YRS+, 0.5 ML, PREFIL LED SYRINGE;FutureJagruti Ahmadi MD [facility] Family PhysicianUNC HealthJagruti Ahmadi MD 07/25/2020 2:39 PM SignedAddended by: JAGRUTI RAMOS on: 07/25/2020 02:39 PM Modules accepted: Celeste Enriquez M A 07/25/2020 2:41 PM Shiraz Cruz at [facility] today to have blood drawn. 1 sst tubessent to [facility]. She tolerated the proc edure well and will return [facility] for results.Joel Odom Erika, MA 07/25/2020 2:41 [...] reviewedTolerated wellEducation materials given and discussed with patient.Fannie Grimm Alexander, LPN 07/25/2020 2:46 PM SignedAddended by: KB GUNDERSON o n: 07/25/2020 02:46 PM Modules [...] 2 07/25/2020 10/23/2020 Class: E Prescribing Ro [place]: Oral Sig: Take ONE tablet (5 mg [...] by: Sheryl Torres MA - ReviewedLevel of Service:64824 OFFIC/OUTPT VISIT E&M EST LOW-MOD SEVER* Historical [...] Supporting Document(s ) ID Date Data Source [id number] 07/26/2020 12:09:00 PM EDT The [facility] Name Value Range Interpretation Code Description Data Megan rce(s) Supporting Document(s ) TSH 13.610 0.234-4.02 Above high normal The Institu te uIU/mL 0 For Family Health ID Date Data Source [id number] 05/24/2020 06:58:39 PM EDT The [facility] Reason for Visit and Comments: Well E xam [1110] Follow-up for: [92] - [facility] , lab resultsVitals (Last Filed):BP 123/65 Pu lse 79 Temp 97.5 F (36.4 C) (Oral) Wt- 188 lb (85.3 kg) SpO2 98% BMI 29 .25 kg/e1UwopdgCeleste Becker MA 05/24/2020 6:58 PM SignedI have identified this patient to be Fouzia Cruz, -1950.Chief ComplaintPatient presents with Well Exam [facility] , lab resultsVitals: 05/24/20 1410BP: 123/65Pulse: 79Temp: 97.5 F (36.4 C)Te mpSrc: OralSpO2: 98%Weight: 188 lb (85.3 kg)Patient reports a pain score of "0-None" in her No pain location entered forpatient.Pharmacy VerifiedNo Recent ER VisitEmelina Odom Lalita, MD 05/24/2020 6:58 PM SignedPatricblank Cruz is a 69 year old femalePatient [...] dailyDispense: 30 tablet; Refill: 2Lmeron Ahmadi MD [facility] Diagnosis:E03.9 Hypothyroidism, unspecified type Other Diagnoses:K52.832 Lymphocytic [...] by: Celeste Becker MA - ReviewedLevel of Service:45758 OFFIC /OUTPT VISIT E&M EST LOW-MOD SEVER* [...] Supporting Document(s ) ID Date Data Source [id number] 05/04/2020 03:41:54 PM EDT The [place] For [facility] Reason for Visit and Comments: Other [0] [...] 4 kg) - SpO2 95% BMI 28.94 kg/t2PuapcEddie Hopper MD 05/04/2020 3:41 PM SignedI have [...] her No pain location entered forpatient.Pharmacy Nedra ifiedAllergies VerifiedER Visit Status= 04/27/20 discharged from [facility] I have identified this patient to be Lavell Cruz, -1950.Lavell Oscarray arana at [facility] today to have blood drawn. 1sst tubes sentto [facility]. Pat ient tolerated the procedure well and will return [facility] for results.Lab beatriz ges was done.Sheryl Torres, MOAPrimary Diagnosis:E87.6 Hypokalemia Other D iagnoses:E03.9 Hypothyroidism, unspecified [...] * 12/23/2019 Class: Historical Med Sig: FLUTICASONE NM OPIONATE, NASAL, 50 * 1 Luis* 5 11/06/2017 Class: E Prescribing Ro [place]: Nasal Sig: TWO Act (100 mcg total) [...] by: Sheryl Torres MA - ReviewedLevel of Service:[id number] OFFIC/OUTPT VISIT E&M EST LOW-MOD SEVER* Historical [...] Supporting Document(s ) ID Date Data Source [id number] 05/05/2020 01:34:00 PM EDT [facility] Name Value Range Interpretation Code Description Data Megan rce(s) Supporting Document(s ) TSH 16.640 0.234-4.02 Above high normal The Institu te uIU/mL 0 [facility] ID Date Data Source [id number] 05/05/2020 08:57:00 AM EDT [facility] Name Value Range Interpretation Description Data Sup porting Code Source(s) Document(s ) PROTEIN, 6.7 g/dL 5.9-8.4 The TOTAL, SERUM [facility] ALBUMIN 3.8 g/dL 3.5-5.2 The [facility] GLOBULIN, 2.9 g/dL 1.7-3.7 The TOTAL [facility] A/G RATIO 1.3 1.1-2.9 The Ratio [facility] SODIUM 138 135-147 The mmol/L [facility] POTASSIUM 4.4 3.5-5.5 The mmol/L [facility] CHLORIDE 101 96-108 The mmol/L [facility] CARBON DIOXIDE 25 22-29 The mmol/L [facility] UREA NITROGEN 9 mg/dL 8-23 The (BUN) [facility] CREATININE 0.82 0.49-1.0 The mg/dL 2 [facility] EGFR 73 >or=60 The mL/min [facility] EGFR 85 >or=60 The ALBANIAN mL/min [facility] BUN/CREATININE 11.0 10.0-28. The RATIO Ratio 0 [facility] CALCIUM 9.0 8.6-10.4 The mg/dL [facility] BILIRUBIN, <0.2 <1.2 The TOTAL mg/dL [facility] ALKALINE 48 U/L 40-156 The PHOSPHATASE [facility] AST (SGOT) 26 U/L <32 The [facility] ALT (SGPT) 13 U/L <33 The [facility] GLUCOSE 101 70-99 Above high normal The mg/dL [facility] ID Date Data Source [id number] 11/16/2019 07:05:55 PM EST [facility] Reason for Visit and Comments: Medica tion Request [386] Well Exam [1110] Other [0] - no recent er visit Cold Symptoms [186]Vi milagros (Last Filed):BP 103/68 (Orthostatic Site : Arm - Right, Orthostatic Po- sition : Sitting, Orthostatic Cuff Size : Adult) Pulse - 74 Temp 98. 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) Borderline personality disorder (HCC) PMB (postmenopausal blee ding) Emergency Room Frequent UserWants to go to rehab for the sH difficulty follow ing up with [facility] to get insurance to pay for rehabCurrently drinking 1 bot tle wine and 1 pint of rum, was not using alcoholduring my visit, but apparently was actively dr inking alcohol while meetingwith mental healthTried to commit suicide in increasing ly suicidal thoughts, but no plan [...] daily Dispense: 30 tablet; Refill: 5Discussed with social media senior associate today poss ibility of getting patient to inpatientrehab.If unable to have scheduled check-in with patient next SaturdayJagruti Ahmadi MD SAttDepartment of Veterans Affairs [facility] PhysicianNovant Health Charlotte Orthopaedic HospitalPr christopher Diagnosis:Z28.21 Refused influenza vaccine Other Diagnoses:F33.2 [...] 5 07/17/2019 10/15/2019 Class: E Prescribing [place]: Oral Sig: Take ONE tablet (100 mg total) by mouth dailyAllergies As of Date: 019(No Known Allergies)Date Reviewed: 11/16/2019Reviewed by: Celeste Becker - [facility] Ser vice:[id number] OFFIC/OUTPT VISIT E&M EST LOW-MOD SEVER* Historical [...] Supporting Document(s ) ID Date Data Source [id number] 07/17/2019 12:45:50 PM EDT [facility] Reason for Visit and [...] 3 kg) - SpO2 95% BMI 32.36 kg/k1Dmbcdj History RecordedSheryl Torres MA 07/17/2019 12:39 PM [...] LIVER2. Diarrhea, unspecified type- CONSULT TO GASTROENTER AJITYLmeron Ahmadi MD SAttDepartment of Veterans Affairs Medical Center-[place] PhysicianNovant Health Charlotte Orthopaedic HospitalDis ussed with patient access to after-hours providers, weekend and eveningcare, and onsite and affiliated resources as well as appropriate use [facility] room service s when needed.Ivory [...] awful might happen: Not at allGAD-7 Total: 1HLNXM7. How often do you have a drink containing alcohol?: 4 or m ore times a week2. How many standard drinks containing alcohol do you have on a typ ical daywhen drinking?: 7, 8, or 93. How often do you have six or more drinks on one oc casion?: Daily or almostdailyI have identified this patient to be Lavell Cruz, DO B -1950.Lavell [facility]akyasmeen at [facility] today to have blood drawn. 1 SST and 1L avender tubes sent to [facility]. She tolerated the procedure well andwill ret urn to the clinic for results.IvoryMariela Gamez Diagnosis:F10.10 A lcohol abuse Other Diagnoses:R19.7 Diarrhea, unspecified type Z23 Need for prophylactic vaccination with xjkhxnyspmapyqepfy-spatfez-evfctbgl s (DTP) vaccine F10.10 Alcohol abuse, uncomplicated [...] by: Jagruti Ahmadi MD - ReviewedLevel of Service:[id number] OFFIC/OUTPT VISIT E&M EST LOW-MOD SEVER* Historical [...] Supporting Document(s ) ID Date Data Source [id number] 07/18/2019 03:46:00 AM EDT [facility] Name Value Range Interpretation Description Data Sup porting Code Source(s) Document(s ) CHOLESTEROL 198 <200 The mg/dL [facility] HDL CHOLESTEROL 74 mg/dL >50 [facility] TRIGLYCERIDES 227 <150 Above high normal The mg/dL [facility] HDL % OF 37 % >14 The CHOLESTEROL [facility] Evaluation: BELOW AVERAGE RISK CHOL/HDL RATIO 2.7 NA <5.8 [facility] Evaluation: BELOW AVERAGE RISK HDL/LDL RATIO 1.07 NA <3.56 [facility] LDL CHOLESTEROL 79 mg/dL <100 [facility] VLDL CHOLESTEROL DAVID 45 mg/dL 7-32 Above high normal T he [facility] NON HDL CHOL. (LDL+VLDL) 124 mg/dL <130 [facility] ID Date Data Source [id number] 07/18/2019 03:46:00 AM EDT [facility] Name Value Range Interpretation Description Data Sup porting Code Source(s) Document(s ) PROTEIN, 7.1 g/dL 5.9-8.4 The TOTAL, SERUM [facility] ALBUMIN 4.3 g/dL 3.5-5.2 The [facility] GLOBULIN, 2.8 g/dL 1.7-3.7 The TOTAL [facility] A/G RATIO 1.5 1.1-2.9 The Ratio [facility] SODIUM 138 135-147 The mmol/L [facility] POTASSIUM 4.0 3.5-5.5 The mmol/L [facility] CHLORIDE 101 96-108 The mmol/L [facility] CARBON DIOXIDE 22 22-29 The mmol/L [facility] UREA NITROGEN 22 mg/dL 8-23 The (BUN) [facility] CREATININE 0.57 0.49-1.0 The mg/dL 2 [facility] EGFR 95 >or=60 The mL/min [facility] EGFR 110 >or=60 The ALBANIAN mL/min [facility] BUN/CREATININE 38.6 10.0-28. Above high normal The RATIO Ratio 0 [facility] CALCIUM 9.2 8.6-10.4 The mg/dL [facility] BILIRUBIN, 0.6 <1.2 The TOTAL mg/dL [facility] ALKALINE 62 U/L 40-156 The PHOSPHATASE [facility] AST (SGOT) 38 U/L <32 Above high normal The [facility] ALT (SGPT) 31 U/L <33 The [facility] GLUCOSE 77 mg/dL 70-99 [facility] ID Date Data Source [id number] 07/18/2019 03:33:00 AM EDT [facility] Name Value Range Interpretation Code Description Data Megan rce(s) Supporting Document(s ) TSH 4.800 0.338-3.91 Above high normal The Institu te uIU/mL [facility] NOTE: New reference range for TSH implem ented on 06-03-19. ID Date Data Source [id number] 07/18/2019 12:38:00 AM EDT [facility] Name Value Range Interpretation Description Data Sup porting Code Source(s) Document(s ) HEMOGLOBIN A1C 5.4 % <5.7 The [facility] HEMOGLOBIN A1c AND eAG REFERENCE RANGES A1c(%) DIABETES CATEGORY* <5.7 Normal (non-diabetic) 5.7-6.[address] of diabetes =>6.5 Consistent with diabetes A1c(%) eAG(ESTIMATED AVERAGE PLASMA GLUCOSE)(mg/dL) 6 126 7 154 8 183 9 212 10 240 11 269 12 298 *recom mended ranges-[place] [employer](2010) NOTE: The amount of gl [...] Alcohol intake 07/25/2020 Current completed Current [facility] [place] 12:00:00 AM non-drinker non-drinker of For Fami ly EDT of alcohol alcohol (finding) Health (finding) Tobacco use and 07/25/2020 Never used completed Never used The Insti tute exposure 12:00:00 AM For Family EDT Health Cigarettes 07/25/2020 UNK completed [facility] smoked current 12:00:00 AM For Famil y (pack per day) - EDT Health Reported Smoking 07/25/2020 Current every completed Current every day [facility] 12:00:00 AM day smoker smoker For Family EDT Health Alcohol intake 05/24/2020 Current completed Current [facility] [place] 12:00:00 AM non-drinker non-drinker of For Fami ly EDT of alcohol alcohol (finding) Health (finding) Cigarettes 05/04/2020 UNK [facility] smoked current 12:00:00 AM For Famil y (pack per day) - EDT Health Reported Alcohol intake 05/04/2020 Current [facility] [place] 12:00:00 AM non-drinker For Family EDT of alcohol Health (finding) Tobacco use and 05/04/2020 Never used The Insti tute exposure 12:00:00 AM For Family EDT Health Tobacco smoking 05/04/2020 Current every The In stitute status NHIS 12:00:00 AM day smoker For Family EDT Health Cigarettes 11/16/2019 UNK [facility] smoked current 12:00:00 AM For Famil y (pack per day) - EST Health Reported Tobacco use and 11/16/2019 Never used The Insti tute exposure 12:00:00 AM For Family EST Health Tobacco smoking 11/16/2019 Current every The In stitute status NHIS 12:00:00 AM day smoker For Family EST Health Alcohol intake 11/16/2019 Current The Instit [place] 12:00:00 AM non-drinker For Family EST of alcohol Health (finding) Alcohol intake 07/17/2019 Current completed The Instit [place] 12:00:00 AM non-drinker For Family EDT of alcohol Health (finding) Tobacco smoking 07/17/2019 Current every completed Current every day [facility] status NHIS 12:00:00 AM day smoker smoker For Family EDT Health Cigarettes 07/17/2019 UNK completed [facility] smoked current 12:00:00 AM For Famil y (pack per day) - EDT Health Reported Vital Signs ID Date Data Source UNK Name Value Range Interpretation Code Description Data Source(s) Oxygen saturation 97 % 97 % The Ins titute in Arterial blood For Fam renetta by Pulse oximetry [facility] Body mass index 30.18 kg/m2 30.18 kg/m2 The Ins titute (BMI) [Ratio] For [facility] Body weight 87.998 kg 87.998 kg The [facility] Body temperature 36.33 Kimi 36.33 Kimi The Inst itute For [facility] Heart rate 78 /min 78 /min The [facility] Diastolic blood 70 mm[Hg] 70 mm[Hg] The Insti tute pressure For Family Health Systolic blood 126 mm[Hg] 126 mm[Hg] The Instit [place] pressure For [facility] Oxygen saturation 98 % 98 % The Ins titute in Arterial blood For Fam renetta by Pulse oximetry Health Body weight 85.276 kg 85.276 kg The [facility] Body temperature 36.39 Kimi 36.39 Kimi The Inst itute For [facility] Heart rate 79 /min 79 /min The [facility] Diastolic blood 65 mm[Hg] 65 mm[Hg] The Insti tute pressure For Family Health Systolic blood 123 mm[Hg] 123 mm[Hg] The Instit [place] pressure For [facility] Oxygen saturation 95 % 95 % The Ins titute in Arterial blood For Shilo jackson by Pulse oximetry [facility] Body weight 84.369 kg 84.369 kg The [facility] Body temperature 36.83 Kimi 36.83 Kimi The Inst itute For [facility] Heart rate 86 /min 86 /min [facility] Diastolic blood 78 mm[Hg] 78 mm[Hg] The Insti tute pressure For Family Health Systolic blood 118 mm[Hg] 118 mm[Hg] The Instit [place] pressure For [facility] Oxygen saturation 96 % 96 % The Ins titute in Arterial blood For Shilo jackson by Pulse oximetry [facility] Body weight 92.534 kg 92.534 kg [facility] Body temperature 36.78 Kimi 36.78 Kimi The Inst itute For [facility] Heart rate 74 /min 74 /min The [facility] Diastolic blood 68 mm[Hg] 68 mm[Hg] The Insti tute pressure For [facility] Systolic blood 103 mm[Hg] 103 mm[Hg] The Instit [place] pressure For [facility] Oxygen saturation 95 % 95 % The Ins titute in Arterial blood For Shilo jackson by Pulse oximetry [facility] Body mass index 32.36 kg/m2 32.36 kg/m2 The Ins titute (BMI) [Ratio] For [facility] Body weight 94.348 kg 94.348 kg [facility] Measured [facility] Body temperature 36.94 Kimi 36.94 Kimi The Inst itute For [facility] Health Heart rate 81 /min 81 /min The [facility] Diastolic blood 75 mm[Hg] 75 mm[Hg] The Insti tute pressure For [facility] Health Systolic blood 126 mm[Hg] 126 mm[Hg] The Instit [place] pressure For Family Health Patient Treatment Plan of Care Planned Activity Planned Date Details Description Data Source (s) Levothyroxine Sodium 0.15 08/12/2020 12:00:00 [facility] MG Oral Tablet AM [facility] Mirtazapine 45 MG Oral 07/25/2020 12:00:00 [facility] Tablet AM [facility] Amlodipine 5 MG Oral 07/25/2020 12:00:00 [facility] Tablet AM [facility] atorvastatin 40 MG Oral 07/25/2020 12:00:00 [facility] Tablet AM [facility] Levothyroxine Sodium 07/25/2020 12:00:00 [facility] For 0.137 MG Oral Tablet AM [facility] Potassium Chloride 20 MEQ 07/05/2020 12:00:00 [facility] Extended Release Oral AM [facility] Tablet Amlodipine 5 MG Oral 05/24/2020 12:00:00 [facility] Sodium 05/24/2020 12:00:00 [facility] 0.137 MG Oral Tablet AM [facility] 24 HR Budesonide 9 MG 05/16/2020 12:00:00 [facility] Extended Release Oral AM [facility] Tablet Sertraline 25 MG Oral 05/03/2020 12:00:00 [facility] Tablet AM [facility] Potassium Chloride 20 MEQ 05/03/2020 12:00:00 [facility] Extended Release Oral AM [facility] Tablet Blood Pressure Monitor 02/17/2020 12:00:00 [facility] Does not apply Kit AM [facility] Family [facility] atorvastatin 40 MG Oral 02/17/2020 12:00:00 [facility] Tablet AM [facility] Mirtazapine 45 MG Oral 02/17/2020 12:00:00 [facility] Tablet AM [facility] duloxetine 60 MG Delayed 12/23/2019 12:00:00 [facility] Release Oral Capsule AM [facility] Folic Acid 1 MG Oral 07/17/2019 12:00:00 [facility] Tablet AM [facility] Thiamine 100 MG Oral 07/17/2019 12:00:00 [facility] Tablet AM [facility] Naltrexone hydrochloride 07/17/2019 12:00:00 [facility] For 50 MG Oral Tablet AM [facility] lt atorvastatin 40 MG Oral 03/27/2019 12:00:00 [facility] dul[facility] 60 MG Delayed 03/27/2019 12:00:00 [facility] Release Oral Capsule AM [facility] Levothyroxine Sodium 03/27/2019 12:00:00 [facility] 0.137 MG Oral Tablet AM [facility] Mirtazapine 45 MG Oral 03/27/2019 12:00:00 [facility] Tablet AM [facility] Thiamine 100 MG Oral 03/27/2019 12:00:00 [facility] Tablet AM [facility] Folic Acid 1 MG Oral 03/27/2019 12:00:00 [facility] Tablet AM [facility]
--- NOTE | 2020-09-01 15:19 | CONSULT ---
[facility] Psychiatric Consult - Data Date of interview: 09/01/20 Admission source: [facility] Identifying data: Patient is a 69 year old single female, without children, unemployed, domiciled, and is supported with SSI benefits. This is one of multiple admissions for patient. Patient admitted to for alcohol dependence. Substance Abuse History: Substance Use History. Alcohol. Substance amount: 2 pints rum. Frequency of use: Daily. Substance route: Oral. Date of Last Use: 09/01/20 ( started age 27). No seizures. Blackouts, last was in 2014. Admits to eyeopener. Vaping/Electronic Cigaret. Substance amount: 1 cartridge. Frequency of use: Daily. Substance route: Vaping. Date of Last Use: 09/01/20 (started age 66). - Last Treatment. Date of last treatment: 2016. Treatment type: Substance Use Disorder (DONTE). Where was last treatment: Detox. History Source: Patient. Limitations to Obtaining History: No Limitations Medical History: Hypothyroidism, HLD, colitis Psychiatric History: Patient's first psychiatric contact was at 29 years of age after she was admitted to [facility] for depression. Ms. Guan was diagnosed with depression and treated with psychotropic medications. Throughout the years Ms. Guan reports history of multiple psychiatric hospitalizations at [facility] + and most recently at [facility] in November of 2019 due to alcohol dependence and depression. Ms. Guan reports past treatment with all SSRI's which she states were ineffective. Patient is not followed by an outpatient psychiatrist but has received outpatient psychiatric care in the past [facility]. Patient states that she is currently prescribed remeron 45mg by her PCP. She reports taking remeron for approximately five years. No history of suicide attempt. At present patient reports stable mood. Physical/Sexual Abuse/Trauma History: denies. Mental Status Exam - Mental Status Exam Alert and Oriented to: Time, Place, Person Cognitive Function: Good Patient Appearance: Well Groomed Mood: Hopeful Affect: Appropriate Patient Behavior: Appropriate, Cooperative Speech Pattern: Appropriate Voice Loudness: Normal Thought Process: Goal Oriented Thought Disorder: Not Present Hallucinations: Denies Suicidal Ideation: Denies Homicidal Ideation: Denies Insight/Judgement: Poor Sleep: Fair Appetite: Fair Muscle strength/Tone: Normal Gait/Station: Other (Patient ambulates with a cane.) Psychiatric Findings - Problem List (Independence 1, 2,3) (1) History of depression Current Visit: Yes Status: Chronic (2) Alcohol dependence with uncomplicated withdrawal Current Visit: Yes Status: Acute Comment: 1. Admit to detox 2. routine labs 3. Librium protocol 4. Education; substance use 5. comfort medication (3) Nicotine dependence Current Visit: Yes Status: Chronic Qualifiers: Nicotine product type: cigarettes Substance use status: in withdrawal Qualified Code(s): F17.213 - Nicotine dependence, cigarettes, with withdrawal - Initial Treatment Plan Initial Treatment Plan: Psychoeducation provided. Detoxification in progress. Will order Remeron 45mg HS. Benefits and side effects discussed. Verbal consent given.
[2020-09-01 17:03] LABS: HEMATOCRIT 37.7 % (32.4-45.2); HEMOGLOBIN 12.8 GM/dL (10.7-15.3); MCH 34.3 pg (25.7-33.7); MCHC 34.1 g/dl (32.0-36.0); MEAN CELL VOLUME 100.5 fl (80-96); MEAN PLT VOLUME 8.6 fl (7.5-11.1); PLATELET COUNT 293 K/MM3 (134-434); RBC 3.75 M/mm3 (3.60-5.2); RDW 14.5 % (11.6-15.6); WHITE BLOOD COUNT 7.4 K/mm3 (4.0-10.0)
[2020-09-01 17:17] LABS: ALBUMIN 3.2 g/dl (3.4-5.0); BILIRUBIN,TOTAL 0.5 mg/dL (0.2-1); CREATININE 0.7 mg/dL (0.55-1.3); POTASSIUM 3.4 mmol/L (3.5-5.1)
[2020-09-01] MEDS: chlordiazePOXIDE HCL 25 MG CAPSULE PO SCH ×2 (17:43→22:25)
[2020-09-01] MEDS: THIAMINE HCL 100 MG TABLET (FP) PO SCH (22:25)
[2020-09-01] MEDS: MIRTAZAPINE 15 MG TABLET (FP) PO SCH (22:26)
[2020-09-01] MEDS: MELATONIN 5 MG TABLETS PO SCH (22:26)
[2020-09-01] MEDS: ATORVASTATIN CA 40 MG TABLET (FP) PO SCH (22:26)
[2020-09-02] MEDS: chlordiazePOXIDE HCL 25 MG CAPSULE PO SCH ×4 (06:01→22:06)
[2020-09-02] MEDS: hydrOXYzine PAMOATE 25 MG CAPSULE (FP) PO SCH ×5 (06:01→22:06)
[2020-09-02] MEDS: LEVOTHYROXINE 50 MCG, LEVOTHYROXINE 100 MCG PO SCH (06:02)
[2020-09-02] MEDS ORDERED: LEVOTHYROXINE NA 25 MCG TABLET (FP) PO SCH (10:00)
[2020-09-02] MEDS: PRENATAL VITAMINS W/ FOLIC ACID TABLET (FP) PO SCH (10:21)
--- NOTE | 2020-09-02 10:21 | PN ---
[facility] CIWA - CIWA Score Nausea/Vomitin-Mild Nausea/No Vomiting Muscle Tremors: 1-None Visible, but [place] Anxiety: 1-Mildly Anxious Agitation: 1-Slight > Activity Paroxysmal Sweats: 1-Minimal Palms Moist Orientation: 0-Oriented Tacttile Disturbances: 0-None Auditory Disturbances: 0-None Visual Disturbances: 0-None Headache: 2-Mild CIWA-Ar Total Score: 7 [facility] Progress Note (SOAP) Subjective: Pt seen at beside this morning. Pt reports improving alcohol withdrawal symptoms. Pt with no other new complaints this morning. Improved nausea, tremors, anxiety, sweats. Objective: Last Vital Signs Temp Pulse Resp BP Pulse Ox 97.1 F L 79 16 100/54 L 97 09/02/20 08:40 09/02/20 08:40 09/02/20 08:40 09/02/20 08:40 09/02/20 06:52 Gen - NAD, well dev/well nourished, AOx3 CV - RRR, normal s1, s2 Pulm - CTAB, good air entry Mental Status - mild anxiety MSK - gait steady, normal inspection Skin - palms moist Labs CBC,CMP WBC 7.4 K/mm3 (4.0-10.0) 09/01/20 14:15 RBC 3.75 M/mm3 (3.60-5.2) 09/01/20 14:15 Hgb 12.8 GM/dL (10.7-15.3) 09/01/20 14:15 Hct 37.7 % (32.4-45.2) 09/01/20 14:15 MCV 100.5 fl (80-96) H 09/01/20 14:15 MCH 34.3 pg (25.7-33.7) H 09/01/20 14:15 MCHC 34.1 g/dl (32.0-36.0) 09/01/20 14:15 RDW 14.5 % (11.6-15.6) 09/01/20 14:15 Plt Count 293 K/MM3 (134-434) 09/01/20 14:15 MPV 8.6 fl (7.5-11.1) 09/01/20 14:15 Sodium 141 mmol/L (136-145) 09/01/20 14:15 Potassium 3.4 mmol/L (3.5-5.1) L 09/01/20 14:15 Chloride 106 mmol/L (98-107) 09/01/20 14:15 Carbon Dioxide 26 mmol/L (21-32) 09/01/20 14:15 Anion Gap 9 MMOL/L (8-16) 09/01/20 14:15 BUN 18.0 mg/dL (7-18) 09/01/20 14:15 Creatinine 0.7 mg/dL (0.55-1.3) 09/01/20 14:15 Est GFR (CKD-EPI)AfAm 101.74 09/01/20 14:15 Est GFR (CKD-EPI)NonAf 87.78 09/01/20 14:15 Random Glucose 107 mg/dL (74-106) H 09/01/20 14:15 Calcium 9.0 mg/dL (8.5-10.1) 09/01/20 14:15 Total Bilirubin 0.5 mg/dL (0.2-1) 09/01/20 14:15 AST 29 U/L (15-37) 09/01/20 14:15 ALT 45 U/L (13-61) 09/01/20 14:15 Alkaline Phosphatase 61 U/L (45-117) 09/01/20 14:15 Total Protein 7.0 g/dl (6.4-8.2) 09/01/20 14:15 Albumin 3.2 g/dl (3.4-5.0) L 09/01/20 14:15 09/02/20 10:19 Assessment: Pt with improving alcohol withdrawal symptoms. Pt with syphilis serology and RPR +; treated in past. 09/02/20 10:21 09/02/20 10:23 Plan: - Continue with librium detox protocol and comfort medications - Remeron 45 mg hs for sleep, per psychiatry
[2020-09-02] MEDS: NICOTINE 7 MG/24 HOURS TOPICAL PATCH TD SCH (10:23)
[2020-09-02] MEDS ORDERED: LOPERAMIDE HCL 2 MG CAPSULE PO PRN (16:26)
[2020-09-02] MEDS: MELATONIN 5 MG TABLETS PO SCH (22:06)
[2020-09-02] MEDS: THIAMINE HCL 100 MG TABLET (FP) PO SCH (22:06)
[2020-09-02] MEDS: ATORVASTATIN CA 40 MG TABLET (FP) PO SCH (22:06)
[2020-09-02] MEDS: MIRTAZAPINE 15 MG TABLET (FP) PO SCH (22:06)
[2020-09-03] MEDS ORDERED: LEVOTHYROXINE NA 100 MCG TABLET (FP) ONE (04:46)
[2020-09-03] MEDS ORDERED: LEVOTHYROXINE NA 25 MCG TABLET (FP) ONE (04:46)
[2020-09-03] MEDS: chlordiazePOXIDE HCL 25 MG CAPSULE PO SCH ×4 (06:00→22:32)
[2020-09-03] MEDS: LEVOTHYROXINE 50 MCG, LEVOTHYROXINE 100 MCG PO SCH (06:00)
[2020-09-03] MEDS: hydrOXYzine PAMOATE 25 MG CAPSULE (FP) PO SCH ×5 (06:01→22:33)
[2020-09-03] MEDS: NICOTINE 7 MG/24 HOURS TOPICAL PATCH TD SCH (10:33)
[2020-09-03] MEDS: PRENATAL VITAMINS W/ FOLIC ACID TABLET (FP) PO SCH (10:33)
--- NOTE | 2020-09-03 15:22 | PN ---
[facility] CIWA - CIWA Score Nausea/Vomitin-No Nausea/No Vomiting Muscle Tremors: None Anxiety: 2 Agitation: 0-Normal Activity Paroxysmal Sweats: 2 Orientation: 0-Oriented Tacttile Disturbances: 0-None Auditory Disturbances: 0-None Visual Disturbances: 0-None Headache: 2-Mild CIWA-Ar Total Score: 6 [facility] Progress Note (SOAP) Subjective: c/o anxiety, headache, sweats. Objective: 09/03/20 15:21 Vital Signs 09/03/20 09/03/20 08:46 12:48 Temperature 97.2 F L 97.3 F L Pulse Rate 80 74 Respiratory 18 18 Rate Blood Pressure 110/64 133/68 O2 Sat by Pulse 99 Oximetry (%) Assessment: 09/03/20 15:23 AOX3, in no acute respiratory distress. Full ROM, ambulating in the unit. Withdrawal symptoms. Plan: continue detox.
[2020-09-03] MEDS: chlordiazePOXIDE HCL 25 MG CAPSULE PO PRN (20:42)
[2020-09-03] MEDS: MIRTAZAPINE 15 MG TABLET (FP) PO SCH (22:32)
[2020-09-03] MEDS: THIAMINE HCL 100 MG TABLET (FP) PO SCH (22:33)
[2020-09-03] MEDS: MELATONIN 5 MG TABLETS PO SCH (22:33)
[2020-09-03] MEDS: ATORVASTATIN CA 40 MG TABLET (FP) PO SCH (22:33)
[2020-09-04] MEDS ORDERED: chlordiazePOXIDE HCL 10 MG CAPSULE PO PRN
[2020-09-04] MEDS ORDERED: LEVOTHYROXINE NA 25 MCG TABLET (FP) ONE (04:52)
[2020-09-04] MEDS ORDERED: LEVOTHYROXINE NA 100 MCG TABLET (FP) ONE (04:52)
[2020-09-04] MEDS: LEVOTHYROXINE 50 MCG, LEVOTHYROXINE 100 MCG PO SCH (06:48)
[2020-09-04] MEDS: chlordiazePOXIDE HCL 10 MG CAPSULE PO SCH ×4 (06:48→22:12)
[2020-09-04] MEDS: hydrOXYzine PAMOATE 25 MG CAPSULE (FP) PO SCH ×5 (06:48→22:12)
[2020-09-04] MEDS: PRENATAL VITAMINS W/ FOLIC ACID TABLET (FP) PO SCH (10:18)
[2020-09-04] MEDS: NICOTINE 7 MG/24 HOURS TOPICAL PATCH TD SCH (10:18)
--- NOTE | 2020-09-04 13:59 | PN ---
S CIWA - CIWA Score Nausea/Vomitin-No Nausea/No Vomiting Muscle Tremors: 1-None Visible, but [place] Anxiety: 1-Mildly Anxious Agitation: 0-Normal Activity Paroxysmal Sweats: No Perspiration Orientation: 0-Oriented Tacttile Disturbances: 0-None Auditory Disturbances: 0-None Visual Disturbances: 0-None Headache: 1-Very Mild CIWA-Ar Total Score: 3 BHS Progress Note (SOAP) Subjective: 70 years old female was admitted on 09/01/20 for alcohol withdrawal sx management treating with librium detox regiment ms ricardo states that she uses cane for "years" since left foot surgery "bunion" removed Objective: 09/04/20 13:59 Vital Signs - 24 hr 09/03/20 09/03/20 09/04/20 16:50 20:40 07:16 Temperature 97.3 F L 98.7 F 97.5 F L Pulse Rate 78 74 77 Respiratory 17 17 18 Rate Blood Pressure 122/66 128/74 140/84 O2 Sat by Pulse 95 98 Oximetry (%) 09/04/20 09/04/20 09:16 12:37 Temperature 96.2 F L 97.3 F L Pulse Rate 72 77 Respiratory 18 18 Rate Blood Pressure 143/80 117/68 O2 Sat by Pulse 98 Oximetry (%) Laboratory Tests 09/01/20 09/01/20 09/01/20 14:00 14:15 14:15 WBC 7.4 RBC 3.75 Hgb 12.8 Hct 37.7 MCV 100.5 H MCH 34.3 H MCHC 34.1 RDW 14.5 Plt Count 293 MPV 8.6 Sodium 141 Potassium 3.4 L Chloride 106 Carbon Dioxide 26 Anion Gap 9 BUN 18.0 Creatinine 0.7 Est GFR (CKD-EPI)AfAm 101.74 Est GFR (CKD-EPI)NonAf 87.78 Random Glucose 107 H Calcium 9.0 Total Bilirubin 0.5 AST 29 ALT 45 Alkaline Phosphatase 61 Total Protein 7.0 Albumin 3.2 L Syphilis Serology RPR Titer COVID-19 ([facility]) Not detected 09/01/20 09/01/20 14:15 14:15 WBC RBC Hgb Hct MCV MCH MCHC RDW Plt Count MPV Sodium Potassium Chloride Carbon Dioxide Anion Gap BUN Creatinine Est GFR (CKD-EPI)AfAm Est GFR (CKD-EPI)NonAf Random Glucose Calcium Total Bilirubin AST ALT Alkaline Phosphatase Total Protein Albumin Syphilis Serology Reactive A* RPR Titer Reactive 1:1 H D COVID-19 ([facility]) 09/04/20 14:00 syphilis contact treated Assessment: 09/04/20 14:01 alcohol withdrawal Plan: librium regiment
[2020-09-04] MEDS: ATORVASTATIN CA 40 MG TABLET (FP) PO SCH (22:12)
[2020-09-04] MEDS: THIAMINE HCL 100 MG TABLET (FP) PO SCH (22:12)
[2020-09-04] MEDS: MELATONIN 5 MG TABLETS PO SCH (22:12)
[2020-09-04] MEDS: MIRTAZAPINE 15 MG TABLET (FP) PO SCH (22:12)
[2020-09-05] MEDS ORDERED: LEVOTHYROXINE NA 25 MCG TABLET (FP) ONE (04:09)
[2020-09-05] MEDS ORDERED: LEVOTHYROXINE NA 100 MCG TABLET (FP) ONE (04:10)
[2020-09-05] MEDS: chlordiazePOXIDE HCL 10 MG CAPSULE PO SCH ×2 (05:49→18:04)
[2020-09-05] MEDS: hydrOXYzine PAMOATE 25 MG CAPSULE (FP) PO SCH ×5 (05:49→22:25)
[2020-09-05] MEDS: LEVOTHYROXINE 50 MCG, LEVOTHYROXINE 100 MCG PO SCH (06:23)
[2020-09-05] MEDS: PRENATAL VITAMINS W/ FOLIC ACID TABLET (FP) PO SCH (09:46)
[2020-09-05] MEDS: NICOTINE 7 MG/24 HOURS TOPICAL PATCH TD SCH (09:46)
--- NOTE | 2020-09-05 09:58 | PN ---
S CIWA - CIWA Score Nausea/Vomitin-No Nausea/No Vomiting Muscle Tremors: 1-None Visible, but [place] Anxiety: 0-No Anxiety, at Ease Agitation: 0-Normal Activity Paroxysmal Sweats: No Perspiration Orientation: 0-Oriented Tacttile Disturbances: 0-None Auditory Disturbances: 0-None Visual Disturbances: 1-Very Mild Sensitivity Headache: 0-None Present CIWA-Ar Total Score: 2 S Progress Note (SOAP) Subjective: 70 years old female was admitted on 09/01/20 for alcohol withdrawal sx management treating with librium detox regiment feels better today discussing aftercare with staff ms ricardo prefers bridging access to care for her alcohol abuse treatment Objective: 09/05/20 09:59 Vital Signs - 24 hr 09/04/20 09/04/20 09/04/20 12:37 16:39 20:46 Temperature 97.3 F L 97.5 F L 97.5 F L Pulse Rate 77 73 83 Respiratory 18 18 18 Rate Blood Pressure 117/68 143/74 138/78 O2 Sat by Pulse 98 95 Oximetry (%) 09/05/20 09/05/20 07:02 09:12 Temperature 97.7 F 96 F L Pulse Rate 89 77 Respiratory 18 20 Rate Blood Pressure 123/67 116/66 O2 Sat by Pulse 98 98 Oximetry (%) Laboratory Tests 09/01/20 09/01/20 09/01/20 14:00 14:15 14:15 WBC 7.4 RBC 3.75 Hgb 12.8 Hct 37.7 MCV 100.5 H MCH 34.3 H MCHC 34.1 RDW 14.5 Plt Count 293 MPV 8.6 Sodium 141 Potassium 3.4 L Chloride 106 Carbon Dioxide 26 Anion Gap 9 BUN 18.0 Creatinine 0.7 Est GFR (CKD-EPI)AfAm 101.74 Est GFR (CKD-EPI)NonAf 87.78 Random Glucose 107 H Calcium 9.0 Total Bilirubin 0.5 AST 29 ALT 45 Alkaline Phosphatase 61 Total Protein 7.0 Albumin 3.2 L Syphilis Serology RPR Titer COVID-19 ([facility]) Not detected 09/01/20 09/01/20 14:15 14:15 WBC RBC Hgb Hct MCV MCH MCHC RDW Plt Count MPV Sodium Potassium Chloride Carbon Dioxide Anion Gap BUN Creatinine Est GFR (CKD-EPI)AfAm Est GFR (CKD-EPI)NonAf Random Glucose Calcium Total Bilirubin AST ALT Alkaline Phosphatase Total Protein Albumin Syphilis Serology Reactive A* RPR Titer Reactive 1:1 H D COVID-19 ([facility]) 09/05/20 10:00 K+ 3.4 encourage potassium rich food "orange juice" "banana" syphilis contacted treated Assessment: 09/05/20 10:01 alcohol withdrawal Plan: librium regiment
[2020-09-05] MEDS: MELATONIN 5 MG TABLETS PO SCH (22:25)
[2020-09-05] MEDS: THIAMINE HCL 100 MG TABLET (FP) PO SCH (22:25)
[2020-09-05] MEDS: MIRTAZAPINE 15 MG TABLET (FP) PO SCH (22:25)
[2020-09-05] MEDS: ATORVASTATIN CA 40 MG TABLET (FP) PO SCH (22:25)
[2020-09-06] MEDS ORDERED: chlordiazePOXIDE HCL 10 MG CAPSULE PO ONE (05:00)
[2020-09-06] MEDS: hydrOXYzine PAMOATE 25 MG CAPSULE (FP) PO SCH ×2 (05:33→10:09)
[2020-09-06] MEDS: LEVOTHYROXINE 50 MCG, LEVOTHYROXINE 100 MCG PO SCH (06:34)
[2020-09-06 08:57] VITALS: BP 108/69; PULSE 70; TEMP 97.8
[2020-09-06] MEDS: PRENATAL VITAMINS W/ FOLIC ACID TABLET (FP) PO SCH (10:08)
[2020-09-06] MEDS: NICOTINE 7 MG/24 HOURS TOPICAL PATCH TD SCH (10:09)
--- NOTE | 2020-09-06 10:44 | DS ---
[facility] Detox Discharge Summary Admission Date: 09/01/20 Discharge Date: 09/06/20 - History Present History: Alcohol Dependence Additional Comments: 70 years old female was admitted on 09/01/20 for alcohol withdrawal sx management treating with librium detox regiment seen by psychiatrist susan camp ms ricardo has completed the detox regiment and is tolerated well General Appearance: Yes: No Apparent Distress, Nourished, Appropriately Dressed HEENTM: Yes: EOMI, Hearing grossly Normal, Normocephalic, Normal Voice Respiratory: Yes: Lungs Clear, No Respiratory Distress, No Accessory Muscle Use Neck: Yes: Within Normal Limits, Supple Breast: Yes: Breast Exam Deferred Cardiology: Yes: Regular Rhythm, Regular Rate Abdominal: Yes: Normal Bowel Sounds, Non Tender, Flat, Soft Genitourinary: Yes: Other (deferred) Back: Yes: Normal Inspection Musculoskeletal: Yes: Gait Steady (with use of a cane) Extremities: Yes: Normal Inspection, Non-Tender Neurological: Yes: Alert, Normal Response Integumentary: Yes: Normal Color, Dry, Warm Pertinent Past History: time for discharge 45 minutes transferred order set from detox to rehab admission - Physical Exam Results Vital Signs: Vital Signs Temperature 97.8 F 09/06/20 08:57 Pulse Rate 70 09/06/20 08:57 Respiratory Rate 16 09/06/20 08:57 Blood Pressure 108/69 09/06/20 08:57 O2 Sat by Pulse Oximetry (%) 97 09/06/20 08:57 Pertinent Admission Physical Exam Findings: alcohol withdrawal Vital Signs - 24 hr 09/05/20 09/05/20 09/05/20 13:01 16:47 20:57 Temperature 98.1 F 96.4 F L 97.3 F L Pulse Rate 76 73 75 Respiratory 16 17 16 Rate Blood Pressure 102/63 127/73 144/71 O2 Sat by Pulse 98 98 Oximetry (%) 09/06/20 09/06/20 06:33 08:57 Temperature 97.1 F L 97.8 F Pulse Rate 79 70 Respiratory 18 16 Rate Blood Pressure 141/73 108/69 O2 Sat by Pulse 97 97 Oximetry (%) Laboratory Tests 09/01/20 09/01/20 09/01/20 14:00 14:15 14:15 WBC 7.4 RBC 3.75 Hgb 12.8 Hct 37.7 MCV 100.5 H MCH 34.3 H MCHC 34.1 RDW 14.5 Plt Count 293 MPV 8.6 Sodium 141 Potassium 3.4 L Chloride 106 Carbon Dioxide 26 Anion Gap 9 BUN 18.0 Creatinine 0.7 Est GFR (CKD-EPI)AfAm 101.74 Est GFR (CKD-EPI)NonAf 87.78 Random Glucose 107 H Calcium 9.0 Total Bilirubin 0.5 AST 29 ALT 45 Alkaline Phosphatase 61 Total Protein 7.0 Albumin 3.2 L Syphilis Serology RPR Titer COVID-19 ([facility]) Not detected 09/01/20 09/01/20 14:15 14:15 WBC RBC Hgb Hct MCV MCH MCHC RDW Plt Count MPV Sodium Potassium Chloride Carbon Dioxide Anion Gap BUN Creatinine Est GFR (CKD-EPI)AfAm Est GFR (CKD-EPI)NonAf Random Glucose Calcium Total Bilirubin AST ALT Alkaline Phosphatase Total Protein Albumin Syphilis Serology Reactive A* RPR Titer Reactive 1:1 H D COVID-19 ([facility]) syphilis contacted treated - Treatment Hospital Course: Detox Protocol Followed, Detoxed Safely, Responded well, Discharged Condition Good, Rehab Referral Accepted Patient has Accepted a [facility] Referral [facility]: [facility] - Medication Discharge Medications: Ambulatory Orders Mirtazapine [Remeron -] 45 mg PO HS #90 tablet 02/15/17 Atorvastatin Ca [Lipitor] 40 mg PO HS 09/01/20 Levothyroxine [Synthroid -] 150 mcg PO DAILY 09/01/20 - Diagnosis (1) Substance induced mood disorder Current Visit: Yes Status: Suspected (2) Alcohol dependence with uncomplicated withdrawal Current Visit: Yes Status: Acute (3) Syphilis contact, treated Current Visit: Yes Status: Chronic (4) Nicotine dependence Current Visit: Yes Status: Acute Qualifiers: Nicotine product type: cigarettes Substance use status: in withdrawal Qualified Code(s): F17.213 - Nicotine dependence, cigarettes, with withdrawal (5) Hypercholesteremia Current Visit: Yes Status: Chronic (6) Hypothyroidism Current Visit: Yes Status: Chronic Qualifiers: Hypothyroidism type: acquired Qualified Code(s): E03.9 - Hypothyroidism, unspecified - AMA Did Patient Leave Against Medical Advice: No CIWA Score - CIWA Score Nausea/Vomitin-No Nausea/No Vomiting Muscle Tremors: 1-None Visible, but [place] Anxiety: 0-No Anxiety, at Ease Agitation: 0-Normal Activity Paroxysmal Sweats: No Perspiration Orientation: 0-Oriented Tacttile Disturbances: 0-None Auditory Disturbances: 0-None Visual Disturbances: 0-None Headache: 0-None Present CIWA-Ar Total Score: 1
== END 2020-09-06 11:59 | disposition other institution (70) | DRG 897 ==
LOC: YASAS 11:24 → Y3N 12:57
PROVIDERS: ADMIT Allergy & Immunology; ATTEND Allergy & Immunology
PROC: HZ2ZZZZ Detoxification Services for Substance Abuse Treatment (ICD-10-PCS; principal; 2020-09-01)
DX: F10.230 Alcohol dependence with withdrawal, uncomplicated (principal); F17.213 Nicotine dependence, cigarettes, with withdrawal; F19.24 Other psychoactive substance dependence with psychoactive substance-induced mood disorder; F34.1 Dysthymic disorder; E78.00 Pure hypercholesterolemia, unspecified; E03.9 Hypothyroidism, unspecified; A53.0 Latent syphilis, unspecified as early or late; G47.00 Insomnia, unspecified; U07.0 Vaping-related disorder; Z99.89 Dependence on other enabling machines and devices; Z91.5 Personal history of self-harm
CPT/HCPCS: 36415; 80053; 85027; 86593; 86780; C9803; U0003

== ENCOUNTER 2021-05-16 13:38 | Inpatient (IN) | payer MEDICARE, OTHER ==
[2021-05-16 16:10] VITALS: BMI 26.7
[2021-05-16] MEDS ORDERED: ACETAMINOPHEN 325 MG TABLET (FP) PO PRN ×2 (19:34)
[2021-05-16] MEDS ORDERED: MAG HYDROX/AL HYDROX/SIMETH 30 ML UNIT-DOSE CUP PO PRN (19:34)
[2021-05-16] MEDS ORDERED: MENTHOL/PHENOL 1 EACH UD MM PRN (19:34)
[2021-05-16] MEDS ORDERED: BISMUTH SUBSALICYLATE 524 MG/30 ML PO PRN (19:34)
[2021-05-16] MEDS ORDERED: MAGNESIUM CITRATE 300 ML BOTTLE PO PRN (19:34)
[2021-05-16] MEDS ORDERED: METHOCARBAMOL 500 MG TABLET PO PRN (19:34)
[2021-05-16] MEDS ORDERED: ONDANSETRON *ODT* 4 MG TABLET SL PRN (19:34)
[2021-05-16] MEDS ORDERED: MAGNESIUM HYDROX 2400MG/30ML ORAL SUSPENSION 30 ML CUP PO PRN (19:34)
[2021-05-16] MEDS ORDERED: IBUPROFEN 400 MG TABLET (FP) PO PRN (19:34)
[2021-05-16] MEDS ORDERED: LORazepam 1 MG TABLET PO PRN (19:38)
[2021-05-16] MEDS: LORazepam 2 MG TABLET PO SCH (22:04)
[2021-05-16] MEDS: THIAMINE HCL 100 MG TABLET (FP) PO SCH (22:04)
[2021-05-16] MEDS: hydrOXYzine PAMOATE 25 MG CAPSULE (FP) PO SCH (22:04)
[2021-05-16] MEDS: MELATONIN 5 MG TABLETS PO SCH (22:04)
[2021-05-17] MEDS: hydrOXYzine PAMOATE 25 MG CAPSULE (FP) PO SCH ×5 (06:00→22:53)
[2021-05-17] MEDS: LORazepam 2 MG TABLET PO SCH ×4 (06:00→22:50)
[2021-05-17] MEDS: PRENATAL VITAMINS W/ FOLIC ACID TABLET (FP) PO SCH (10:53)
[2021-05-17 13:43] LABS: HEMATOCRIT 38.6 % (32.4-45.2); HEMOGLOBIN 12.7 GM/dL (10.7-15.3); MCH 32.9 pg (25.7-33.7); MCHC 32.9 g/dl (32.0-36.0); MEAN CELL VOLUME 99.9 fl (80-96); MEAN PLT VOLUME 8.8 fl (7.5-11.1); PLATELET COUNT 261 10^3/uL (134-434); RBC 3.86 M/mm3 (3.60-5.2); RDW 14.6 % (11.6-15.6); WHITE BLOOD COUNT 8.6 K/mm3 (4.0-10.0)
[2021-05-17 13:53] LABS: CALCIUM 8.8 mg/dL (8.5-10.1); CREATININE 0.5 mg/dL (0.55-1.3)
[2021-05-17 13:55] LABS: ALBUMIN 3.4 g/dl (3.4-5.0); BLOOD UREA NITROGEN 20.8 mg/dL (7-18); TOT PROT 6.5 g/dl (6.4-8.2)
[2021-05-17 14:05] LABS: BILIRUBIN,TOTAL 0.3 mg/dL (0.2-1)
[2021-05-17] MEDS: THIAMINE HCL 100 MG TABLET (FP) PO SCH (22:50)
[2021-05-17] MEDS: MIRTAZAPINE 15 MG TABLET (FP) PO SCH (22:50)
[2021-05-17] MEDS: MELATONIN 5 MG TABLETS PO SCH (22:53)
[2021-05-18] MEDS ORDERED: LEVOTHYROXINE NA 25 MCG TABLET (FP) ONE (05:28)
[2021-05-18] MEDS ORDERED: LEVOTHYROXINE NA 100 MCG TABLET (FP) ONE (05:29)
[2021-05-18] MEDS: LORazepam 1 MG TABLET PO SCH ×4 (05:41→22:09)
[2021-05-18] MEDS: hydrOXYzine PAMOATE 25 MG CAPSULE (FP) PO SCH ×5 (05:41→22:09)
[2021-05-18] MEDS ORDERED: LEVOTHYROXINE NA 150 MCG TABLET PO SCH (07:00)
[2021-05-18] MEDS: LEVOTHYROXINE 100 MCG, LEVOTHYROXINE 50 MCG PO SCH (07:34)
[2021-05-18] MEDS: PRENATAL VITAMINS W/ FOLIC ACID TABLET (FP) PO SCH (10:31)
[2021-05-18] MEDS: LOPERAMIDE HCL 2 MG CAPSULE PO PRN (13:40)
[2021-05-18] MEDS: amLODIPine BESYLATE 5 MG TABLET (FP) PO SCH (13:58)
[2021-05-18] MEDS: THIAMINE HCL 100 MG TABLET (FP) PO SCH (22:08)
[2021-05-18] MEDS: MIRTAZAPINE 15 MG TABLET (FP) PO SCH (22:08)
[2021-05-18] MEDS: MELATONIN 5 MG TABLETS PO SCH (22:09)
[2021-05-19] MEDS ORDERED: LORazepam 0.5 MG TABLET PO PRN
[2021-05-19] MEDS: LORazepam 0.5 MG TABLET PO SCH ×4 (05:57→23:21)
[2021-05-19] MEDS: hydrOXYzine PAMOATE 25 MG CAPSULE (FP) PO SCH ×5 (05:57→21:47)
[2021-05-19] MEDS ORDERED: LEVOTHYROXINE NA 25 MCG TABLET (FP) ONE (05:59)
[2021-05-19] MEDS ORDERED: LEVOTHYROXINE NA 100 MCG TABLET (FP) ONE (05:59)
[2021-05-19] MEDS: LEVOTHYROXINE 100 MCG, LEVOTHYROXINE 50 MCG PO SCH (06:00)
[2021-05-19] MEDS: PRENATAL VITAMINS W/ FOLIC ACID TABLET (FP) PO SCH (10:18)
[2021-05-19] MEDS: amLODIPine BESYLATE 5 MG TABLET (FP) PO SCH (10:19)
[2021-05-19] MEDS: THIAMINE HCL 100 MG TABLET (FP) PO SCH (21:47)
[2021-05-19] MEDS: MIRTAZAPINE 15 MG TABLET (FP) PO SCH (21:47)
[2021-05-19] MEDS: MELATONIN 5 MG TABLETS PO SCH (21:48)
[2021-05-20] MEDS ORDERED: LEVOTHYROXINE NA 25 MCG TABLET (FP) ONE (03:23)
[2021-05-20] MEDS ORDERED: LEVOTHYROXINE NA 100 MCG TABLET (FP) ONE (03:23)
[2021-05-20] MEDS ORDERED: LORazepam 0.5 MG TABLET PO ONE (05:00)
[2021-05-20] MEDS: hydrOXYzine PAMOATE 25 MG CAPSULE (FP) PO SCH (05:47)
[2021-05-20] MEDS: LEVOTHYROXINE 100 MCG, LEVOTHYROXINE 50 MCG PO SCH (07:46)
[2021-05-20] MEDS: LOPERAMIDE HCL 2 MG CAPSULE PO PRN (07:58)
[2021-05-20 10:03] VITALS: BP 123/66; PULSE 79; TEMP 96.8
== END 2021-05-20 09:55 | disposition home or self-care (01) | DRG 897 ==
LOC: YASAS 13:38 → Y6N 20:25
PROVIDERS: ADMIT Allergy & Immunology; ATTEND Allergy & Immunology
PROC: HZ2ZZZZ Detoxification Services for Substance Abuse Treatment (ICD-10-PCS; principal; 2021-05-16)
DX: F10.230 Alcohol dependence with withdrawal, uncomplicated (principal); F33.1 Major depressive disorder, recurrent, moderate; K51.919 Ulcerative colitis, unspecified with unspecified complications; F10.282 Alcohol dependence with alcohol-induced sleep disorder; F43.10 Post-traumatic stress disorder, unspecified; I10 Essential (primary) hypertension; E03.9 Hypothyroidism, unspecified; E78.5 Hyperlipidemia, unspecified; E78.00 Pure hypercholesterolemia, unspecified; Z86.19 Personal history of other infectious and parasitic diseases
CPT/HCPCS: 36415; 80053; 85027; 86593; 86780; C9803; U0003; U0005

== ENCOUNTER 2022-04-02 10:28 | Inpatient (IN) | payer MEDICARE, OTHER ==
[2022-04-02] MEDS ORDERED: ONDANSETRON *ODT* 4 MG TABLET SL PRN (11:37)
[2022-04-02] MEDS ORDERED: BISMUTH SUBSALICYLATE 262 MG/15 ML BTL PO PRN (11:37)
[2022-04-02] MEDS ORDERED: NICOTINE 10 MG CARTRIDGE (INHALER) IH PRN (11:37)
[2022-04-02] MEDS ORDERED: MAGNESIUM HYDROX 2400MG/30ML ORAL SUSPENSION 30 ML CUP PO PRN (11:37)
[2022-04-02] MEDS ORDERED: MAGNESIUM CITRATE 300 ML BOTTLE PO PRN (11:37)
[2022-04-02] MEDS ORDERED: IBUPROFEN 400 MG TABLET (FP) PO PRN (11:37)
[2022-04-02] MEDS ORDERED: ACETAMINOPHEN 325 MG TABLET (FP) PO PRN ×2 (11:37)
[2022-04-02] MEDS ORDERED: MAG HYDROX/AL HYDROX/SIMETH 30 ML UNIT-DOSE CUP PO PRN (11:37)
[2022-04-02] MEDS ORDERED: LOPERAMIDE HCL 2 MG CAPSULE PO PRN (11:37)
[2022-04-02] MEDS ORDERED: METHOCARBAMOL 500 MG TABLET PO PRN (11:37)
[2022-04-02] MEDS ORDERED: DICYCLOMINE HCL 10 MG CAPSULE PO PRN (11:37)
[2022-04-02] MEDS ORDERED: BENZOCAINE/MENTHOL (CHLORASEPTIC ) LOZENGE MM PRN (11:37)
[2022-04-02 13:14] VITALS: BMI 27.2
[2022-04-02] MEDS: LORazepam 1 MG TABLET PO PRN (13:40)
[2022-04-02] MEDS: PRENATAL VITAMINS W/ FOLIC ACID TABLET (FP) PO SCH (13:45)
[2022-04-02] MEDS: LORazepam 2 MG TABLET PO SCH ×2 (18:08→22:29)
[2022-04-02] MEDS ORDERED: MIRTAZAPINE 15 MG TABLET (FP) PO SCH (22:00)
[2022-04-02] MEDS: THIAMINE HCL 100 MG TABLET (FP) PO SCH (22:27)
[2022-04-02] MEDS: ATORVASTATIN CA 40 MG TABLET (FP) PO SCH (22:27)
[2022-04-02] MEDS: MELATONIN 5 MG TABLETS PO SCH (23:04)
[2022-04-03] MEDS: LORazepam 2 MG TABLET PO SCH ×4 (06:00→22:45)
[2022-04-03] MEDS ORDERED: LEVOTHYROXINE NA 100 MCG TABLET (FP) ONE (07:53)
[2022-04-03] MEDS ORDERED: LEVOTHYROXINE NA 25 MCG TABLET (FP) ONE (07:53)
[2022-04-03] MEDS: LEVOTHYROXINE 100 MCG, LEVOTHYROXINE 50 MCG PO SCH (08:28)
[2022-04-03] MEDS ORDERED: LEVOTHYROXINE NA 150 MCG TABLET PO SCH (10:00)
[2022-04-03] MEDS: PRENATAL VITAMINS W/ FOLIC ACID TABLET (FP) PO SCH (10:13)
[2022-04-03 11:26] LABS: HEMATOCRIT 37.4 % (32.4-45.2); HEMOGLOBIN 12.1 GM/dL (10.7-15.3); MCH 31.8 pg (25.7-33.7); MCHC 32.4 g/dl (32.0-36.0); MEAN CELL VOLUME 98.2 fl (80-96); MEAN PLT VOLUME 9.1 fl (7.5-11.1); PLATELET COUNT 280 10^3/uL (134-434); RBC 3.81 M/mm3 (3.60-5.2); RDW 15.6 % (11.6-15.6); WHITE BLOOD COUNT 5.9 K/mm3 (4.0-10.0)
[2022-04-03 11:55] LABS: CALCIUM 8.7 mg/dL (8.5-10.1); TOT PROT 6.8 g/dl (6.4-8.2)
[2022-04-03 11:56] LABS: ALBUMIN 3.2 g/dl (3.4-5.0)
[2022-04-03 11:57] LABS: BLOOD UREA NITROGEN 17.9 mg/dL (7-18)
[2022-04-03 11:59] LABS: CREATININE 0.8 mg/dL (0.55-1.3)
[2022-04-03 12:00] LABS: BILIRUBIN,TOTAL 0.4 mg/dL (0.2-1)
[2022-04-03] MEDS: hydrOXYzine PAMOATE 25 MG CAPSULE (FP) PO PRN (19:08)
[2022-04-03] MEDS: LORazepam 1 MG TABLET PO PRN (19:08)
[2022-04-03] MEDS: ATORVASTATIN CA 40 MG TABLET (FP) PO SCH (21:28)
[2022-04-03] MEDS: THIAMINE HCL 100 MG TABLET (FP) PO SCH (21:28)
[2022-04-03] MEDS: MELATONIN 5 MG TABLETS PO SCH (21:28)
[2022-04-03] MEDS ORDERED: MIRTAZAPINE 15 MG TABLET (FP) PO ONE (22:00)
[2022-04-04] MEDS: LORazepam 1 MG TABLET PO SCH ×3 (06:38→18:27)
[2022-04-04] MEDS: LEVOTHYROXINE 100 MCG, LEVOTHYROXINE 50 MCG PO SCH (06:39)
[2022-04-04] MEDS: PRENATAL VITAMINS W/ FOLIC ACID TABLET (FP) PO SCH (10:22)
[2022-04-04 14:08] LABS: SARS-CoV-2 NAA Not Detected (Not Detected)
[2022-04-04] MEDS: LORazepam 1 MG TABLET PO PRN (15:25)
[2022-04-04] MEDS: hydrOXYzine PAMOATE 25 MG CAPSULE (FP) PO PRN ×2 (15:25→18:27)
[2022-04-04 20:00] VITALS: BP 149/84; PULSE 77; TEMP 98.2
[2022-04-04] MEDS ORDERED: MIRTAZAPINE 15 MG TABLET (FP) PO SCH (22:00)
[2022-04-05] MEDS ORDERED: LORazepam 0.5 MG TABLET PO PRN
[2022-04-05] MEDS: LORazepam 1 MG TABLET PO SCH (01:11)
[2022-04-05] MEDS: THIAMINE HCL 100 MG TABLET (FP) PO SCH (01:12)
[2022-04-05] MEDS: ATORVASTATIN CA 40 MG TABLET (FP) PO SCH (01:12)
[2022-04-05] MEDS: MELATONIN 5 MG TABLETS PO SCH (01:12)
[2022-04-05] MEDS ORDERED: LORazepam 0.5 MG TABLET PO SCH (05:00)
[2022-04-06] MEDS ORDERED: LORazepam 0.5 MG TABLET PO ONE (05:00)
== END 2022-04-04 18:45 | DRG 897 ==
LOC: YASAS 10:28 → Y3N 12:53
PROVIDERS: ADMIT Allergy & Immunology; ATTEND Allergy & Immunology
PROC: HZ2ZZZZ Detoxification Services for Substance Abuse Treatment (ICD-10-PCS; principal; 2022-04-02)
DX: F10.230 Alcohol dependence with withdrawal, uncomplicated (principal); F33.9 Major depressive disorder, recurrent, unspecified; R45.851 Suicidal ideations; F17.210 Nicotine dependence, cigarettes, uncomplicated; I10 Essential (primary) hypertension; G47.00 Insomnia, unspecified; E78.5 Hyperlipidemia, unspecified; E05.90 Thyrotoxicosis, unspecified without thyrotoxic crisis or storm; Z91.51 Personal history of suicidal behavior; Z56.0 Unemployment, unspecified
CPT/HCPCS: 36415; 80053; 85027; 86593; 86780; 87811; C9803-CS; U0003; U0005